=== PATIENT | female | born 1960 | race Caucasian/White ===

== ENCOUNTER 2024-03-31 09:33 | Outpatient (REF) | payer OTHER, SELFPAY ==
[2024-03-31 17:41] LABS: MANUAL DIFF FLAG NO
[2024-03-31 17:59] LABS: Basophils Absolute Auto 0.1 X10*3/uL (0.0-0.2); Basophils Percent Auto 1.8 % (0-2); Eosinophils Absolute Auto 0.1 X10*3/uL (0.0-0.4); Eosinophils Percent Auto 2.2 % (0-4); Hematocrit 40.8 % (37.0-47.0); Hemoglobin 13.4 g/dl (12.0-16.0); Lymphocytes Absolute Auto 1.1 X10*3/uL (1.2-4.9); Lymphocytes Percent Auto 38.3 % (20-40); Mean Corpuscular HGB Conc 32.8 g/dl (31.0-35.0); Mean Corpuscular Hemoglobin 32.5 pg (27.0-33.0); Mean Platelet Volume 12.2 fL (9.4-12.3); Monocytes Absolute Auto 0.3 X10*3/uL (0.1-1.2); Monocytes Percent Auto 11.6 % (2-11); Neutrophils Absolute Auto 1.3 x10*3/uL (2.0-8.3); Neutrophils Percent Auto 46.1 % (45-73); Platelet Count 190 X10*3/uL (160-400); Red Blood Count 4.12 X10*6/uL (4.20-5.50); Red Cell Distribution Width 13.8 % (11.0-16.0); White Blood Count 2.8 X10*3/uL (4.8-10.8)
[2024-03-31 18:09] LABS: Alanine Aminotransferase 89 U/L (0-31); Aspartate Amino Transferase 55 U/L (5-31); C Reactive Protein < 0.10 mg/dL (< or = 0.50); Estimated Glomerular Filt Rate > 60
[2024-03-31 18:46] LABS: Erythrocyte Sedimentation Rate 13 MM/HR (0-20)
[2024-04-01 08:09] LABS: HBS Num1 62.02 mIU/mL (0-7.99); HBc Num1 0.05 S/CO (0.00-0.79); HBsAGNum1 0.42 S/CO (0.00-0.99); Hepatitis B Core Antibody Nonreactive (Nonreactive); Hepatitis B Surface Antigen Negative (Negative); ~HepC Num1 0.09 S/CO (0.00-0.79); ~Hepatitis B Surface Antibody REACTIVE (Nonreactive); ~Hepatitis C Antibody Nonreactive (Nonreactive)
[2024-04-03 13:38] LABS: TS Negative Control Passed; TS Panel A 1; TS Panel B 2; TS Positive Control Passed; TSpotTB Negative (Negative)
== END 2024-03-31 09:34 | disposition home or self-care (01) ==
LOC: HO.HKASLDS 09:33
PROVIDERS: PCP Internal Medicine; Visit Provider Internal Medicine Rheumatology
DX: Z79.899 Other long term (current) drug therapy (principal); Z79.60 Long term (current) use of unspecified immunomodulators and immunosuppressants
CPT/HCPCS: 36415; 82565; 84450; 84460; 85025; 85652; 86140; 86481; 86704; 86706; 86803; 87340

== ENCOUNTER 2024-03-31 09:33 | Outpatient (AMB) | payer OTHER, SELFPAY ==
--- OUTSIDE RECORDS SUMMARY | 2024-03-31 09:35 | XMS_ITS ---
Author Organization [facility] Address [address] [facility] [address] [place] [address] Care Team Providers Care Personnel Director Name Role Phone Kayla Casarez MD Primary Care Provider Cami Biswas Unavailable [phone] Allergies Allergen (clinical drug ingredient) Drug/Non Drug Allergy documented on EMR Reaction Allergy Type Onset Date Status amoxicillin Amoxicillin hives Drug Allergy Act turner shrimp allergenic extract Shrimp (Diagnostic) Unknown Drug Allergy Active REASON FOR VISIT Wart(s) Medications Medication SIG (Take, Route, Frequency, Duration) Notes Start Date End Date Status Night Splint AFO - L1930 as directed 04/22/2018 Not-Taking Humira 10 MG/0.2ML as directed Subcutaneous Active Levothyroxine Sodium 50 MCG 1 tablet on an empty stomach in the morning Orally Once a day for 30 day(s) Active Methotrexate Sodium 15 MG as directed Orally Active Social History Tobacco Use: Social History Observation Description Date Details (start date - stop date) Never Smoker NA - NA Tobacco Use/Smoking Question Answer Notes Are you a: nonsmoker Additional Findings: Tobacco Non-User Current no n-smoker Alcohol Screen Question Answer Notes Did you have a drink containing alcohol in the p ast year? No Points 0 Interpretation Negative Tobacco use other than smoking: Question Answer Notes Are you an other tobacco user? No Problems Problem Type SNOMED Code ICD Code Onset Dates Problem Status W/U Status Risk Notes Problem Plantar wart (78763766) Plantar wart (B07.0) Active confirmed Vital Signs Blood pressure systolic 124 mm Hg 02/18/20 24 Blood pressure diastolic 70 mm Hg 024 Height 66 in 02/18/2024 Weight 185 lbs 02/18/2024 BMI 29.86 kg/m2 02/18/2024 Procedures Procedure Date Ordered Date Performed Result Body Sit e 13362-Hroo Destruction, 1-14 02/18/2024 N/A Encounters Encounter Location Date Provider Diagnosis [facility] [address] [place] [address] 02/18/2024 Cami Murray Right foot pain M79.671 and Plantar wart B07.0 Assessments Encounter Date Diagnosis (ICD Code) Assessment Notes Treatment Notes Treatment Clinical Notes Section Notes 02/18/2024 Right foot pain (ICD-10 - M79.671) 02/18/2024 Plantar wart (ICD-10 - B07.0) Plan Of Treatment Pending Test Test Name Order Date 71556-Xbwe Destruction, 1-02/18/2024 Next Appt Details Follow Up: 2 Months, Reason: Provider Name:Cami cruz, 04/28/2024 03:45:00 PM, [address] [place] [address], [phone], Procedure Notes * Category Sub-Category Detail Notes Wart Treatment Procedure Verruca, as desc ribed in exam, were debrided to pin- point bleeding margins with sterile 15 surgical blade, silver nitrate chemocautery applied, recomm. immune-boosting meds such as zinc, recomm. follow up with topical chemosurgical agents, Pt defers any other forms of tx - 25504 Progress Notes * Rozina BONILLA ADOB:[birth year] (63 yo F)Acc No.[id number]:02/18/2024 Progress Note Patient:?BEREPILIRozina A Provider:?Cami Murray DPM :1960???Age:63 Y???Sex:Female D ate:02/18/2024 Address:[address] [place], [place] [id number] Pcp:Kayla Casarez MD Subjective: * Chief Complaints: * ???Wart(s) * HPI: ???Skin problems:?Pt States PCP Visit: ?DATE?11/10/2023 * ROS:?General/Constitutional:?Nausea?denies.?Vomiting?denies.?Hunger Thirst?denies.?Loss appetite?denies.?Chills?denies.?Fatigue?denies.?Fever?denies.?Night Sweats?denies.?Unexplained weight loss?denies.?Unexplained weight gain?denies.?HEENTM:?Dentures?denies.?Dizziness?denies.?Glasses/contacts?admits.?Retinopathy?de nies.?Blurred/double vision?denies.?TMJ?denies.?Discharge/drainage?denies.?Implants?denies.?Sore throat?denies.?Dental implants?denies.?Hard of hearing ?denies.?Difficulty chewing/swallowing/speaking?denies.?Nose bleeds?denies.?Sore mouth?denies.?Respiratory:?On Oxygen?denies.?Pneumonia/pleurisy?denies.?Bronchitis?denies.?Emphysema?denies.?C oughing?denies.?Cough blood?denies.?Shortness of breath?denies.?Wheezing?denies.?Cardiovascular:?Pacemaker?denies.?MVP?denies.?WPW?denies.?CHF?denies.?Heart attack?denies.?Septal defect?denies.?Rapid beat?denies.?Chest pain ?denies.?Atrial Fib.?denies.?Murmur/Palpitations?denies.?Gastrointestinal:?Hemorrhoids?denies.?Stomach/Abdominal pain?denies.?Dark blood stool?denies.?Irritable bowel ?denies.?Constipation?denies.?Diarrhea?denies.?Hematology:?Swelling?denies.?Clots?denies.?Varicose Veins?denies.?Bruising?denies.?Bleeding problem?denies.?Genitourinary:?Blood urine?denies.?Frequent/Painfu/urination/bladder control?denies.?Kidney stones?denies.?Infection (UTI)?denies.?Nephropathy?denies.?sex trans dis (STD)?denies.?Prostate?denies.?Musculoskeletal:?Hammertoes?denies.?Bunions?denies.?Back Pain?denies.?Muscle Cramps/ Resting?denies.?Muscle cramps / walking?denies.?Generalized aches and pains?denies.?Weakness?denies.?Integ.:?Mendes?denies.?Scars?denies.?Corns/calluses?admits.?Ingrown nails?denies.?Painful nails?denies.?Open Sores?denies.?Rashes?denies.?Neurologic:?Difficulty sleeping?denies.?Brain disorder?denies.?Numbness?denies.?Balance trouble?denies.?Confusion?denies.?Fainting/blackouts?denies.?Tingling?denies.?Tr emors?denies.? * Medical History:? * Surgical History:?umbilical hernia rt hernia * Hospitalization/Major Diagno stic Procedure:?Denies Past Hospitalization * Family History:?Mother: dece ased, lung cancer.?Father: alive.? * Social History:?Tobacco Use:?Tobacco Use/Smoking?Are you a:?nonsmoker ?Additional Findings: Tobacco Non-User?Current non-smoker ?Tobacco use other than smoking?Are you an other tobacco user??No ???Drugs/Alcohol:?Drugs?Have you used drugs other than those for medical reasons in the past 12 months??No ?Alcohol Screen?Did you have a drink containing alcohol in the past year??No ?Points?0 ?Interpretation?Negative ???Miscellaneous:?Caffeine: yes, 1 cup coffee a day. ?Children: no. ?Exercise: yes, walking, swimming. ?Marital status: . ?Occupation: PA. * Medications:?TakingHumira 10 MG/0.2ML Prefilled Syringe Kit as directed Subcutaneous Levothyroxine Sodium 50 MCG Tablet 1 tablet on an empty stomach in the morning Orally Once a day Methotrexate Sodium 15 MG Tablet as directed Orally Taking Humira 10 MG/0.2ML Prefilled Syringe Kit as directed Subcutaneous Taking Levothyroxine Sodium 50 MCG Tablet 1 tablet on an empty stomach in the morning Orally Once a day Taking Methotrexate Sodium 15 MG Tablet as directed Orally Not-Taking/PRNNight Splint AFO - L1930 as directed Not-Taking/PRN Night Splint AFO - L1930 as directed * Allergies:?Amoxicillin: hive sShrimp (Diagnostic)yes[Allergies Verified] Objective: * Vitals:?Ht: 66, Wt:185, BMI: 29.86, Shoe size:10-11, BP:124/70mm Hg, Wt-k.91 kg. * Examination: ???Dermatologic: ?VERRUCA:?CONT TO, Reveals a Single , multi-loculated , mosaic-patterned, round, raised, flat-topped, petechial bleeding papule(s), with cauliflower appearance and interruption of skin lines, pain to lateral compression, and size estimated at _5__ mm diameter, plantar lateral forefoot, RIGHT foot.? Assessment: * Assessment: 1.?Right foot pain - M79.671 ???2.?Plantar wart - B07.0 (Primary)??? Plan: * Treatment: * Procedures:?Wart Treatment:?Procedure?Verruca, as described in exam, were debrided to pin-point bleeding margins with sterile 15 surgical blade, silver nitrate chemocautery applied, recomm. immune-boosting meds such as zinc, recomm. follow up with topical chemosurgical agents, Pt defers any other forms of tx - 65068.? * Procedure Codes:? * Follow Up:?2 Months * Images: * Sign off status: Completed true * Provider:?Cami Murray DPM Date:?04/19/2023 Generated for Nessa gallegos/Reji/Justiceitting on:?03/31/2024 09:35 AM EST History and Physical Notes * HPI (History of Present Illness) Category Sub-Category Detail Notes Category Not es Skin problems Pt States PCP Visit: DATE: 11/10/2023 Examination Category Sub-Category Detail Notes Category Not es Dermatologic VERRUCA: CONT TO, Reveals a Single , multi-loculated , mosaic-patterned, round, raised, flat-topped, petechial bleeding papule(s), with cauliflower appearance and interruption of skin lines, pain to lateral compression, and size estimated at _5__ mm diameter, plantar lateral forefoot, RIGHT foot
--- OUTSIDE RECORDS SUMMARY | 2024-03-31 09:35 | XMS_ITS ---
Author Organization [facility] Address [address] [place] [address] Care Team Providers Care Sugar Boiler Name Role Phone Kayla Casarez MD Primary Care Provider UnavaCami Rollins Unavailable [phone] REASON FOR VISIT Self Pay Encounters Encounter Location Date Provider Diagnosis [address] [address] 02/18/2024 Cami Murray Plan Of Treatment Next Appt Details Provider Name:Cami cruz, 04/28/2024 03:45:00 PM, [address] [place] [address], [phone], Progress Notes * Rozina BONILLA ADOB:[birth year] (63 yo F)Acc No.[id number]:02/18/2024 Patient:?Rozina BONILLA :1960???Age:63 Y???Sex:Female Address:[address], [address] * true * Date:? Generated for Printi ng/Favivianag/eTransmitting on:?03/31/2024 09:35 AM EST
--- OUTSIDE RECORDS SUMMARY | 2024-03-31 09:36 | XMS_ITS ---
[facility] Address [address] [facility] [place] [address] Care Team Providers Care Air Intelligence Officer Name Role Phone Kayla Casarez MD Primary Care Provider Cami Biswas Unavailable [phone] Chidi Contreras Unavailable [phone] Allergies Allergen (clinical drug ingredient) Drug/Non Drug Allergy documented on EMR Reaction Allergy Type Onset Date Status amoxicillin Amoxicillin hives Drug Allergy Act turner shrimp allergenic extract Shrimp (Diagnostic) Unknown Drug Allergy Active REASON FOR VISIT Wart(s), Last Visit PCP: 10/2022 Medications Medication SIG (Take, Route, Frequency, Duration) Notes Start Date End Date Status Humira 10 MG/0.2ML as directed Subcutaneous Active Levothyroxine Sodium 50 MCG 1 tablet on an empty stomach in the morning Orally Once a day for 30 day(s) Active Methotrexate Sodium 15 MG as directed Orally Active Night Splint AFO - L1930 as directed 04/22/2018 Not-Taking Social History Tobacco Use: Social History Observation [...] Are you an other tobacco user? 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 ; Psoriatic arthritis L40.50 ; Pain in right ankle and joints of right foot M25.571 ; Pain in left ankle and joints of left foot M25.572 and Other chronic pain G89.29 Assessments Encounter Date Diagnosis (ICD Code) Assessment Notes Treatment Notes Treatment Clinical Notes Section Notes 11/12/2023 Other viral warts (ICD-10 - B07.8) 11/12/2023 Pain in left foot (ICD-10 - M79.672) 11/12/2023 Pain in right foot (ICD-10 - M79.671) 11/12/2023 Eccrine poroma of foot, 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) 11/12/2023 Psoriatic arthritis (ICD-10 - L40.50) 11/12/2023 Pain in right ankle and joints of right foot (ICD-10 - M25.571) 11/12/2023 Pain in left ankle and joints of left foot (ICD-10 - M25.572) 11/12/2023 Other chronic pain (ICD-10 - G89.29) Plan Of Treatment Next Appt Details Follow Up: 3 Months, Reason: Provider Name:Cami cruz, 04/28/2024 03:45:00 PM, [address] [place] [address], [phone], Procedure Notes * Category Sub-Category Detail Notes Wart Treatment Procedure Verrucae(s) were debrided to pin-point bleeding margins with sterile surgical blade (91233), silver nitrate chemocautery applied, recomm. Wartstick 40% Salicylic acid application under occlusion as directed Progress Notes * Rozina BONILLA ADOB:[birth year] (63 yo F)Acc No.[id number]:11/12/2023 Progress Note Patient:?Rozina Bonilla Provider:?Chidi Contreras DPM :1960???Age:63 Y???Sex:Female D ate:11/12/2023 Address:[facility] [address] [place] [facility] Pcp:Kayla Casarez MD Subjective: * Chief Complaints: * ???Wart(s)Last Visit PCP: 2022 * HPI: ???Wart:?Nature:?sharp pain.?Location:?plantar forefoot, right.?Duration:?several years ago.?Onset/Cause:?unknown.?Ankle Pain:?Nature:?aching, sharp.?Location:?B/L ankles.?Duration: ?three months .?Onset/Cause:?gradual.?Course:?worse.?Aggravated by:?any pressure, standing, walking.?Treatments:?[facility]; pt may go on new med.?Severity/Quality:?considered 6 out of 10.? * ROS:?General/Constitutional:?Nausea?denies.?Vomiting?denies.?Hunger Thirst?denies.?Loss appetite?denies.?Chills?denies.?Fatigue?denies.?Fever?denies.?Night Sweats?denies.?Unexplained weight loss?denies.?Unexplained [...] ???Miscellaneous:?Caffeine: yes, 1 cup coffee a day. ?no Children. ?Exercise: yes, walking, swimming. ?Marital status: . ?Occupation: PA. * Medications:?TakingHumira 10 MG/0.2ML Prefilled Syringe Kit as directed Subcutaneous Levothyroxine Sodium 50 MCG Tablet 1 tablet on an empty stomach in the morning Orally Once a dayMethotrexate Sodium 15 MG Tablet as directed Orally Taking Humira 10 MG/0.2ML Prefilled Syringe Kit as directed Subcutaneous Taking Levothyroxine Sodium 50 MCG Tablet 1 tablet on an empty stomach in the morning Orally Once a dayTaking Methotrexate Sodium 15 MG Tablet as directed Orally Not-Taking/PRNNight Splint AFO - L1930 as directed Medication List reviewed and reconciled with the patientNot-Taking/PRN Night Splint AFO - L1930 as directed Medication List reviewed and reconciled with the patient * Allergies:?Amoxicillin: hive sShrimp (Diagnostic)yes[Allergies Verified] Objective: * Vitals:?Ht: 66, Wt:185, BMI: 29.86, Shoe size:10-11, BP:124/70 mm Hg. * Examination: ???General Examination: ?GENERAL APPEARANCE:?pleasant, alert, well nourished, well developed, well hydrated, with good attention to hygene/body habitus, and in no acute distress.?ORIENTED:?person,place, and time.?Neurological: ?SENSORY:?Neurological exam reveals intact sensorium, pain sensation normal, vibration sensation intact, pinprick sensation is normal in the lower extremities, pt denies, anesthesia, burning, paresthesia, tingling, B/L, Neurological exam demonstrates pop both medial and lateral rachid ankles.?TINEL'S COMPRESSION:?Negative tarsal tunnel, dominik pedis, and medial calcaneal nerves, B/L.?BABINSKI REFLEX:?Absent, B/L.?Vascular: ?DP PULSES:?2/4, B/L.?PT PULSES:?2/4, B/L.?CAPILLARY FILL TIME:?3 secs. per digit, B/L.?SKIN TEMPERTURE GRADIENT OF THE LOWER EXTERMITIES:?warm to cool, proximal to distal, B/L.?HAIR GROWTH/TEXTURE/ELASTICITY/TURGOR:?normal, B/L.?EDEMA:?no edema.?Dermatologic: ?SKIN FINDINGS:?Skin exam reveals normal texture, elasticity, and tugor. There are no masses. The interspaces are clear.?VERRUCA:?reveals Multiple ( _one plantar?right 5th mtpj__ ), multi- loculated , mosaic, round, raised, flat-topped, petechial bleeding papulae(s), with cauliflower appearance and interrruption of skin lines, with pain to lateral compression, and size estimated at _4-5_ mm diameter, plantar Forefoot, rt 5th.?Heel Pain: ?INSPECTION REVEALS:?POP Plantar Fascia med. and central bands, intrinsic musc., infracalcaneal bursa, and med calc tubercle . No pain: posterior/superior heel, achilles bursa/tendon, sinus tarsi, peroneals; no limited STJ ROM, calor, or eccymosis. Pain on Heel Compression absent.?Orthopedic: ?MUSCLE STRENGTH:?5/5 all groups in a symmetrical fashion B/L.?GAIT ABNORMALITY:?pronated, abducted, B/L.?FOOT MORPHOLOGY:? Pes Planus structure, B/L.?TAILOR'S BUNION:? Prominent, painful, inflammed 5th MTH/MPJ, B/L.? 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 Pain in left ankle and joints of left foot - M25.572?8.?Other chronic pain - G89.29? Plan: * Treatment: * Procedures:?Wart Treatment:?Procedure?Verrucae(s) were debrided to pin-point bleeding margins with sterile surgical blade (10392), silver nitrate chemocautery applied, recomm. Wartstick 40% Salicylic acid application under occlusion as directed.? * Procedure Codes:?45122 Wart Destruction, 1-14, Modifiers: XS * Follow Up:?3 Months * Images: * Sign off status: Completed true * Provider:?Chidi Contreras DPM Date:? 024 Generated for Printi ng/Faxing/eTransmitting on:?03/31/2024 09:35 AM EST History and Physical Notes * HPI (History of Present Illness) Category Sub-Category Detail Notes Category Not es Ankle Pain Duration: three months Nature: aching, sharp Severity/Quality: considered 6 out of 10 Treatments: [facility] Meliton me[facility]; pt may go on new med Course: worse Location: B/L ankles Onset/Cause: gradual Aggravated by: any pressure, standi ng, walking Wart Onset/Cause: unknown Duration: several years ago Location: plantar forefoot, ri ght Nature: sharp pain Examination Category Sub-Category Detail Notes Category Not es Heel Pain INSPECTION REVEALS: POP Plantar Fascia med. and central bands, intrinsic musc., infracalcaneal bursa, and med calc tubercle . No pain: posterior/superior heel, achilles bursa/tendon, sinus tarsi, peroneals; no limited STJ ROM, calor, or eccymosis. Pain on Heel Compression absent Neurological SENSORY: Neurological exa m reveals intact sensorium, pain sensation normal, vibration sensation intact, pinprick sensation is normal in the lower extremities, pt denies, anesthesia, burning, paresthesia, tingling, B/L, Neurological exam demonstrates pop both medial and lateral rachid ankles BABINSKI REFLEX: Absent, B/L TINEL'S COMPRESSION: Negative tarsal supriya fior, dominik pedis, and medial calcaneal nerves, B/L Dermatologic SKIN FINDINGS: Skin exam reveal s normal texture, elasticity, and tugor. There are no masses. The interspaces are clear VERRUCA: reveals Multiple ( _ one plantar right 5th mtpj__ ), multi-loculated , mosaic, round, raised, flat-topped, petechial bleeding papulae(s), with cauliflower appearance and interrruption of skin lines, with pain to lateral compression, and size estimated at _4-5_ mm diameter, plantar Forefoot, rt 5th Orthopedic GAIT ABNORMALITY: pronated, abducted, B/L FOOT MORPHOLOGY: Pes Planus structure , B/L TAILOR'S BUNION: Prominent, painful, inflammed 5th MTH/MPJ, B/L MUSCLE STRENGTH: 5/5 all groups in a symmetrical fashion B/L General Examination GENERAL APPEARANCE: pleasant , alert, well nourished, well developed, well hydrated, with good attention to hygene/body habitus, and in no acute distress ORIENTED: person,place, and ti me Vascular DP PULSES (B): 2/4, B/L PT PULSES (B): 2/4, B/L CAPILLARY FILL TIME: 3 secs. per digit, B/L TEMPERTURE GRADIENT (C): warm to cool, p roximal to distal, B/L TROPHIC CONDITION-TEXTURE/ELASTICITY/TURGOR/HAIR GROWTH (B): normal, B/L EDEMA (C): no edema
--- OUTSIDE RECORDS SUMMARY | 2024-03-31 09:36 | XMS_ITS | Patient Health Record ---
Author Organization [facility] de[facility] [place] Address [address] [place] [address] Care Team Providers Care Cylinder Die Machine Operator Name Role Phone Kayla Casarez MD Primary Care Provider Cami Biswas Unavailable [phone] Chidi Contreras Unavailable [phone] Allergies Allergen (clinical drug ingredient) Drug/Non Drug Allergy documented on EMR Reaction Allergy Type Onset Date Status amoxicillin Amoxicillin hives Drug Allergy Act turner shrimp allergenic extract Shrimp (Diagnostic) Unknown Drug Allergy Active Reason For Referral No Information Medications Medication SIG (Take, Route, Frequency, Duration) Notes Start Date End Date Status Night Splint AFO - L1930 as directed 04/22/2018 Not-Taking Humira 10 MG/0.2ML as directed Subcutaneous Active Levothyroxine Sodium 50 MCG 1 tablet on an empty stomach in the morning Orally Once a day for 30 day(s) Active Methotrexate Sodium 15 MG as directed Orally Active Immunizations Vaccine Route Administration Date Status Comme nts COVID-19 Moderna Vaccine Unknown 11/22/2020 Administered 1st 04/09/2020 2st 05/08/2020 Influenza Unknown 12/22/2020 Administered Social History Tobacco Use: Social History Observation [...] W/U Status Risk Notes Problem Plantar wart (78422612) Plantar wart (B07.0) Active confirmed Problem 94039274 Other chronic pain (G89.29) Active confirmed Problem 551864642 Psoriatic arthritis (L40.50) Active confirmed Vital Signs Blood pressure diastolic 70 mm Hg 02/18/2024 Height 66 in 02/18/2024 Blood pressure systolic 124 mm Hg 02/18/2024 Weight 185 lbs 02/18/2024 BMI 29.86 kg/m2 02/18/2024 Procedures Procedure Date Ordered Date Performed Result Body Sit e 29767-Putm Destruction, 1-14 02/18/2024 N/A Encounters Encounter Location Date Provider Diagnosis [address] [address] 05/14/2023 Chidi Contreras Other viral warts B07.8 ; Pain in left foot M79.672 ; Pain in right foot M79.671 ; Eccrine poroma of foot, 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 ; Psoriatic arthritis L40.50 ; Pain in right ankle and joints of right foot M25.571 ; Pain in left ankle and joints of left foot M25.572 and Other chronic pain G89.[address] [address] 08/13/2023 ChidiZeng Other viral warts B07.8 ; Pain in left foot M79.672 ; Pain in right foot M79.671 ; Eccrine poroma of foot, 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 ; Psoriatic arthritis L40.50 ; Pain in right ankle and joints of right foot M25.571 ; Pain in left ankle and joints of left foot M25.572 and Other chronic pain G89.[address] [address] 11/12/2023 Chidi Contreras Other viral warts B07.8 ; Pain in left foot M79.672 ; Pain in right foot M79.671 ; Eccrine poroma of foot, 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 ; Psoriatic arthritis L40.50 ; Pain in right ankle and joints of right foot M25.571 ; Pain in left ankle and joints of left foot M25.572 and Other chronic pain G89.[address] [facility] [address] 02/18/2024 Cami Trevor Right foot pain M79.671 and Plantar wart B07.[address] [address] [facility]14/[facility] [address] [facility] [address] 02/18/2024 Cami Murray Assessments Encounter Date Diagnosis (ICD Code) Assessment Notes Treatment Notes Treatment Clinical Notes Section Notes 05/14/2023 Other viral warts (ICD-10 - B07.8) 05/14/2023 Pain in left foot (ICD-10 - M79.672) 08/13/2023 Other viral warts (ICD-10 - B07.8) 08/13/2023 Pain in left foot (ICD-10 - M79.672) 11/12/2023 Other viral warts (ICD-10 - B07.8) 02/18/2024 Right foot pain (ICD-10 - M79.671) 02/18/2024 Plantar wart (ICD-10 - B07.0) 11/12/2023 Pain in left foot (ICD-10 - M79.672) 08/13/2023 Pain in right foot (ICD-10 - M79.671) 05/14/2023 Pain in right foot (ICD-10 - M79.671) 05/14/2023 Eccrine poroma of foot, 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) 11/12/2023 Pain in right foot (ICD-10 - M79.671) 08/13/2023 Eccrine poroma of foot, 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) 08/13/2023 Psoriatic arthritis (ICD-10 - L40.50) 11/12/2023 Eccrine poroma of foot, 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) 05/14/2023 Psoriatic arthritis (ICD-10 - L40.50) 08/13/2023 Pain in right ankle and joints of right foot (ICD-10 - M25.571) 05/14/2023 Pain in right ankle and joints of right foot (ICD-10 - M25.571) 11/12/2023 Psoriatic arthritis (ICD-10 - L40.50) 11/12/2023 Pain in right ankle and joints of right foot (ICD-10 - M25.571) 05/14/2023 Pain in left ankle and joints of left foot (ICD-10 - M25.572) 08/13/2023 Pain in left ankle and joints of left foot (ICD-10 - M25.572) 08/13/2023 Other chronic pain (ICD-10 - G89.29) 05/14/2023 Other chronic pain (ICD-10 - G89.29) 11/12/2023 Pain in left ankle and joints of left foot (ICD-10 - M25.572) 11/12/2023 Other chronic pain (ICD-10 - G89.29) Plan Of Treatment Pending Test Test Name Order Date X ray : Foot, left 3V 04/22/2018 X ray : Foot, right 3V 04/22/2018 55479-Oojs Destruction, 1-14 03/31/2019 73126-Zopo Destruction, 1-14 02/18/2024 Next Appt Details Provider Name:Cami Garg nancy, 04/28/2024 03:45:00 PM, [address] [place], [address], Insurance Providers Payer Name Payer Address Payer Phone Subscriber Number Group Number Insured Name Patient Relationship to Insured Coverage Start Date Coverage End Date [facility] [address] [place] [address] [id number] Rozina Bonilla Self - patient is the insured Medical (General) History Medical History History ICD Code Arthritis thyroid Psoriatic arthritis Surgical History Surgery Date(Month/Year) umbilical hernia rt hernia
--- NOTE | 2024-03-31 09:52 | A.OFFVIS_ITS ---
Vital Signs 03/31/24 09:53 Height 5 ft 6 in Weight 186 lb 4 oz BMI 30.1 BP 128/72 Blood Pressure Location Lt brachial Position Sitting Pulse 92 Pulse Source Pulse Oximeter Pulse Oximetry (%) 98 Oxygen Delivery Method Room Air Intake Visit Reasons: Arthritis Allergies Penicillins Allergy (Mild, Verified 03/31/24 09:58) Hives HPI HPI Arthritis: Details: History of psoriatic arthritis. [facility] who started her on leflunomide. She is on leflunomide 20 mg daily, methotrexate subcutaneous injection 15 mg once weekly (.6ml), folic acid 2 mg daily and Humira weekly. She has psoriatic arthritis and reports that she has reduced pain in her ankles but still has swelling and stiffness. She has been experiencing feeling unwell with dizziness since being on leflunomide. She takes leflunomide after dinner. Initially symptoms were more pronounced but she still does not feel like herself prior to leflunomide. Higher doses of methotrexate causes tinnitus. She is currently tolerating tinnitus. She has not been on any other DMARD regimen in the past. Psoriasis is not active. No recent infections. [facility] Medical History (Updated 03/31/24 @ 12:33 by Esequiel Delcid MD) Psoriatic arthritis Review of Systems Const All systems reviewed & are unremarkable except as noted in HPI and below Physical Exam Vital Signs: Last Vital Signs Pulse 92 03/31/24 09:53 BP 128/72 03/31/24 09:53 Pulse Ox 98 03/31/24 09:53 Oxygen Delivery Method Room Air 03/31/24 09:53 BMI result Body Mass Index 30.1 Const Other: General: Comfortable CVS: RRR Respiratory: clear to auscultation bilaterally. Good respiratory effort Skin: No lesions seen MSK: No tenderness of upper extremities. Good range of motion of upper extremities and lower extremities. She has slight swelling of bilateral ankles. Tender bilateral ankles and MTPs. No dactylitis. Assessment & Plan Assessment & Plan (1) Psoriatic arthritis: Comment: She has partial relief with addition of leflunomide in controlling inflammatory arthritis but it is causing side effect of dizziness. Uncontrolled on current regimen. She is currently on 3 immunosuppressive agents. We discussed changing DMARD therapy. I recommended that she switch Humira and leflunomide to Enbrel. We discussed side effects, risks and benefits. Code(s): L40.50 - Arthropathic psoriasis, unspecified Category: Medical Plan: Labs for disease and drug monitoring on high-risk medication ordered this visit At this time she will continue Humira weekly subcutaneous injection, methotrexate 15 mg once weekly subcutaneous injection, folic acid 2 mg daily and leflunomide 20 mg daily. As soon as Enbrel is approved, it will replace Humira and leflunomide. She will call office when she needs refills. Requesting medical records [facility] Return to clinic in 3 months (2) Other intermodal owner operator truck driver (current) drug therapy: Code(s): Z79.899 - Other intermodal owner operator truck driver (current) drug therapy Category: Medical Plan: See above Orders: Orders Creatinine Today Z79.60 - [facility] (current) use of unspecified immunomodulators and immunosuppressants Hepatitis B,C Profile Today Z79.899 - Other intermodal owner operator truck driver (current) drug therapy T Spot TB Today Z79.899 - Other intermodal owner operator truck driver (current) drug therapy Erythrocyte Sedimentation Rate Today Z79.899 - Other fpc (current) drug therapy C Reactive Protein Today Z79.899 - Other fpc (current) drug therapy Alanine Aminotransferase Today Z79.60 - ad terminal makeup operator (current) use of unspecified immunomodulators and immunosuppressants Aspartate Amino Transferase Today Z79.60 - ad terminal makeup operator (current) use of unspecified immunomodulators and immunosuppressants Complete Blood Count Auto Diff Today Z79.60 - [facility] (current) use of unspecified immunomodulators and immunosuppressants Medications: New etanercept (Enbrel SureClick) PA needed. 50 mg subcut QWEEK 4 mL 2RF Coding Level of Care Code Est Pt Level 4 (34330) Complex EM visit Add On G2211 Diagnoses Psoriatic arthritis L40.50 Other intermodal owner operator truck driver (current) drug therapy Z79.899
[2024-03-31 09:53] VITALS: BP 128/72; PULSE 92; O2SAT 98; BMI 30.1
== END 2024-03-31 10:30 | disposition home or self-care (01) ==
PROVIDERS: PCP Internal Medicine; Visit Provider Internal Medicine Rheumatology
DX: L40.50 Arthropathic psoriasis, unspecified (principal); Z79.899 Other long term (current) drug therapy
CPT/HCPCS: 99214

== ENCOUNTER 2024-05-03 10:18 | Outpatient (REF) | payer OTHER, SELFPAY ==
[2024-05-03 10:44] LABS: MANUAL DIFF FLAG NO
--- OUTSIDE RECORDS SUMMARY | 2024-05-03 11:12 | XMS_ITS | Patient Health Record ---
Author Organization [facility] de[place] Address [address] [address] Care Team Providers Care Front Desk Assistant Name Role Phone Kayla Casarez MD Primary Care Provider Cami Biswas Unavailable [phone] Chidi Contreras Unavailable [phone] Allergies Allergen (clinical drug ingredient) Drug/Non Drug [...] W/U Status Risk Notes Problem Plantar wart (24675996) Plantar wart (B07.0) Active confirmed Problem 34884302 Other chronic pain (G89.29) Active confirmed Problem 771168838 Psoriatic arthritis (L40.50) Active confirmed Vital Signs Blood pressure diastolic 70 mm Hg 02/18/2024 Height 66 in 02/18/2024 Blood pressure systolic 124 mm Hg 02/18/2024 Weight 185 lbs 02/18/2024 BMI 29.86 kg/m2 02/18/2024 Procedures Procedure Date Ordered Date Performed Result Body Sit e 93523-Gizy Destruction, 1-14 02/18/2024 N/A Encounters Encounter Location Date Provider Diagnosis [address] [address] 05/14/2023 Chidi Contreras Other viral warts B07.8 ; Pain in left foot M79.672 ; Pain in right foot M79.671 ; Eccrine poroma of foot, 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 ; Psoriatic arthritis L40.50 ; Pain in right ankle and joints of right foot M25.571 ; Pain in left ankle and joints of left foot M25.572 and Other chronic pain G89.[address] [address] 08/13/2023 ChidiZeng Other viral warts B07.8 ; Pain in left foot M79.672 ; Pain in right foot M79.671 ; Eccrine poroma of foot, 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 ; Psoriatic arthritis L40.50 ; Pain in right ankle and joints of right foot M25.571 ; Pain in left ankle and joints of left foot M25.572 and Other chronic pain G89.[address] [address] 11/12/2023 Chidi Contreras Other viral warts B07.8 ; Pain in left foot M79.672 ; Pain in right foot M79.671 ; Eccrine poroma of foot, 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 ; Psoriatic arthritis L40.50 ; Pain in right ankle and joints of right foot M25.571 ; Pain in left ankle and joints of left foot M25.572 and Other chronic pain G89.29 [facility] [address] 02/18/2024 Cami Trevor Right foot pain M79.671 and Plantar wart B07.[address] [address] 05/14/[address] [address] 06/18/20[address] [facility] [address] 02/18/2024 Cami Murray [address] [address] 04/28/2024 Cami Trevor Assessments Encounter Date Diagnosis (ICD Code) Assessment [...] X ray : Foot, right 3V 04/22/2018 85020-Bfaz Destruction, 1-14 03/31/2019 90311-Zhmm Destruction, 1-14 02/18/2024 Next Appt Details Provider Name:Sabine hancock, 06/09/2024 10:15:00 AM, [address] [place], [address], Insurance Providers Payer Name Payer Address Payer Phone Subscriber Number Group Number Insured Name Patient Relationship to Insured Coverage Start Date Coverage End Date [facility] [address] [place] [address] [id number] Rozina Bonilla Self - patient is the insured Medical (General) History Medical History History ICD Code Arthritis thyroid Psoriatic arthritis Surgical History Surgery Date(Month/Year) umbilical hernia rt hernia
--- OUTSIDE RECORDS SUMMARY | 2024-05-03 11:13 | XMS_ITS ---
Author Organization [facility] Address [address] [place] [address] Care Team Providers Care Repulping Supervisor Name Role Phone Kayla Casarez MD Primary Care Provider UnavaCami Rollins Unavailable [phone] REASON FOR VISIT appt Encounters Encounter Location Date Provider Diagnosis [address] [address] 04/28/2024 Cami Murray Plan Of Treatment Next Appt Details Provider Name:Sabine hancock, 06/09/2024 10:15:00 AM, [address] [place] [address], [address], Progress Notes * Rozina BONILLA ADOB:[birth year] (63 yo F)Acc No.[id number]:04/28/2024 Patient:?Rozina BONILLA :1960???Age:63 Y???Sex:Female Address:[address], [place], [address] * true * Date:? Generated for Printi ng/Favivianag/eTransmitting on:?05/03/2024 11:12 AM EST
--- OUTSIDE RECORDS SUMMARY | 2024-05-03 11:13 | XMS_ITS ---
Author Organization [facility] Address [address] [place] [address] Care Team Providers Care Physician Office Clin Asst Name Role Phone Hermelindo SABA, Kayla Primary Care Provider UnavaCami Rollins Unavailable [phone] Encounters Encounter Location Date Provider Diagnosis [address] [address] 04/28/2024 Cami Murray Plan Of Treatment Next Appt Details Provider Name:Sabine hancock, 06/09/2024 10:15:00 AM, [address] [place] [address], [address], Progress Notes * Rozina BONILLA ADOB:[birth year] (63 yo F)Acc No.[id number]:04/28/2024 Progress Notes Patient:?Rozina BONILLA Provider:?Cami Murray DPM :1960???Age:63 Y???Sex:Female D ate:04/28/2024 Address:[address], [place] Pcp:Kayla Casarez MD Subjective: * Chief Complaints: * ??? * Medical History:? Objective: * Vitals:? Assessment: Plan: * Treatment: * Images: * The named appointment provid er may or may not be the originator of this progress note, and it is not deemed complete until electronically signed by the appointment provider. Sign off status: Pending * Provider:?Cami Murray DPM Date:?0 04/28/2024 Generated for Nessa gallegos/Reji/Justyn on:?05/03/2024 11:12 AM EST
--- OUTSIDE RECORDS SUMMARY | 2024-05-03 11:13 | XMS_ITS | Clinical Summary ---
Author Organization [facility] Address [address] [place] [address] Care Team Providers Care Theatre Professor Name Role Phone Unavailable Primary Care Provider Unavailabl e Social History Tobacco Use Types Packs/Day Years Used Date Smoking Tobacco: Never Assessed Comments Unknown Sex and Gender Information Value Date Recorded Sex Assigned at Not on file Legal Sex Female 9:56 AM EDT Gender Identity Not on file Sexual Orientation Not on file Plan of Treatment Health Maintenance Due Date Last Done Comments Hepatitis C Screening 1960 Pap Smear 1976 DTaP/Tdap/Td (1 - Tdap) 1978 Mammogram/Breast Imaging 2000 Pneumococcal 50+ years (1 of 1 - PCV) 2010 Zoster (Shingrix) (1 of 2) 2010 COVID-19 Vaccine ( - 2023-2 5 season) 2023 Influenza (#1) 2023 RSV (1 - 1-dose 75+ series) 07/25/2035 HPV Vaccine Aged Out No longer eligi ble based on patient's age to complete this topic Hep A Aged Out No longer eligi ble based on patient's age to complete this topic Hep B Aged Out No longer eligi ble based on patient's age to complete this topic Hib Aged Out No longer eligi ble based on patient's age to complete this topic Meningococcal ACWY Aged Out No longer eligible based on patient's age to complete this topic Zoster (Zostavax) Discontinued
--- OUTSIDE RECORDS SUMMARY | 2024-05-03 11:13 | XMS_ITS ---
Author Organization [facility] Address [address] [place] [address] Care Team Providers Care Production Superintendent Hydro Name Role Phone Kayla Casarez MD Primary Care Provider Unavai Cami Gonzalez Unavailable [phone] REASON FOR VISIT Self Pay Encounters Encounter Location Date Provider Diagnosis [address] [address] 02/18/2024 Cami Murray Plan Of Treatment Next Appt Details Provider Name:Sabine hancock, 06/09/2024 10:15:00 AM, [address] [place] [address], [address], Progress Notes * Rozina BONILLA ADOB:[birth year] (63 yo F)Acc No.[id number]:02/18/2024 Patient:?Rozina BONILLA :1960???Age:63 Y???Sex:Female Address:[address], [place], [address] * true * Date:? Generated for Printi ng/Favivianag/eTransmitting on:?05/03/2024 11:12 AM EST
[2024-05-03 11:41] LABS: Basophils Percent Auto 0.7 % (0-2); Eosinophils Absolute Auto 0.1 X10*3/uL (0.0-0.4); Hematocrit 38.1 % (37.0-47.0); Hemoglobin 12.4 g/dl (12.0-16.0); Imm Gran Abs Auto 0.01 X10*3/uL (0.00-0.03); Imm Gran Pct Auto 0.2 % (0.0-0.4); Lymphocytes Absolute Auto 1.6 X10*3/uL (1.2-4.9); Lymphocytes Percent Auto 36.5 % (20-40); Mean Corpuscular HGB Conc 32.5 g/dl (31.0-35.0); Mean Corpuscular Hemoglobin 32.6 pg (27.0-33.0); Mean Corpuscular Volume 100.3 fL (80.0-98.0); Mean Platelet Volume 11.6 fL (9.4-12.3); Monocytes Absolute Auto 0.8 X10*3/uL (0.1-1.2); Monocytes Percent Auto 19.2 % (2-11); Neutrophils Absolute Auto 1.8 x10*3/uL (2.0-8.3); Neutrophils Percent Auto 40.4 % (45-73); Platelet Count 192 X10*3/uL (160-400); Red Cell Distribution Width 13.8 % (11.0-16.0); White Blood Count 4.4 X10*3/uL (4.8-10.8)
[2024-05-03 12:09] LABS: Alanine Aminotransferase 39 U/L (0-31); Aspartate Amino Transferase 33 U/L (5-31)
== END 2024-05-03 10:19 | disposition home or self-care (01) ==
LOC: HO.LAB 10:18
PROVIDERS: PCP Internal Medicine; Visit Provider Internal Medicine Rheumatology
DX: R74.01 Elevation of levels of liver transaminase levels (principal); D72.819 Decreased white blood cell count, unspecified
CPT/HCPCS: 36415; 84450; 84460; 85025

== ENCOUNTER 2024-05-12 08:13 | Outpatient (AMB) | payer OTHER, SELFPAY ==
--- NOTE | 2024-05-12 08:16 | MHC.OFFVIS ---
Vital Signs 05/12/24 08:18 Height 5 ft 6 in Weight 187 lb 8 oz BMI 30.3 BP 130/88 Blood Pressure Location Rt brachial Position Sitting Pulse 70 Pulse Source Pulse Oximeter Pulse Oximetry (%) 99 Oxygen Delivery Method Room Air Intake Visit Reasons: discuss labs Intake Note: Pt present today to discuss labs for Psoriatic arthritis. Allergies Penicillins Allergy (Mild, Verified 05/12/24 08:20) Hives HPI HPI discuss labs: Details: She continues to have morning stiffness that lasts at least 1 hour before she gets moving. Increased stiffness off of leflunomide. She continues to have pain and swelling in her ankles. [facility] Medical History Psoriatic arthritis Review of Systems Const All systems reviewed & are unremarkable except as noted in HPI and below Physical Exam Vital Signs: Last Vital Signs Pulse 70 05/12/24 08:18 BP 130/88 05/12/24 08:18 Pulse Ox 99 05/12/24 08:18 Oxygen Delivery Method Room Air 05/12/24 08:18 BMI result Body Mass Index 30.3 Const Other: General: Comfortable CVS: RRR Respiratory: clear to auscultation bilaterally. Good respiratory effort Skin: No lesions seen MSK: No tenderness of upper extremities. Good range of motion of upper extremities and lower extremities. She has slight swelling of bilateral ankles. Tender bilateral ankles and MTPs. Synovitis bilateral MTPs right worse than left.. No dactylitis. Assessment & Plan Assessment & Plan (1) Psoriatic arthritis: Comment: Uncontrolled on current regimen. She is off of leflunomide. Transaminitis has improved off of leflunomide on recent labs from 05/03/2024. Rheumatology history: Diagnosis of psoriatic arthritis sine psoriasis 2016. HLA B27 positive. Presenting with oligoarthritis. Methotrexate started 2015. High dose methotrexate and subcutaneous with preservatives causes tinnitus. Humira started 2015 changed to weekly 2019 to present. Leflunomide was added 2023 and discontinued due to feeling unwell, dizziness and transaminitis. Code(s): L40.50 - Arthropathic psoriasis, unspecified Category: Medical Plan: Recheck labs in 1 month for drug monitoring including liver function panel. Plan to send CATRACHO Kimble to replace Humira once liver function normalizes Prednisone course prescribed Continue Humira subcutaneous weekly Continue methotrexate 15 mg once weekly subcutaneous injection Continue folic acid 2 mg daily Return to clinic in 3 months (2) Transaminitis: Comment: See above Code(s): R74.01 - Elevation of levels of liver transaminase levels Category: Medical Plan: See above (3) Other watermaster (current) drug therapy: Code(s): Z79.899 - Other [facility] (current[facility] drug therapy Category: Medical Plan: See above Orders: Orders Liver Panel 1 Month R74.01 - Elevation of levels of liver transaminase levels Complete Blood Count Auto Diff 1 Month Z79.60 - laborer [employer] (current) use of unspecified immunomodulators and immunosuppressants Creatinine 1 Month Z79.60 - detention (current) use of unspecified immunomodulators and immunosuppressants Erythrocyte Sedimentation Rate 1 Month Z79.899 - Other watermaster (current) drug therapy C Reactive Protein 1 Month Z79.899 - [facility] ([facility] drug therapy Medications: New methotrexate sodium (PF) 15 mg (0.6 mL) IM QWEEK 4 mL 1RF prednisone Take 4 tablets daily 5 days, 3 tablets daily 5 days, 2 tablets daily 5 days, 1 tablet daily 5 days then stop. Take prednisone with food. 5 mg PO DIRECTED 50 tabs 0RF Changed From adalimumab (Humira(CF)) 40 mg subcut QWEEK To adalimumab (Humira(CF)) PA needed. Continuity of treatment. 40 mg (0.4 mL) subcut QWEEK 4 ea 1RF Coding Level of Care Code Est Pt Level 4 (76415) Complex EM visit Add On G2211 Diagnoses Psoriatic arthritis L40.50 Transaminitis R74.01 Other watermaster (current) drug therapy Z79.892
[2024-05-12 08:18] VITALS: BP 130/88; PULSE 70; O2SAT 99; BMI 30.3
--- OUTSIDE RECORDS SUMMARY | 2024-05-12 08:19 | XMS_ITS ---
Author Organization [facility] Address [address] [place] [address] Care Team Providers Care Supervisor Assembly Room Name Role Phone Kayla Casarez MD Primary Care Provider UnavaCami Rollins Unavailable [phone] REASON FOR VISIT appt Encounters Encounter Location Date Provider Diagnosis [address] [address] 04/28/2024 Cami Murray Plan Of Treatment Next Appt Details Provider Name:Sabine hancock, 06/09/2024 10:15:00 AM, [address] [place] [address], [phone], Progress Notes * Rozina BONILLA ADOB:[birth year] (63 yo F)Acc No.[id number]:04/28/2024 Patient:?Rozina BONILLA :1960???Age:63 Y???Sex:Female Address:[address] [place], [place], [address] * true * Date:? Generated for Printi ng/Favivianag/eTransmitting on:?05/12/2024 08:19 AM EST
--- OUTSIDE RECORDS SUMMARY | 2024-05-12 08:19 | XMS_ITS ---
[facility] Organization [facility] Address [address] [place] [address] Care Team Providers Care Electronic Typesetting Machine Operator Name Role Phone Hermelindo SABA, Kayla Primary Care Provider UnavaCami Rollins Unavailable [phone] Encounters Encounter Location Date Provider Diagnosis [address] [address] 04/28/2024 Cami Murray Plan Of Treatment Next Appt Details Provider Name:Sabine hancock, 06/09/2024 10:15:00 AM, [address] [place] [address], [address], Progress Notes * Rozina BONILLA ADOB:[birth year] (63 yo F)Acc No.[id number]:04/28/2024 Progress Notes Patient:?Rozina BONILLA Provider:?Cami Murray DPM :1960???Age:63 Y???Sex:Female D ate:04/28/2024 Address:[address], [place] Pcp:Kayla Casarez MD Subjective: * Chief Complaints: [...] DPM Date:?0 04/28/2024 Generated for Nessa gallegos/Reji/Justyn on:?05/12/2024 08:19 AM EST
--- OUTSIDE RECORDS SUMMARY | 2024-05-12 08:19 | XMS_ITS | Patient Health Record ---
Author Organization [facility] Address [address] [facility] [place] [address] [place] [address] Care Team Providers Care Fire Alarm Inspector Name Role Phone Kayla Casarez MD Primary Care Provider Cami Biswas Unavailable [phone] Chidi Contreras Unavailable [phone] Allergies Allergen (clinical drug ingredient) Drug/Non Drug [...] W/U Status Risk Notes Problem Plantar wart (75310002) Plantar wart (B07.0) Active confirmed Problem 10719534 Other chronic pain (G89.29) Active confirmed Problem 522070866 Psoriatic arthritis (L40.50) Active confirmed Vital Signs Blood pressure diastolic 70 mm Hg 02/18/2024 Height 66 in 02/18/2024 Blood pressure systolic 124 mm Hg 02/18/2024 Weight 185 lbs 02/18/2024 BMI 29.86 kg/m2 02/18/2024 Procedures Procedure Date Ordered Date Performed Result Body Sit e 57885-Bvhw Destruction, 1-14 02/18/2024 N/A Encounters Encounter Location Date Provider Diagnosis [address] [address] 05/14/2023 Chidi Contreras Other viral warts B07.8 ; Pain in left foot M79.672 ; Pain in right foot M79.671 ; Eccrine poroma of foot, 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 ; Psoriatic arthritis L40.50 ; Pain in right ankle and joints of right foot M25.571 ; Pain in left ankle and joints of left foot M25.572 and Other chronic pain G89.[address] [address] 08/13/2023 ChidiZeng Other viral warts B07.8 ; Pain in left foot M79.672 ; Pain in right foot M79.671 ; Eccrine poroma of foot, 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 ; Psoriatic arthritis L40.50 ; Pain in right ankle and joints of right foot M25.571 ; Pain in left ankle and joints of left foot M25.572 and Other chronic pain G89.[address] [address] 11/12/2023 Chidi Contreras Other viral warts B07.8 ; Pain in left foot M79.672 ; Pain in right foot M79.671 ; Eccrine poroma of foot, 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 ; Psoriatic arthritis L40.50 ; Pain in right ankle and joints of right foot M25.571 ; Pain in left ankle and joints of left foot M25.572 and Other chronic pain G89.[address] [facility] [address] 02/18/2024 Cami Trevor Right foot pain M79.671 and Plantar wart B07.[address] [address] 05/14/[address] [address] [facility]/18/[facility] [address] 02/18/2024 Cami Murray [address] [address] 04/28/2024 Cami Trevor Assessments Encounter Date Diagnosis [...] X ray : Foot, right 3V 04/22/2018 22320-Euav Destruction, 1-14 03/31/2019 05546-Sqqj Destruction, 1-14 02/18/2024 Next Appt Details Provider Name:Sabine hancock, 06/09/2024 10:15:00 AM, [address] [place], [address], Insurance Providers Payer Name Payer Address Payer Phone Subscriber Number Group Number Insured Name Patient Relationship to Insured Coverage Start Date Coverage End Date [facility] [address] [place] [id number] Rozina Bonilla Self - patient is the insured Medical (General) History Medical History History ICD Code Arthritis thyroid Psoriatic arthritis Surgical History Surgery Date(Month/Year) umbilical hernia rt hernia
--- OUTSIDE RECORDS SUMMARY | 2024-05-12 08:19 | XMS_ITS ---
Author Organization [facility] Address [address] [place] [address] Care Team Providers Care Supervisor Polishing Name Role Phone Kayla Casarez MD Primary Care Provider Unavai Cami Gonzalez Unavailable [phone] REASON FOR VISIT Self Pay Encounters Encounter Location Date Provider Diagnosis [address] [address] 02/18/2024 Cami Murray Plan Of Treatment Next Appt Details Provider Name:Sabine hancock, 06/09/2024 10:15:00 AM, [address] [place] [address], [phone], Progress Notes * Rozina BONILLA ADOB:[birth year] (63 yo F)Acc No.[id number]:02/18/2024 Patient:?Rozina BONILLA :1960???Age:63 Y???Sex:Female Address:[address], [place], [address] * true * Date:? Generated for Printi ng/Favivianag/eTransmitting on:?05/12/2024 08:19 AM EST
--- OUTSIDE RECORDS SUMMARY | 2024-05-12 08:19 | XMS_ITS | Clinical Summary ---
Author Organization [facility] Address [address] [place] [address] Care Team Providers Care Manager Software Development Name Role Phone Unavailable Primary Care Provider [...]
== END 2024-05-12 08:40 | disposition home or self-care (01) ==
PROVIDERS: PCP Internal Medicine; Visit Provider Internal Medicine Rheumatology
DX: L40.50 Arthropathic psoriasis, unspecified (principal); R74.01 Elevation of levels of liver transaminase levels; Z79.899 Other long term (current) drug therapy
CPT/HCPCS: 99214

== ENCOUNTER 2024-06-16 09:24 | Outpatient (REF) | payer OTHER, SELFPAY ==
[2024-06-16 09:53] LABS: MANUAL DIFF FLAG NO
[2024-06-16 10:45] LABS: Eosinophils Absolute Auto 0.1 X10*3/uL (0.0-0.4); Eosinophils Percent Auto 3.3 % (0-4); Hematocrit 40.2 % (37.0-47.0); Hemoglobin 13.1 g/dl (12.0-16.0); Imm Gran Abs Auto 0.01 X10*3/uL (0.00-0.03); Imm Gran Pct Auto 0.2 % (0.0-0.4); Lymphocytes Absolute Auto 2.1 X10*3/uL (1.2-4.9); Lymphocytes Percent Auto 50.8 % (20-40); Mean Corpuscular HGB Conc 32.6 g/dl (31.0-35.0); Mean Corpuscular Hemoglobin 32.7 pg (27.0-33.0); Mean Corpuscular Volume 100.2 fL (80.0-98.0); Mean Platelet Volume 11.4 fL (9.4-12.3); Monocytes Absolute Auto 0.5 X10*3/uL (0.1-1.2); Monocytes Percent Auto 11.2 % (2-11); Neutrophils Absolute Auto 1.4 x10*3/uL (2.0-8.3); Neutrophils Percent Auto 33.5 % (45-73); Platelet Count 218 X10*3/uL (160-400); Red Blood Count 4.01 X10*6/uL (4.20-5.50); Red Cell Distribution Width 13.2 % (11.0-16.0); White Blood Count 4.2 X10*3/uL (4.8-10.8)
[2024-06-16 11:27] LABS: Erythrocyte Sedimentation Rate 13 MM/HR (0-20)
[2024-06-16 11:57] LABS: Alanine Aminotransferase 74 U/L (0-31); Albumin Level 4.2 g/dL (3.5-5.0); Alkaline Phosphatase 68 U/L (39-117); Aspartate Amino Transferase 44 U/L (5-31); Bilirubin Direct 0.2 mg/dL (0.0-0.5); Bilirubin Total 0.6 mg/dL (0.0-1.0); C Reactive Protein < 0.10 mg/dL (< or = 0.50); Estimated Glomerular Filt Rate > 60; Total Protein 6.8 g/dL (6.5-8.0)
== END 2024-06-16 09:25 | disposition home or self-care (01) ==
LOC: HO.LAB 09:24
PROVIDERS: PCP Internal Medicine; Visit Provider Internal Medicine Rheumatology
DX: R74.01 Elevation of levels of liver transaminase levels (principal); Z79.899 Other long term (current) drug therapy; Z79.60 Long term (current) use of unspecified immunomodulators and immunosuppressants
CPT/HCPCS: 36415; 80076; 82565; 85025; 85652; 86140

== ENCOUNTER 2024-08-11 09:44 | Outpatient (AMB) | payer OTHER, SELFPAY ==
[2024-08-11 09:59] VITALS: BP 122/62; PULSE 68; O2SAT 98; BMI 30.2
--- NOTE | 2024-08-11 09:59 | MHC.OFFVIS ---
Vital Signs 08/11/24 09:59 Height 5 ft 6 in Weight 187 lb 6.287 oz BMI 30.2 BP 122/62 Blood Pressure Location Lt brachial Position Sitting Pulse 68 Pulse Source Pulse Oximeter Pulse Oximetry (%) 98 Oxygen Delivery Method Room Air Intake Visit Reasons: 3 mo follow up Intake Note: Pt present today for Psoriatic arthritis. Allergies Penicillins Allergy (Mild, Verified 08/11/24 10:03) Hives HPI HPI 3 mo follow up: Details: Prednisone reduced ankle pain. She experienced facial flushing at around 2 weeks of prednisone course. Generalized morning stiffness is 1 hour. She continues to have stiffness in her ankle and feet. Increase pain with prolonged standing. [facility] Medical History Psoriatic arthritis Physical Exam Vital Signs: Last Vital Signs Pulse 68 08/11/24 09:59 BP 122/62 08/11/24 09:59 Pulse Ox 98 08/11/24 09:59 Oxygen Delivery Method Room Air 08/11/24 09:59 BMI result Body Mass Index 30.2 Const Other: General: Comfortable CVS: RRR Respiratory: clear to auscultation bilaterally. Good respiratory effort Skin: No lesions seen MSK: No tenderness of upper extremities. Normal range of motion of upper extremities and lower extremities. She has slight swelling of bilateral ankles. Tender bilateral ankles and MTPs. Synovitis bilateral MTPs. No dactylitis. Assessment & Plan Assessment & Plan (1) Psoriatic arthritis: Comment: Uncontrolled on current regimen. She is off of leflunomide with continued transaminitis on most recent labs 05/2024. She had liver ultrasound ordered by PCP, which patient reports revealed hepatic steatosis. Rheumatology history: Diagnosis of psoriatic arthritis sine psoriasis 2016. HLA B27 positive. Presenting with oligoarthritis. Methotrexate started 2015. High dose methotrexate and subcutaneous with preservatives causes tinnitus. Humira started 2015 changed to weekly 2019 to present. Leflunomide was added 2023 and discontinued due to feeling unwell, dizziness and transaminitis. Code(s): L40.50 - Arthropathic psoriasis, unspecified Category: Medical Plan: [place] Prednisone course prescribed Continue Humira subcutaneous weekly Continue methotrexate 15 mg once weekly subcutaneous injection Continue folic acid 2 mg daily Labs for disease and drug monitoring ordered. If she continues to have transaminitis, she will need further workup with GI referral. I will then decrease methotrexate dose. Plan to process Shyanne CATRACHO after lab results are back. Shyanne we will replace Lucia. Return to clinic in 3 months (2) Transaminitis: Comment: See above Code(s): R74.01 - Elevation of levels of liver transaminase levels Category: Medical Plan: See above (3) Other jewel stringer (current) drug therapy: Code(s): Z79.899 - Other jewel stringer (current) drug therapy Category: Medical Plan: See above Orders: Orders Creatinine Today Z79.60 - book reviewer (current) use of unspecified immunomodulators and immunosuppressants Erythrocyte Sedimentation Rate Today Z79.899 - Other jewel stringer (current) drug therapy C Reactive Protein Today Z79.899 - Other intermediate (current) drug therapy Alanine Aminotransferase Today Z79.60 - [facility] (current) use of unspecified immunomodulators and immunosuppressants Aspartate Amino Transferase Today Z79.60 - book reviewer (current) use of unspecified immunomodulators and immunosuppressants Complete Blood Count Auto Diff Today Z79.60 - [facility] (current) use of unspecified immunomodulators and immunosuppressants Medications: Changed From prednisone Take 4 tablets daily 5 days, 3 tablets daily 5 days, 2 tablets daily 5 days, 1 tablet daily 5 days then stop. Take prednisone with food. 5 mg PO DIRECTED 50 tabs 0RF To prednisone Take 4 tablets daily 3 days, 3 tablets daily 3 days, 2 tablets daily 3 days, 1 tablet daily 3 days then stop. Take prednisone with food. 5 mg PO DIRECTED 50 tabs 0RF From prednisone Take 4 tablets daily 3 days, 3 tablets daily 3 days, 2 tablets daily 3 days, 1 tablet daily 3 days then stop. Take prednisone with food. 5 mg PO DIRECTED 50 tabs 0RF To prednisone Take 4 tablets daily 3 days, 3 tablets daily 3 days, 2 tablets daily 3 days, 1 tablet daily 3 days then stop. Take prednisone with food. Dispense this rx. 5 mg PO DIRECTED 30 tabs 0RF Coding Level of Care Code Est Pt Level 4 (95450) Complex EM visit Add On G2211 Diagnoses Psoriatic arthritis L40.50 Transaminitis R74.01 Other jewel stringer (current) drug therapy Z79.899
--- OUTSIDE RECORDS SUMMARY | 2024-08-11 11:02 | XMS_ITS ---
Author Organization [facility] Address [address] [place] [address] Care Team Providers Care Continuous Improvement Coach Name Role Phone Kayla Casarez MD Primary Care Provider Cami Biswas Unavailable [phone] REASON FOR VISIT BUY Pedag Viva Sport (red) #42 / L 12 Encounters Encounter Location Date Provider Diagnosis [address] [address] 06/09/2024 Cami Murray Plan Of Treatment Next Appt Details Provider Name:Sabine hancock, 09/08/2024 11:00:00 AM, [address] [place], [address], Progress Notes * Rozina BONILLA ADOB:[birth year] (63 yo F)Acc No.[id number]:06/09/2024 Patient:?Rozina BONILLA :1960???Age:63 Y???Sex:Female Address:[address], [place], [address] * true * Date:? Generated for Printi ng/Favivianag/eTransmitting on:?08/11/2024 11:02 AM EDT
--- OUTSIDE RECORDS SUMMARY | 2024-08-11 11:02 | XMS_ITS ---
Author Organization [facility] Address [address] [place] [address] Care Team Providers Care Risk Adjustment Specialist Name Role Phone Kayla Casarez MD Primary Care Provider UnavaCami Rollins Unavailable [phone] REASON FOR VISIT BUY Wart Stick Encounters Encounter Location Date Provider Diagnosis [address] [address] 06/09/2024 Cami Murray Plan Of Treatment Next Appt Details Provider Name:Sabine hancock, 09/08/2024 11:00:00 AM, [address] [place], [address], Progress Notes * Rozina BONILLA ADOB:[birth year] (63 yo F)Acc No.[id number]:06/09/2024 Patient:?Rozina BONILLA :1960???Age:63 Y???Sex:Female Address:[address] [place], [place], [address] * true * Date:? Generated for Printi ng/Faxing/eTransmitting on:?08/11/2024 11:02 AM EDT
--- OUTSIDE RECORDS SUMMARY | 2024-08-11 11:02 | XMS_ITS ---
Author [facility] Address [address] [facility] [place] [address] Care Team Providers Care Heading And Priming Tool Setter Name Role Phone Kayla Casarez MD Primary Care Provider Cami Biswas Unavailable [phone] Sabine Toledo Unavailable [phone] Allergies Allergen (clinical drug ingredient) Drug/Non Drug Allergy documented on EMR Reaction Allergy Type Onset Date Status amoxicillin Amoxicillin hives Drug Allergy Act turner shrimp allergenic extract Shrimp (Diagnostic) Unknown Drug Allergy Active REASON FOR VISIT Wart(s) Medications Medication SIG (Take, Route, Frequency, Duration) Notes Start Date End Date Status Levothyroxine Sodium 50 MCG 1 tablet on an empty stomach in the morning Orally Once a day for 30 day(s) Active Night Splint AFO - L1930 as directed 04/22/2018 Not-Taking Methotrexate Sodium 15 MG as directed Orally Active Humira 10 MG/0.2ML as directed Subcutaneous Active Social History Tobacco Use: Social History [...] an other tobacco user? No Vital Signs Height 66 in 06/09/2024 Weight 185 lbs 06/09/2024 BMI 29.86 kg/m2 06/09/2024 Blood pressure systolic 120 mm Hg 06/10/19 25 Blood pressure diastolic 70 mm Hg 025 Encounters Encounter Location Date Provider Diagnosis [facility] [address] [place] [address] 06/09/2024 Sabine Paris Right foot pain M79.671 and Plantar wart B07.0 Assessments Encounter Date Diagnosis (ICD Code) Assessment Notes Treatment Notes Treatment Clinical Notes Section Notes 06/09/2024 Right foot pain (ICD-10 - M79.671) 06/09/2024 Plantar wart (ICD-10 - B07.0) Plan Of Treatment Next Appt Details Follow Up: 3 Months, Reason: Provider Name:Sabine hancock, 09/08/2024 11:00:00 AM, [address] [place] [address], [address], Procedure Notes * Category Sub-Category Detail Notes Wart Treatment Procedure Verruca, as desc ribed in exam, were debrided to pin- point bleeding margins with sterile 15 surgical blade, silver nitrate chemocautery applied, recomm. immune-boosting meds such as zinc, recomm. follow up with topical chemosurgical agents, recomm. Wartstick 40 percent Salicylic acid application under occlusion as directed Progress Notes * Rozina BONILLA ADOB:[birth year] (63 yo F)Acc No.[id number]:06/09/2024 Progress Notes Patient:?Rozina BONILLA Provider:?Sabine Toledo DPM :1960???Age:63 Y???Sex:Female D ate:06/09/2024 Address:[address] [place], [place] [id number] Pcp:Kayla Casarez MD Subjective: * Chief Complaints: [...] Vitals:?Ht: 66, Wt:185, BMI: 29.86, Shoe size:10-11, BP:120/70mm Hg, Wt-k.92 kg. * Examination: ???Dermatologic: ?VERRUCA:?CONT TO, Reveals [...] recomm. follow up with topical chemosurgical agents, recomm. Wartstick 40 percent Salicylic acid application under occlusion as directed.? * Procedure Codes:?21214 Wart Destruction, 1-14 * Follow Up:?3 Months * Images: * Sign off status: Completed true * Provider:?Sabine Toledo, DPM Date:? Generated for Printi ng/Reji/eTransmitting on:?08/11/2024 11:02 AM EDT History and Physical Notes * HPI (History [...]
--- OUTSIDE RECORDS SUMMARY | 2024-08-11 11:02 | XMS_ITS | Clinical Summary ---
Author Organization [facility] Address [address] [place] [address] Care Team Providers Care Hook Tender Name Role Phone Unavailable Primary Care Provider [...]
--- OUTSIDE RECORDS SUMMARY | 2024-08-11 11:02 | XMS_ITS | Patient Health Record ---
Author [facility] Address [address] [facility] [place] [address] Care Team Providers Care Hot Mill Observer Name Role Phone Kayla Casarez MD Primary Care Provider Cami Biswas Unavailable [phone] Chidi Contreras Unavailable [phone] Sabine Toledo Unavailable [phone] Allergies Allergen (clinical drug ingredient) Drug/Non Drug [...] Humira 10 MG/0.2ML as directed Subcutaneous Active Immunizations Vaccine Route Administration Date Status [...] W/U Status Risk Notes Problem Plantar wart (65458244) Plantar wart (B07.0) Active confirmed Problem 15972918 Other chronic pain (G89.29) Active confirmed Problem 961369337 Psoriatic arthritis (L40.50) Active confirmed Vital Signs Blood pressure diastolic 70 mm Hg 06/09/2024 Height 66 in 06/09/2024 Blood pressure systolic 120 mm Hg 06/09/2024 Weight 185 lbs 06/09/2024 BMI 29.86 kg/m2 06/09/2024 Procedures Procedure Date Ordered Date Performed Result Body Sit e 53731-Uqpw Destruction, 1-14 02/18/2024 N/A Encounters Encounter Location Date Provider Diagnosis [address] [address] 08/13/2023 Chidi Contreras Other viral warts B07.8 ; Pain in left foot M79.672 ; Pain in right foot M79.671 ; Eccrine poroma of foot, 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 ; Psoriatic arthritis L40.50 ; Pain in right ankle and joints of right foot M25.571 ; Pain in left ankle and joints of left foot M25.572 and Other chronic pain G89.[address] [address] 11/12/2023 Chidi Contreras Other viral warts B07.8 ; Pain in left foot M79.672 ; Pain in right foot M79.671 ; Eccrine poroma of foot, 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 ; Psoriatic arthritis L40.50 ; Pain in right ankle and joints of right foot M25.571 ; Pain in left ankle and joints of left foot M25.572 and Other chronic pain G89.[address] [address] 02/18/2024 Cami Murray Right foot pain M79.671 and Plantar wart B07.[address] [address] 06/09/2024 Sabine Toledo Right foot pain M79.671 and Plantar wart B07.0 [facility] [address] [place] [address] 02/18/2024 Cami [facility] [address] 04/28/2024 Camideysi Murray [facility] [address] 06/09/2024 Cami Murray [facility] [address] 06/09/2024 Cami Murray Assessments Encounter Date Diagnosis (ICD Code) Assessment Notes Treatment Notes Treatment Clinical Notes Section Notes 08/13/2023 Other viral warts (ICD-10 - B07.8) 08/13/2023 Pain in left foot (ICD-10 - M79.672) 11/12/2023 Other viral warts (ICD-10 - B07.8) 02/18/2024 Right foot pain (ICD-10 - M79.671) 06/09/2024 Right foot pain (ICD-10 - M79.671) 02/18/2024 Plantar wart (ICD-10 - B07.0) 06/09/2024 Plantar wart (ICD-10 - B07.0) 11/12/2023 Pain in left foot (ICD-10 - M79.672) 08/13/2023 Pain in right foot (ICD-10 - M79.671) 11/12/2023 Pain in right foot (ICD-10 - M79.671) 08/13/2023 Eccrine poroma of foot, 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) 08/13/2023 Psoriatic arthritis (ICD-10 - L40.50) 11/12/2023 Eccrine poroma of foot, 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) 08/13/2023 Pain in right ankle and joints of right foot (ICD-10 - M25.571) 11/12/2023 Psoriatic arthritis (ICD-10 - L40.50) 11/12/2023 Pain in right ankle and joints of right foot (ICD-10 - M25.571) 08/13/2023 Pain in left ankle and joints of left foot (ICD-10 - M25.572) 08/13/2023 Other chronic pain (ICD-10 - G89.29) 11/12/2023 Pain in left ankle and joints of left foot (ICD-10 - M25.572) 11/12/2023 Other chronic pain (ICD-10 - G89.29) Plan Of Treatment Pending Test Test Name Order Date X ray : Foot, left 3V 04/22/2018 X ray : Foot, right 3V 04/22/2018 34656-Yfvw Destruction, 1-14 03/31/2019 34357-Eepb Destruction, 1-14 02/18/2024 Next Appt Details Provider Name:Sabine hancock, 09/08/2024 11:00:00 AM, [address] [place] [address], [phone], Insurance Providers Payer Name Payer Address Payer Phone Subscriber Number Group Number Insured Name Patient Relationship to Insured Coverage Start Date Coverage End Date [facility] [address] [place] [address] [id number] Rozina Bonilla Self - patient is the insured Medical (General) History Medical History History ICD Code Arthritis thyroid Psoriatic arthritis Surgical History Surgery Date(Month/Year) umbilical hernia rt hernia
== END 2024-08-11 10:43 | disposition home or self-care (01) ==
LOC: HO.RHES 09:45
PROVIDERS: PCP Internal Medicine; Visit Provider Internal Medicine Rheumatology
DX: L40.50 Arthropathic psoriasis, unspecified (principal); R74.01 Elevation of levels of liver transaminase levels; Z79.899 Other long term (current) drug therapy
CPT/HCPCS: 99214

== ENCOUNTER 2024-08-11 09:44 | Outpatient (REF) | payer OTHER, SELFPAY ==
--- OUTSIDE RECORDS SUMMARY | 2024-08-11 12:16 | XMS_ITS | Clinical Summary ---
Author Organization [facility] Address [address] [place] [address] Care Team Providers Care Nursing Specialist Name Role Phone Unavailable Primary Care Provider [...]
[2024-08-11 18:07] LABS: MANUAL DIFF FLAG NO
[2024-08-11 18:18] LABS: Basophils Percent Auto 0.6 % (0-2); Eosinophils Absolute Auto 0.1 X10*3/uL (0.0-0.4); Eosinophils Percent Auto 1.9 % (0-4); Hematocrit 41.4 % (37.0-47.0); Hemoglobin 13.8 g/dl (12.0-16.0); Imm Gran Abs Auto 0.01 X10*3/uL (0.00-0.03); Imm Gran Pct Auto 0.2 % (0.0-0.4); Lymphocytes Absolute Auto 2.4 X10*3/uL (1.2-4.9); Lymphocytes Percent Auto 44.8 % (20-40); Mean Corpuscular HGB Conc 33.3 g/dl (31.0-35.0); Mean Corpuscular Hemoglobin 32.9 pg (27.0-33.0); Mean Corpuscular Volume 98.6 fL (80.0-98.0); Mean Platelet Volume 11.6 fL (9.4-12.3); Monocytes Absolute Auto 0.5 X10*3/uL (0.1-1.2); Monocytes Percent Auto 9.6 % (2-11); Neutrophils Absolute Auto 2.3 x10*3/uL (2.0-8.3); Neutrophils Percent Auto 42.9 % (45-73); Platelet Count 229 X10*3/uL (160-400); Red Cell Distribution Width 13.9 % (11.0-16.0); White Blood Count 5.3 X10*3/uL (4.8-10.8)
[2024-08-11 18:29] LABS: Alanine Aminotransferase 62 U/L (0-31); Aspartate Amino Transferase 47 U/L (5-31); C Reactive Protein < 0.10 mg/dL (< or = 0.50); Estimated Glomerular Filt Rate > 60
[2024-08-11 19:12] LABS: Erythrocyte Sedimentation Rate 11 MM/HR (0-20)
== END 2024-08-11 09:45 | disposition home or self-care (01) ==
LOC: HO.HKASLDS 09:44
PROVIDERS: PCP Internal Medicine; Visit Provider Internal Medicine Rheumatology
DX: L40.50 Arthropathic psoriasis, unspecified (principal); R74.01 Elevation of levels of liver transaminase levels; Z79.60 Long term (current) use of unspecified immunomodulators and immunosuppressants; Z79.899 Other long term (current) drug therapy
CPT/HCPCS: 36415; 82565; 84450; 84460; 85025; 85652; 86140

== ENCOUNTER 2024-09-13 06:46 | Outpatient (REF) | payer OTHER, SELFPAY ==
[2024-09-13 07:54] LABS: Alanine Aminotransferase 21 U/L (0-31); Aspartate Amino Transferase 20 U/L (5-31)
== END 2024-09-13 06:47 | disposition home or self-care (01) ==
LOC: HO.LAB 06:46
PROVIDERS: PCP Internal Medicine; Visit Provider Internal Medicine Rheumatology
DX: Z51.81 Encounter for therapeutic drug level monitoring (principal); Z79.60 Long term (current) use of unspecified immunomodulators and immunosuppressants
CPT/HCPCS: 36415; 84450; 84460

== ENCOUNTER 2024-09-15 16:07 | Outpatient (REF) | payer OTHER, SELFPAY ==
--- NOTE | ~2024-09-15 | XR_ITS ---
EXAMINATION: XR SACROILIAC JOINTS CLINICAL INFORMATION: L40.50 - Arthropathic psoriasis, unspecified COMPARISON: None available. TECHNIQUE: 3 views of the sacroiliac joints FINDINGS: There is questionable subtle irregularity of the left SI joint. Right SI joint is unremarkable. XR/XR sacroiliac joint min 3V IMPRESSION: Possible subtle irregularity of the left SI joint. If the patient is symptomatic, consider MRI SI joints without contrast. Electronically signed by: Zelalem Avelar MD 09/15/2024 06:06 PM EDT
--- NOTE | ~2024-09-15 | XR_ITS ---
EXAMINATION: XR LUMBOSACRAL SPINE CLINICAL INFORMATION: L40.50 - Arthropathic psoriasis, unspecified COMPARISON: None available. TECHNIQUE: Three views of the lumbosacral spine. FINDINGS: There are 5 nonrib-bearing lumbar segments. Vertebral body height and alignment is preserved. There is moderate disc space narrowing at L4-5 and mild narrowing at L5-S1. There is also mild facet sclerosis. XR/XR lumbar spine 2-3V IMPRESSION: Degenerative disc disease L4-5 greater than L5-S1. Electronically signed by: Zelalem Avelar MD 09/15/2024 06:03 PM EDT
--- OUTSIDE RECORDS SUMMARY | 2024-09-15 18:41 | XMS_ITS | Patient Health Record ---
[facility] derek Erie Address [address] [facility] [place] [address] Care Team Providers Care Maintenance Porter Name Role Phone Kayla Casarez MD Primary Care Provider Cami Biswas Unavailable [phone] Chidi Contreras Unavailable [phone] Sabine Toledo Unavailable [phone] Allergies Allergen (clinical drug ingredient) Drug/Non Drug [...] AFO - L1930 as directed 04/22/2018 Not-Taking Immunizations Vaccine Route Administration Date Status Comme nts COVID-19 Moderna Vaccine Unknown 11/22/2020 Administered 1st 04/09/2020 2st 05/08/2020 Influenza Unknown 12/22/2020 Administered Influenza Unknown 11/23/2023 Administered Social History Tobacco Use: Social History [...] W/U Status Risk Notes Problem Plantar wart (20315583) Plantar wart (B07.0) Active confirmed Problem Chronic back pain (210792276) Other chronic pain (G89.29) Active confirmed Problem Psoriatic arthritis (778826361) Psoriatic arthritis (L40.50) Active confirmed Vital Signs Blood pressure diastolic 70 mm Hg 09/08/2024 Height 66 in 09/08/2024 Blood pressure systolic 120 mm Hg 09/08/2024 Weight 183 lbs 09/08/2024 BMI 29.53 kg/m2 09/08/2024 Procedures Procedure Date Ordered Date Performed Result Body Sit e 99201-Vvly Destruction, 1-14 02/18/2024 N/A Encounters Encounter Location Date Provider Diagnosis [address] [address] 11/12/2023 Chidi Contreras Other viral warts B07.8 ; Pain in left foot M79.672 ; Pain in right foot M79.671 ; Eccrine poroma of foot, 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 ; Psoriatic arthritis L40.50 ; Pain in right ankle and joints of right foot M25.571 ; Pain in left ankle and joints of left foot M25.572 and Other chronic pain G89.[address] [address] 02/18/2024 Cami Murray Right foot pain M79.671 and Plantar wart B07.[address] [address] 06/09/2024 Sabine Perica Right foot pain M79.671 and Plantar wart B07.[address] [address] 09/08/2024 Sabine Perica Right foot pain M79.671 and Plantar wart B07.[address] [address] 02/18/2024 Cami Murray [address] [address] 04/28/2024 [facility] [place] [address] [place] [address] 06/09/2024 [facility] [place] [address] [place] [address] 06/09/2024 Cami Murray Assessments Encounter Date Diagnosis (ICD Code) Assessment Notes Treatment Notes Treatment Clinical Notes Section Notes 11/12/2023 Other viral warts (ICD-10 - B07.8) 02/18/2024 Right foot pain (ICD-10 - M79.671) 06/09/2024 Right foot pain (ICD-10 - M79.671) 09/08/2024 Right foot pain (ICD-10 - M79.671) 02/18/2024 Plantar wart (ICD-10 - B07.0) 09/08/2024 Plantar wart (ICD-10 - B07.0) 06/09/2024 Plantar [...] X ray : Foot, right 3V 04/22/2018 75705-Kvvf Destruction, 1-14 03/31/2019 87400-Qcij Destruction, 1-14 02/18/2024 Next Appt Details Provider Name:Sabine hancock, 12/08/2024 11:15:00 AM, [address] [place], [address], Insurance Providers Payer Name Payer Address Payer Phone Subscriber Number Group Number Insured Name Patient Relationship to Insured Coverage Start Date Coverage End Date [facility] [address] [place] [address] [phone] [id number] Rozina Bonilla Self - patient is the insured Medical (General) History Medical History History ICD Code Arthritis thyroid Psoriatic arthritis Surgical History Surgery Date(Month/Year) umbilical hernia rt hernia
== END 2024-09-15 16:08 | disposition home or self-care (01) ==
LOC: HO.XRAY 16:07
PROVIDERS: PCP Internal Medicine; Visit Provider Internal Medicine Rheumatology
DX: L40.50 Arthropathic psoriasis, unspecified (principal); M54.50 Low back pain, unspecified; Z79.899 Other long term (current) drug therapy
CPT/HCPCS: 72100; 72202

== ENCOUNTER → 2024-09-15 16:12 | Outpatient (BNV) | payer OTHER, SELFPAY | PROVIDERS: PCP Internal Medicine; Visit Provider Radiology Diagnostic Radiology | DX: M51.379 Other intervertebral disc degeneration, lumbosacral region without mention of lumbar back pain or lower extremity pain (principal) | CPT/HCPCS: 72100; 72202 ==

== ENCOUNTER 2024-10-08 10:11 | Outpatient (REF) | payer OTHER, SELFPAY ==
--- NOTE | ~2024-10-08 | US_ITS ---
EXAMINATION: US ABDOMEN LIMITED WITH LIVER ELASTOGRAPHY HISTORY: R74.01 - Elevation of levels of liver transaminase levels TECHNIQUE: Real-time grayscale ultrasound imaging of the right upper quadrant was performed and images were reviewed. COMPARISON: There are no prior studies available for comparison. FINDINGS: Liver: The right lobe of the liver measures 13.0 cm in size. The left lobe of the liver measures 8.8 cm in size. The liver demonstrates normal homogeneous echotexture. There are cysts in the left lobe measuring up to 1.8 cm in size. No intrahepatic biliary ductal dilatation is identified. There is normal hepatopedal flow in the portal vein. Ultrasound elastography of the liver was performed with 10 separate measurements of the liver parenchyma with the patient in the supine position. Measurements were obtained approximately 2 cm below Prem's capsule and perpendicular to the capsule. The median shear wave velocity is 1.51 m/s. The interquartile range/median (IQR/median) is 0.12. Gallbladder and biliary tree: Multiple polyps are noted in the gallbladder measuring up to 4 mm in size. The gallbladder is otherwise unremarkable, without evidence of calculi, wall thickening, or pericholecystic fluid. There is no sonographic Pugh sign. The common bile duct is normal in caliber measuring 5 mm. Right Kidney: The right kidney measures 10.7 cm in length and demonstrates mild pelvic fullness. The right kidney is otherwise unremarkable, without evidence of masses, hydronephrosis, or calculi. Pancreas: The pancreatic head, neck, and body are unremarkable. The pancreatic tail is obscured by bowel gas. Abdominal aorta and inferior vena cava: The visualized portions of the abdominal aorta and inferior vena cava are normal in caliber. There is no free fluid in the right upper quadrant. US/US abdomen fuentes w elastography IMPRESSION: 1. Hepatic cysts in the left lobe measuring up to 1.8 cm in size. 2. Gallbladder polyps measuring up to 4 mm in size. Follow-up is suggested. The median shear wave velocity in the liver is 1.51 m/s, corresponding to a median liver stiffness of 6.84 kPa. The IQR/median value is 0.12. This is indicative of a quality data set. Findings are indicative of a low elastography value which rules out advanced chronic liver disease in asymptomatic patients. REFERENCE: Society of Radiologists in Ultrasound Liver Stiffness Thresholds (2020): LIVER STIFFNESS THRESHOLDS: *Shear wave velocity less than 1.3 m/s (Liver Stiffness equal or less than 5 kPa): High probability of being normal. *Shear wave velocity less than 1.7 m/s (Liver Stiffness less than 9 kPa): In the absence of other known clinical signs, rules out compensated advanced chronic liver disease. *Shear wave velocity between 1.7-2.1 m/s (Liver Stiffness 9-13 kPa): Suggestive of compensated advanced chronic liver disease but need further test for confirmation. *Shear wave velocity between 2.1-2.4 m/s (Liver Stiffness 13-17 kPa): Rules in compensated advanced chronic liver disease. *Shear wave velocity greater than 2.4 m/s (Liver Stiffness over 17 kPa): Suggestive of clinically significant portal hypertension. QUALITY OF DATA SET: *IQR/Median value equal or less than 0.15 implies a quality data set. *IQR/Median value over 0.15 implies a poor quality data set. SIGNIFICANT CHANGE FROM PRIOR EXAM: Significant change if liver stiffness measurement is 10% or greater from prior exam. OTHER CONSIDERATIONS: The stage of liver fibrosis may be overestimated in the setting of acute hepatitis, liver inflammation, elevated liver function tests, hepatic vascular congestion, obstructive cholestasis, non-fasting state, and infiltrative diseases such as amyloidosis and lymphoma. In some patients with NAFLD, the liver stiffness thresholds for compensated advanced chronic liver disease may be lower. In causes other than viral hepatitis and NAFLD, liver stiffness thresholds are not well established. Electronically signed by: Bryan Flor MD 10/08/2024 11:00 AM EDT
--- OUTSIDE RECORDS SUMMARY | 2024-10-08 10:32 | XMS_ITS | Encounter Summary ---
Author Organization [facility] Address [address] [facility] [address] [place] [address] Phone Care Team Providers Care Hair Sample Matcher Name Role Phone Kayla Casarez MD Primary Care Provider Encounter Details Date Type Department Care Team (Late Contact Info) Description 02/26/2021 Procedure Pass [address] [address] Social History Tobacco Use Types Packs/Day Years Used Date Smoking Tobacco: Never Smokeless Tobacco: Never Alcohol Use Standard Drinks/Week Comments Not Currently 0 (1 standard drink = 0.6 oz pur e alcohol) Comments No Sex and Gender Information Value Date Recorded Sex Assigned at Not on file Legal Sex Female 6:28 PM EST Gender Identity Not on file Sexual Orientation Not on file documented as of this encounter Plan of Treatment Upcoming Encounters Date Type Department Care Team ([facility] Contact Info) Description 10/20/2024 1:15 PM EDT Appointment [address] [address] Kayla Casarez MD [address] [place] [address] [email or web address] 10/14/2025 10:00 AM EDT Office Visit [facility] [address] [place] [address] Paulina Torrez MD [address] [facility] Carlos. [address] [place] [address] [email or web address] documented as of this encounter Visit Diagnoses Not on filedocumented in this encounter Additional Health Concerns Infection Onset Date Last Indicated Resolved Time CoV-Exposed Comment:Recent close contact documented in the COVID-19 PCR/PRO order 03/19/2021 03/21/2021 04/03/2021 1:[address] documented as of this encounter Care Teams Hair Sample Matcher Relationship Specialty Start Date End Date Kayla Casarez MD [address] [place] [address] [email or web address] PCP - General 09/21/13 documented as of this encounter Additional Source Comments The information contained in this document represents components of the legal health record. It is not the complete legal health record.[facility]
--- OUTSIDE RECORDS SUMMARY | 2024-10-08 10:32 | XMS_ITS | Clinical Summary ---
Author Organization [facility] Address [address] [place] [address] Care Team Providers Care Internal Revenue Agent Name Role Phone Unavailable Primary Care Provider [...] - 2023-2 5 season) 2023 Influenza (#1) 2024 RSV (1 - 1-dose 75+ series) 07/25/2035 [...]
== END 2024-10-08 10:12 | disposition home or self-care (01) ==
LOC: HO.US 10:11
PROVIDERS: PCP Internal Medicine; Visit Provider Internal Medicine Rheumatology
DX: R74.01 Elevation of levels of liver transaminase levels (principal)
CPT/HCPCS: 76705; 76981

== ENCOUNTER → 2024-10-08 10:13 | Outpatient (BNV) | payer OTHER, SELFPAY | PROVIDERS: PCP Internal Medicine; Visit Provider Radiology Diagnostic Radiology | DX: K76.89 Other specified diseases of liver (principal) | CPT/HCPCS: 76705 ==

== ENCOUNTER 2024-10-20 08:05 | Outpatient (REF) | payer OTHER, SELFPAY ==
--- OUTSIDE RECORDS SUMMARY | 2024-04-28 08:30 | XMS_ITS ---
Author Organization [facility] Address [address] [place] [address] Care Team Providers Care Snake Charmer Name Role Phone Hermelindo SABA, Kayla Primary Care Provider JaelynvaCami Rollins Unavailable [phone] Encounters Encounter Location Date Provider Diagnosis [address] [address] 04/28/2024 Cami Murray Plan Of Treatment Next Appt Details Provider Name:Sabine hancock, 12/08/2024 11:15:00 AM, [address] [place] [address], [address], Progress Notes * Rozina BONILLA ADOB:[birth year] (64 yo F)Acc No.[id number]:04/28/2024 Progress Notes Patient: Rozina ARNOLD Refugio Provider: Mary Beth Murray DPM :1960 A ge:63 Y S ex:Female Date:04/28/2024 [address] [place] Pcp:Kayla Casarez MD Subjective: * Chief Complaints: * * Medical History: Objective: * Vitals: Assessment: Plan: * Treatment: * Images: * The named appointment provid er may or may not be the originator of this progress note, and it is not deemed complete until electronically signed by the appointment provider. Sign off status: Pending * Provider: Mary Beth Murray, NING Date: 0 04/28/2024 Generated for Nessa gallegos/Reji/Justyn on: 0 10/20/2024 08:08 AM EDT
--- OUTSIDE RECORDS SUMMARY | 2024-10-20 08:08 | XMS_ITS | Encounter Summary ---
Author Organization [facility] Address [address] [facility] [address] [place] [address] Phone Care Team Providers Care Prop And Effects Designer Name Role Phone Kayla Casarez MD Primary Care Provider Encounter Details Date Type Department Care Team (Late Contact Info) Description 02/26/2021 Procedure Pass [address] [address] Social History Tobacco Use Types Packs/Day Years [...] Upcoming Encounters Date Type Department Care Team ([facility] [address] Contact Info) Description 10/20/2024 1:15 PM EDT Appointment [address] [address] Kayla Casarez MD [address] [place] [address] [email or web address] 10/14/2025 10:00 AM EDT Office Visit [facility] [address] [place] [address] Paulina Torrez MD 15 [facility] Carlos. [address] [place] [address] [email or web address] documented as of this encounter Visit Diagnoses Not on filedocumented in this encounter Additional Health Concerns Infection Onset Date Last Indicated Resolved Time CoV-Exposed Comment:Recent close contact documented in the COVID-19 PCR/PRO order 03/19/2021 03/21/2021 04/03/2021 1:[address] documented as of this encounter Care Teams Prop And Effects Designer Relationship Specialty Start Date End Date Kayla Casarez MD [address] [place] [address] [email or web address] PCP - General 09/21/13 documented as of this encounter Additional Source Comments The information contained in this document represents components of the legal health record. It is not the complete legal health record.[facility]
--- OUTSIDE RECORDS SUMMARY | 2024-10-20 08:09 | XMS_ITS | Clinical Summary ---
Author Organization [facility] Address [address] [place] [address] Care Team Providers Care Machine Adjuster Leader Name Role Phone Unavailable Primary Care Provider [...] - 1-dose 75+ series) 07/25/2035 HPV Vaccine (No Doses Required) Completed Hep A Aged Out No longer eligi [...]
[2024-10-20 08:53] LABS: Baso%MD 1.0 %; Eos%MD 3.0 %; Hematocrit 41.2 % (37.0-47.0); Hemoglobin 13.6 g/dl (12.0-16.0); IG%MD 0.2 %; Lymph%MD 57.8 %; Mean Corpuscular HGB Conc 33.0 g/dl (31.0-35.0); Mean Corpuscular Hemoglobin 32.5 pg (27.0-33.0); Mean Corpuscular Volume 98.6 fL (80.0-98.0); Mono%MD 9.7 %; NRBC Abs Auto 0.000 X10*3/uL (0.0-0.012); NRBC Pct Auto 0.0 /100WBC (0.0-0.2); Neut%MD 28.3 %; Platelet Count 209 X10*3/uL (160-400); Red Blood Count 4.18 X10*6/uL (4.20-5.50); White Blood Count 6.3 X10*3/uL (4.8-10.8)
[2024-10-20 09:18] LABS: Alanine Aminotransferase 24 U/L (0-31); Aspartate Amino Transferase 24 U/L (5-31); Estimated Glomerular Filt Rate > 60
[2024-10-20 09:28] LABS: Atypical Lymph Absolute Manual 0.5 x10*3/uL; Atypical Lymphs Percent Manual 8 % (0-6); Basophils Abs Manual 0.2 X10*3/uL (0.0-0.2); Basophils Percent Manual 3 % (0-2); Eosinophils Absolute Manual 0.1 X10*3/uL (0.0-0.4); Eosinophils Percent Manual 2 % (0-4); Lymphocytes Absolute Manual 3.1 X10*3/uL (1.2-4.9); Lymphocytes Percent Manual 49 % (20-40); Monocytes Absolute Manual 0.3 X10*3/uL (0.1-1.2); Monocytes Percent Manual 5 % (2-11); Neutrophils Percent Manual 33 % (45-73)
[2024-10-20 09:30] LABS: Large Platelet PRESENT; RBC Morphology NORMAL
[2024-10-20 09:33] LABS: Band Neutrophils Percent 0 % (3-5); Neutrophils Absolute Manual 2.1 X10*3/uL (2.0-8.3)
== END 2024-10-20 08:06 | disposition home or self-care (01) ==
LOC: HO.LAB 08:05
PROVIDERS: PCP Internal Medicine; Visit Provider Internal Medicine Rheumatology
DX: L40.50 Arthropathic psoriasis, unspecified (principal)
CPT/HCPCS: 36415; 82565; 84450; 84460; 85007; 85027; 85652; 86140

== ENCOUNTER 2024-11-10 09:53 | Outpatient (AMB) | payer OTHER, SELFPAY ==
--- NOTE | 2024-11-10 10:26 | MHC.OFFVIS ---
Vital Signs 11/10/24 10:27 Height 5 ft 6 in Weight 185 lb 13.595 oz BMI 30.0 BP 120/82 Blood Pressure Location Rt brachial Position Sitting Pulse 67 Pulse Source Pulse Oximeter Pulse Oximetry (%) 97 Oxygen Delivery Method Room Air Intake Visit Reasons: 3 month Intake Note: Pt present today for Psoriatic arthritis. Accompanied by: self Allergies Penicillins Allergy (Mild, Verified 11/10/24 10:28) Hives HPI HPI 3 month: Details: Still having pain in pubic symphysis area. Reduced pain and stiffness in feet. She is able to walk. Prednisone course helped alleviate symptoms. She is taking ibuprofen 400 mg once or twice a day PRN pain Injection site reaction with redness and pruritis lasts atleast 3 days. MS 30 min. Improved stiffness in hands. Has more stregnth. [facility] Medical History Psoriatic arthritis Physical Exam Vital Signs: Last Vital Signs Pulse 67 11/10/24 10:27 BP 120/82 11/10/24 10:27 Pulse Ox 97 11/10/24 10:27 Oxygen Delivery Method Room Air 11/10/24 10:27 BMI result Body Mass Index 30.0 Const Other: General: Comfortable CVS: RRR Respiratory: clear to auscultation bilaterally. Good respiratory effort Skin: No lesions seen MSK: No tenderness of upper extremities. Normal range of motion of upper extremities and lower extremities. Right ankle mild synovitis with tenderness on palpation. Bilateral MTP tenderness. No dactylitis. Assessment & Plan Assessment & Plan (1) Psoriatic arthritis: Comment: Uncontrolled on current regimen. She is off of leflunomide with continued transaminitis on most recent labs 05/2024. She had liver ultrasound ordered by PCP, which patient reports revealed hepatic steatosis. Rheumatology history: Diagnosis of psoriatic arthritis sine psoriasis 2015. HLA B27 positive. Presenting with oligoarthritis. Methotrexate started 2015. High dose methotrexate and subcutaneous with preservatives causes tinnitus. Humira started 2015 changed to weekly 2019 to present. Leflunomide was added 2023 and discontinued due to feeling unwell, dizziness and transaminitis. After discontinuing methotrexate transaminitis resolved. Enbrel started September 2024. Code(s): L40.50 - Arthropathic psoriasis, unspecified Category: Medical Plan: Prednisone course prescribed Continue Enbrel 50 mg subcutaneous injection once weekly. She will ice area 15 minutes before and after injection. She will use hydrocortisone 1% applied to erythematous up to twice a day Labs for drug monitoring on high-risk medication up-to-date Return to clinic in 3 months (2) Transaminitis: Comment: Resolved. Due to methotrexate. Code(s): R74.01 - Elevation of levels of liver transaminase levels Category: Medical Plan: See above (3) Other fci (current) drug therapy: Code(s): Z79.899 - Other adjunct faculty for medical terminology (current) drug therapy Category: Medical Plan: See above Medications: New prednisone Take 4 tablets daily 5 days, 3 tablets daily 5 days, 2 tablets daily 5 days, 1 tablet daily 5 days then stop. Take prednisone with food. 5 mg PO DIRECTED 50 tabs 0RF Changed From etanercept (Enbrel SureClick) PA needed. 50 mg subcut QWEEK 4 mL 2RF To etanercept (Enbrel SureClick) 50 mg subcut QWEEK 4 mL 2RF Discontinued folic acid Discontinued Reason: Doctor's Order 2 mg (2 x 1 mg) PO DAILY 180 tabs 3RF methotrexate sodium (PF) Reduced dose due to elevated liver enzymes Discontinued Reason: Doctor's Order 12.5 mg (0.5 mL) IM QWEEK 2 mL 2RF prednisone Take 4 tablets daily 7 days, 3 tablets daily 7 days, 2 tablets daily 7 days, 1 tablet daily 7 days then stop. Take prednisone with food. Discontinued Reason: Doctor's Order 5 mg PO DIRECTED 70 tabs 0RF prednisone see taper instructions: take 3 tablets for 7 days, then take 2 tablets for 7 days, then take 1 tablet for 7 days then stop. Discontinued Reason: Doctor's Order 5 mg PO DIRECTED 42 tabs 0RF Coding Level of Care Code Est Pt Level 4 (95759) Complex EM visit Add On G2211 Diagnoses Psoriatic arthritis L40.50 Transaminitis R74.01 Other adjunct faculty for medical terminology (current) drug therapy Z79.899
[2024-11-10 10:27] VITALS: BP 120/82; PULSE 67; O2SAT 97
--- OUTSIDE RECORDS SUMMARY | 2024-11-10 10:45 | XMS_ITS | Clinical Summary ---
Author Organization [facility] Address [address] [place] [address] Care Team Providers Care Military Communications Specialist Name Role Phone Unavailable Primary Care [...]
--- OUTSIDE RECORDS SUMMARY | 2024-11-10 10:45 | XMS_ITS | Patient Health Record ---
Author [facility] derek Crisfield Address [address] [facility] [place] [address] Care Team Providers Care Chief Technician X Ray Name Role Phone Kayla Casarez MD Primary Care Provider Cami Biswas Unavailable [phone] Chidi Contreras Unavailable [phone] Sabine Toledo Unavailable [phone] Allergies Allergen (clinical drug ingredient) Drug/Non Drug [...] stomach in the morning Orally Once a day; Duration: 30 day(s) Active Methotrexate Sodium 15 MG as directed Orally Active Night Splint AFO - L1930 as directed 04/22/2018 Not-Taking Immunizations Vaccine Route Administration Date Status Comme nts Influenza Unknown 12/22/2020 Administered Influenza Unknown 11/23/2023 Administered COVID-19 Moderna Vaccine Unknown 11/22/2020 Administered 1st 04/09/2020 2st 05/08/2020 Social History Tobacco Use: Social History Observation [...] W/U Status Risk Notes Problem Plantar wart (00263668) Plantar wart (B07.0) Active confirmed Problem Other chronic pain (G89.29) Active confirmed Problem Psoriatic arthritis (866593479) Psoriatic arthritis (L40.50) Active confirmed Vital Signs Blood pressure diastolic 70 mm Hg 09/08/2024 Height 66 in 09/08/2024 Blood pressure systolic 120 mm Hg 09/08/2024 Weight 183 lbs 09/08/2024 BMI 29.53 kg/m2 09/08/2024 Procedures Procedure Date Ordered Date Performed Result Body Sit e 73753-Vvns Destruction, -02/18/2024 N/A Encounters Encounter Location Date Provider Diagnosis [address] [address] 11/12/2023 Chidi Contreras Other viral warts B07.8 ; Pain in left foot M79.672 ; Pain in right foot M79.671 ; Eccrine poroma of foot, 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 ; Psoriatic arthritis L40.50 ; Pain in right ankle and joints of right foot M25.571 ; Pain in left ankle and joints of left foot M25.572 and Other chronic pain G89.[address] [address] 02/18/2024 Cami Murray Right foot pain M79.671 and Plantar wart B07.[address] [address] 06/09/2024 Sabine Perica Right foot pain M79.671 and Plantar wart B07.[address] [address] 09/08/2024 Sabine Perica Right foot pain M79.671 and Plantar wart B07.[address] [address] 02/18/2024 Cami Murray [address] [address] 04/28/2024 Cami Murray [facility] [address] [place] [address] 06/09/2024 Cami Murray [facility] [address] [place] [address] 06/09/2024 Cami Murray Assessments Encounter Date Diagnosis [...] X ray : Foot, right 3V 04/22/2018 96904-Vudx Destruction, 1-14 03/31/2019 82542-Waac Destruction, 1-14 02/18/2024 Next Appt Details Provider Name:Sabine hancock, 12/08/2024 11:15:00 AM, [address] [place], [address], Insurance Providers Payer Name Payer Address Payer Phone Subscriber Number Group Number Insured Name Patient Relationship to Insured Coverage Start Date Coverage End Date [facility] [address] [place] [address] [phone] [id number] Rozina Bonilla Self - patient is the insured Medical (General) History Medical History History ICD Code Arthritis thyroid Psoriatic arthritis Surgical History Surgery Date(Month/Year) umbilical hernia rt hernia
== END 2024-11-10 11:01 | disposition home or self-care (01) ==
LOC: HO.RHES 09:54
PROVIDERS: PCP Internal Medicine; Visit Provider Internal Medicine Rheumatology
DX: L40.50 Arthropathic psoriasis, unspecified (principal); R74.01 Elevation of levels of liver transaminase levels; Z79.899 Other long term (current) drug therapy
CPT/HCPCS: 99214; G2211

== ENCOUNTER 2025-01-19 09:47 | Outpatient (AMB) | payer OTHER, SELFPAY ==
--- OUTSIDE RECORDS SUMMARY | 2024-04-28 08:30 | XMS_ITS ---
Author Organization [facility] Address [address] [place] [address] Care Team Providers Care Electronics Lead Name Role Phone Hermelindo SABA, Kayla Primary Care Provider JaelynvaCami Rollins Unavailable [phone] Encounters Encounter Location Date Provider Diagnosis [address] [address] 04/28/2024 Cami Murray Plan Of Treatment Next Appt Details Provider Name:Sabine hancock, 03/23/2025 09:15:00 AM, [address] [place] [address], [address], Progress Notes * Rozina BONILLA ADOB:[birth year] (64 yo F)Acc No.[id number]:04/28/2024 Progress Notes Patient: Rozina ARNOLD Provider: Mary Beth Murray DPM :1960 A ge:63 Y S ex:Female Date:04/28/2024 Address:[address], [place] Pcp:Kayla Casarez MD Subjective: * Chief Complaints: [...] 0 04/28/2024 Generated for Nessa gallegos/Reji/Justyn on: 1 11:41 AM EDT
--- NOTE | 2025-01-19 09:52 | A.OFFVIS_ITS ---
Vital Signs 01/19/25 09:59 Height 5 ft 6 in Weight 183 lb BMI 29.5 BP 138/66 Blood Pressure Location Rt brachial Position Sitting Pulse 66 Pulse Source Pulse Oximeter Pulse Oximetry (%) 99 Oxygen Delivery Method Room Air Intake Visit Reasons: lft Intake Note: New pt for initial eval of abn labs (LFTS) CC: Pt denies any GI sx. Referred for abnormal labs only. Pt reports having colonoscopy through [facility] last year. Accompanied by: Self / Same As Patient Allergies Penicillins Allergy (Mild, Verified 01/19/25 09:52) Hives HPI HPI lft: Details: 64-year-old female with past medical history of hypothyroidism, psoriasis take arthritis, transaminitis is here today for initial consultation. Patient was diagnosed with psoriasis Arthritis in 2015. Patient was on methotrexate and Humira. In 2023 patient was started on Leflunomide, however be sites slowly climbing her liver enzymes patient was having multiple GI symptoms like diarrhea abdominal pain, bloating, fogginess, feeling tired. Medication was stopped, however her liver enzymes continue to be going up. Previously patient was diagnosed with fatty liver by her PCP. Mechanical Systems Engineer stopped methotrexate and Humira and she started taking Enbrel. Her liver enzymes normalize. Patient had liver ultrasound with elastography that showed increased echogenicity and elastography ruled out chronic advanced liver disease. We did FIB 4 scoring when reviewing her recent blood work last 1 done in September. Score is 1.50 fibrosis 2-3. Patient denies any abdominal pain or discomfort. She is denying any GI concerning symptoms. [facility] Medical History (Updated 01/19/25 @ 11:19 by Leslee Adkins, [facility]) Hypothyroidism (acquired) Psoriatic arthritis Review of Systems Const Denies weight gain and Denies weight loss ENT Reports no additional complaints, Denies dysphagia and Denies odynophagia Card Reports no additional complaints Resp Reports no additional complaints GI Denies abdominal pain, Denies belching, Denies melena, Denies bloating, Denies change in bowel habits, Denies dysphagia, Denies excessive flatus, Denies dyspepsia, Denies heartburn, Denies diarrhea, Denies loose stools, Denies nausea, Denies odynophagia and Denies vomiting Musc Reports no additional complaints Neuro Reports no additional complaints Psych Reports no additional complaints Endo Reports no additional complaints Physical Exam Vital Signs: Last Vital Signs Pulse 66 10/29/25 09:59 BP 138/66 01/19/25 09:59 Pulse Ox 99 01/19/25 09:59 Oxygen Delivery Method Room Air 01/19/25 09:59 BMI result Body Mass Index 29.5 Const General: healthy appearing, no acute distress and well developed Nutritional Appearance: well nourished Orientation/consciousness: patient oriented x3 Resp Effort & Inspection: normal respiratory effort, able to speak in complete sentences, no tracheal deviation and symmetric chest movement Auscultation: clear to auscultation bilaterally Cardio Rate: regular rate GI Inspection: Yes normal to inspection and No distended Palpation (GI): Soft to palpation, not firm, nontender and No hepatosplenomegaly present Auscultation: normal bowel sounds General: Yes no CVA tenderness Back/Spine/Pelvis Back: no CVA tenderness Skin General skin exam: elasticity normal, turgor normal and dry skin Neuro General: patient oriented x3 Psych Appearance: grossly normal Mental Status: mental status grossly normal Results Reviewed Results Reviewed: 1.50?points Further investigation needed Approximate fibrosis stage: Ronald 2-3 (Darryn et al 2006) Assessment & Plan Assessment & Plan (1) Transaminitis: Code(s): R74.01 - Elevation of levels of liver transaminase levels Category: Medical (2) Non-alcoholic fatty liver disease: Code(s): K76.0 - Fatty (change of) liver, not elsewhere classified Plan We will repeat liver panel in 6 months before patient's next appointment as well as liver fibrosis. Her levels are normal now. It mild increased echogenicity seen on ultrasound with elastography ruling out chronic advanced liver disease. Most likely fatty liver. Discussed with patient weight loss and diet. Low-fat low salt, low carb and high-protein diet recommended. Diet recommendation for fatty liver given to patient. Liver enzymes elevated possibly due to medications. Fib 4 fibrosis 2-3. Patient will return in 6 months. She will call us if she will have any GI concerning symptoms. She is agreeable to this plan and verbalizes understanding of instructions. She was given the opportunity to ask questions and all questions answered. Thank you for allowing me to participate in her care Orders: Orders Liver Panel 6 Months R74.01 - Elevation of levels of liver transaminase levels Liver Fibrosis Pnl 6 Months K76.0 - Fatty (change of) liver, not elsewhere classified Coding Level of Care Code New Pt Level 4 (94123) Diagnoses Transaminitis R74.01 Non-alcoholic fatty liver disease K76.0 Time Spent (min) 45 Comment 30 minutes spent with patient and additional 15 minutes spent reviewing her records
[2025-01-19 09:59] VITALS: BP 138/66; PULSE 66; O2SAT 99; BMI 29.5
--- OUTSIDE RECORDS SUMMARY | 2025-01-19 11:41 | XMS_ITS | Encounter Summary ---
Author Organization [facility] Address [address] [facility] [address] [place] [address] Phone Care Team Providers Care Brake Lining Finisher Name Role Phone Kayla Casarez MD Primary Care Provider Encounter Details Date Type Department Care Team (Late st Contact Info) Description 04/07/2019 Ancillary Orders Virtual Department [address] [place] [address] Charmaine Fernández MD [address] [place] [address] Visit for screening mammogram Social History Tobacco Use Types Packs/Day Years Used Date Smoking Tobacco: Never Smokeless Tobacco: Never Comments No Sex and Gender Information Value Date Recorded Sex Assigned at Not on file Legal Sex Female 6:28 PM EST Gender Identity Not on file Sexual Orientation Not on file documented as of this encounter Plan of Treatment Upcoming Encounters Date Type Department Care Team (Late st Contact Info) Description 10/14/2025 10:00 AM EDT Office Visit [facility] [place] [facility] [address] [place] [address] Paulina Torrez MD 15 [facility] [address] [place] [address] [email or web address] documented as of this encounter Results * BI MAMMOGRAM SCREENING WITH TOMOSYNTHESIS WITH CAD (BILATERAL) (10/20/2019 12:42 PM EDT) Anatomical Region Laterality Modality Breast Left, Breast Right, Breast Bilateral Bila teral Mammography 10/20/2019 2:42 PM EDT Impressions 10/20/2019 2:47 PM EDT No mammographic signs of malignancy. Annual screening is recommended. BI-RADS CATEGORY 1 - NEGATIVE DENSITY: The breast tissue is heterogeneously dense, which could obscure a lesion on mammography. POS - [id number] Narrative 10/20/2019 2:47 PM EDT Bilateral mammography is performed in conjunction with computed aided detection. 3-D tomography along with 2-D C view imaging was also performed. Comparison made to previous dated as far back as 08/14/2011 and as recent as 10/14/2018. No suspicious masses, areas of architectural distortion or suspicious microcalcifications. Charmaine Fernández MD IMG MG EXAMS Final Result documented in this encounter Visit Diagnoses Diagnosis Visit for screening mammogram Visit for screening mammogram documented in this encounter Additional Health Concerns Infection Onset Date Last Indicated Resolved Time CoV-Risk 08/28/2019 08/30/2019 09/11/2019 1:23 AM EDT CoV-Exposed Comment:Recent close contact documented in the COVID-19 PCR/PRO order 04/19/2020 04/19/2020 05/03/2020 1:[address] CoV-Exposed Comment:Recent close contact documented in the COVID-19 PCR/PRO order 03/19/2021 03/21/2021 04/03/2021 1:[address] documented as of this encounter Care Teams Brake Lining Finisher Relationship Specialty Start Date End Date Kayla Casarez MD [address] [place] [address] [email or web address] PCP - General 09/21/13 documented as of this encounter Additional Source Comments The information contained in this document represents components of the legal health record. It is not the complete legal health record.[facility]
--- OUTSIDE RECORDS SUMMARY | 2025-01-19 11:41 | XMS_ITS | Encounter Summary ---
Author Organization [facility] Address [address] [place] [address] Phone Care Team Providers Care Manager Recruitment Name Role Phone Kayla Casarez MD Primary Care Provider Encounter Details Date Type Department Care Team (Late st Contact Info) Description 02/26/2021 Procedure Pass [facility], [address] [address] Social History Tobacco Use Types Packs/Day Years [...] Description 10/14/2025 10:00 AM EDT Office Visit [facility] [place] [facility] [address] [facility] [address] [place] [address] Paulina Torrez MD [address] [facility] [address] [place] [address] [email or web address] documented as of this encounter Visit Diagnoses Not on filedocumented in this encounter Additional Health Concerns Infection Onset Date Last Indicated Resolved Time CoV-Exposed Comment:Recent close contact documented in the COVID-19 PCR/PRO order 03/19/2021 03/21/2021 04/03/2021 1:[address] documented as of this encounter Care Teams Manager Recruitment Relationship Specialty Start Date End Date Kayla Casarez MD [address] [place] [address] [email or web address] PCP - General 09/21/13 documented as of this encounter Additional Source Comments The information contained in this document represents components of the legal health record. It is not the complete legal health record.[facility]
--- OUTSIDE RECORDS SUMMARY | 2025-01-19 11:41 | XMS_ITS | Encounter Summary ---
Author Organization [facility] Address [facility] [employer] [address] [address] Phone Care Team Providers Care Invoice Machine Operator Name Role Phone Kayla Casarez MD Primary Care Provider Encounter Details Date Type Department Care Team (Late st Contact Info) Description 01/22/2023 Transcribe Orders [facility] Laboratory [address] [place] [address] Kayla Casarez MD 15 [place] [address] [email or web address] Routine general medical examination at a health care facility (Primary Dx); Hypothyroidism, unspecified type; Low vitamin D level Social History Tobacco Use Types Packs/Day Years Used Date Smoking Tobacco: Never Smokeless Tobacco: Never Alcohol Use Standard Drinks/Week Comments Not Currently 0 (1 standard drink = 0.6 oz pur e alcohol) Education Answer Date Recorded Are you interested in more education? Not on viktor e 07/19/2022 Are you concerned about learning? Not on file 07/19/2022 No 07/19/2022 No 07/19/2022 Digital Access Answer Date Recorded No 08/14/2022 No 08/14/2022 Reliable internet access at home? Not on file 08/14/2022 Device with a working camera? Not on file Comments No Sex and Gender Information Value Date Recorded Sex Assigned at Not on file Legal Sex Female 6:28 PM EST Gender Identity Not on file Sexual Orientation Not on file documented as of this encounter Plan of Treatment Upcoming Encounters Date Type Department Care Team (Late st Contact Info) Description 10/14/2025 10:00 AM EDT Office Visit [facility] [place] [address] [place] [address] Paulina Torrez MD 15 [facility] [address] [place] [address] [email or web address] documented as of this encounter Results * 25-OH vitamin D (01/22/2023 9:00 AM EDT) 25 OH VIT D (TOTAL) 32 30 - 60 ng/mL [facility] Blood 01/22/2023 9:00 AM EDT 01/22/2023 9:11 AM EDT Kayla Casarez MD LAB BLOOD ORDERABLES Final Result [address] [address] * TSH with reflex (01/22/2023 9:00 AM EDT) TSH 2.49 0.27 - 4.20 uIU/mL [facility] Blood 01/22/2023 9:00 AM EDT 01/22/2023 9:11 AM EDT Kayla Casarez MD LAB BLOOD ORDERABLES Final Result [address] [address] * (ABNORMAL) Lipid panel (01/22/2023 9:00 AM EDT) HDL 92 mg/dL [facility] Comment: Interpretation <40 mg/dL: Low HDL cholesterol (major risk factor for CHD) Greater than or equal to 60 mg/dL: High HDL cholesterol ( negative risk factor for CHD) HDL - cholesterol is affected by a number of factors, e.g. smoking, excerise, hormones, sex and age. CHOLESTEROL 235 0 - 240 mg/dL [facility] TRIGLYCERIDES 88 30 - 160 mg/dL [facility] LDL 125 50 - 129 mg/dL [facility] Comment: LDL levels in terms of risk for coronary heart disease: <100 mg/dL: Optimal 100-129 mg/dL: Near or above optimal 130-159 mg/dL: Borderline high 160-189 mg/dL: High >190 mg/dL: Very High CARDIAC RISK RATIO 2.6(L) 3.3 - 4.4 C [facility] Blood 01/22/2023 9:00 AM EDT 01/22/2023 9:11 AM EDT us Kayla Casarez MD LAB BLOOD ORDERABLES Final Result Performing Organization Address City/State/[facility] Co de Phone Number [facility] [address] [place] [address] documented in this encounter Visit Diagnoses Diagnosis Routine general medical examination at a health care facility- Primary Hypothyroidism, unspecified type Low vitamin D level documented in this encounter Care Teams Invoice Machine Operator Relationship Specialty Start Date End Date Kayla Casarez MD [address] [place] [id number] [email or web address] PCP - General 09/21/13 documented as of this encounter Additional Source Comments The information contained in this document represents components of the legal health record. It is not the complete legal health record.[facility]
--- OUTSIDE RECORDS SUMMARY | 2025-01-19 11:41 | XMS_ITS | Encounter Summary ---
Author Organization [facility] Address [address] [place] [address] Phone Care Team Providers Care Collect On Delivery Clerk Name Role Phone Kayla Casarez MD Primary Care Provider Encounter Details Date Type Department Care Team (Late st Contact Info) Description 07/16/2017 Ancillary Orders [facility], X-Ray - [address] [address] Kayla Casarez MD [address] [place], [place] [phone] [email or web address] Pain Social History Tobacco Use Types Packs/Day Years [...] Description 10/14/2025 10:00 AM EDT Office Visit [facility] [place] [facility] [address] [facility] [address] [place], [place] [phone] Paulina Torrez MD [address] [facility] [address] [place] [address] documented as of this encounter Results * XR KNEE 4 OR MORE VIEWS (LEFT) (07/16/2017 11:11 AM EDT) Anatomical Region Laterality Modality Knee Left Radiographic Kathleen ging 07/16/2017 11:5 1 AM EDT Impressions 07/16/2017 11:53 AM EDT Large joint effusion. Decision for further imaging should be made on a clinical basis. POS - [id number] Narrative 07/16/2017 11:53 AM EDT HISTORY: Pain for three months, no trauma. COMPARISON: None. FINDINGS: Four views. Joint spaces appear well-maintained. Minimal spurring. No evidence of erosions. No fractures or dislocations. No suspicious lytic or blastic lesions within the bones. There is evidence of a large joint effusion. Procedure Note Everette Miller MD - 07/16/2017 HISTORY: Pain for three months, no trauma. COMPARISON: None. FINDINGS: Four views. Joint spaces appear well-maintained. Minimal spurring. No evidence oferosions. No fractures or dislocations. No suspicious lytic or blasticlesions within the bones. There is evidence of a large joint effusion. IMPRESSION: Large joint effusion. Decision for further imaging should be made on aclinical basis. POS - [id number] Kayla Casarez MD IMG XR LOWER EXTREMITY Adali l Result documented in this encounter Visit Diagnoses Diagnosis Pain Generalized pain Pain Generalized pain documented in this encounter Additional Health Concerns Infection Onset Date Last Indicated Resolved Time CoV-Risk 08/28/2019 08/30/2019 09/11/2019 1:23 AM EDT CoV-Exposed Comment:Recent close contact documented in the COVID-19 PCR/PRO order 04/19/2020 04/19/2020 05/03/2020 1:[address] CoV-Exposed Comment:Recent close contact documented in the COVID-19 PCR/PRO order 03/19/2021 03/21/2021 04/03/2021 1:[address] documented as of this encounter Care Teams Collect On Delivery Clerk Relationship Specialty Start Date End Date Kayla Casarez MD [address] [place] [address] [email or web address] PCP - General 09/21/13 documented as of this encounter Additional Source Comments The information contained in this document represents components of the legal health record. It is not the complete legal health record.[facility]
--- OUTSIDE RECORDS SUMMARY | 2025-01-19 11:41 | XMS_ITS | Encounter Summary ---
Author Organization [facility] Address [address] [place] [address] Phone Care Team Providers Care Cell Reliner Name Role Phone Kayla Casarez MD Primary Care Provider Encounter Details Date Type Department Care Team (Late st Contact Info) Description 03/21/2021 Transcribe Orders Virtual Department [address] [place] [address] Kayla Casarez MD 15 [place] [address] [email or web address] Encounter for laboratory testing for COVID-19 virus (Primary Dx) Social History Tobacco Use Types Packs/Day Years [...] Encounters Date Type Department Care Team (Late Contact Info) Description 10/14/2025 10:00 AM EDT Office Visit [facility] [place] [facility] [address] [facility] [facility] [address] [place] [address] Paulina Torrez MD 15 [facility] [address] [place] [address] [email or web address] documented as of this encounter Results * COVID-19 PCR Order (03/22/2021 3:00 PM EST) COVID Testing Status In-house testing being performed [facility] Symptomatic? NO [facility] Other 03/22/2021 3:00 PM EST 03/22/2021 6:32 PM EST Kayla Casarez MD BODY FLUIDS AND STOOLS JUAN CAR[facility]OS [facility]IO Final Result [facility] [address] [place] [address] documented in this encounter Visit Diagnoses Diagnosis Encounter for laboratory testing for COVID-19 virus- Primary documented in this encounter Additional Health Concerns Infection Onset Date Last Indicated Resolved Time CoV-Exposed Comment:Recent close contact documented in the COVID-19 PCR/PRO order 03/19/2021 03/21/2021 04/03/2021 1:[address] documented as of this encounter Care Teams Cell Reliner Relationship Specialty Start Date End Date Kayla Casarez MD [address] [place] [phone] [email or web address] PCP - General 09/21/13 documented as of this encounter Additional Source Comments The information contained in this document represents components of the legal health record. It is not the complete legal health record.[facility]
--- OUTSIDE RECORDS SUMMARY | 2025-01-19 11:41 | XMS_ITS | Encounter Summary ---
Author Organization [facility] Address [address] [place] [address] Phone Care Team Providers Care Amf Mechanic Name Role Phone Kayla Casarez MD Primary Care Provider Encounter Details Date Type Department Care Team (Late st Contact Info) Description 08/18/2020 Procedure Pass [facility], Ct Scan - [facility] [address] [place] [address] Social History Tobacco Use Types Packs/Day Years [...] Description 10/14/2025 10:00 AM EDT Office Visit [facility] [address] [facility] [address] [place] [address] Paulina Torrez MD [address] [facility] [address] [place] [address] [email or web address] documented as of this encounter Visit Diagnoses Not on filedocumented in this encounter Additional Health Concerns Infection Onset Date Last Indicated Resolved Time CoV-Exposed Comment:Recent close contact documented in the COVID-19 PCR/PRO order 03/19/2021 03/21/2021 04/03/2021 1:[address] documented as of this encounter Care Teams Amf Mechanic Relationship Specialty Start Date End Date Kayla Casarez MD [address] [place] [address] [email or web address] PCP - General 09/21/13 documented as of this encounter Additional Source Comments The information contained in this document represents components of the legal health record. It is not the complete legal health record.[facility]
--- OUTSIDE RECORDS SUMMARY | 2025-01-19 11:41 | XMS_ITS | Encounter Summary ---
Author Organization [facility] Address [address] [place] [address] Phone Care Team Providers Care Cotton Weigher Name Role Phone Kayla Casarez MD Primary Care Provider [phone] Encounter Details Date Type Department Care Team (Late st Contact Info) Description 05/30/2022 Procedure Pass [facility], [address] [address] Social History Tobacco Use Types Packs/Day Years [...] Description 10/14/2025 10:00 AM EDT Office Visit [facility] [place] [facility] [address] [place] [address] Paulina Torrez MD 15 [facility] [address] [place] [address] [email or web address] documented as of this encounter Visit Diagnoses Not on filedocumented in this encounter Care Teams Cotton Weigher Relationship Specialty Start Date End Date Kayla Casraez MD [address] [place] [email or web address] PCP - General 09/21/13 documented as of this encounter Additional Source Comments The information contained in this document represents components of the legal health record. It is not the complete legal health record.[facility]
--- OUTSIDE RECORDS SUMMARY | 2025-01-19 11:41 | XMS_ITS | Encounter Summary ---
Author Organization [facility] Address [facility] [address] [facility] [address] [place] [address] Phone Care Team Providers Care Bindery Library Technical Assistant Name Role Phone Kayla Casarez MD Primary Care Provider Encounter Details Date Type Department Care Team (Late Contact Info) Description 11/27/2022 Procedure Pass [facility], [facility] [address] [place] [address] Social History Tobacco Use Types Packs/Day Years [...] Description 10/14/2025 10:00 AM EDT Office Visit [facility] [address] [facility] [address] [place] [address] Paulina Torrez MD [address] [facility] [address] [place] [address] [email or web address] documented as of this encounter Visit Diagnoses Not on filedocumented in this encounter Care Teams Bindery Library Technical Assistant Relationship Specialty Start Date End Date Kayla Casarez MD [address] [place] [address] [email or web address] PCP - General 09/21/13 documented as of this encounter Additional Source Comments The information contained in this document represents components of the legal health record. It is not the complete legal health record.[facility]
--- OUTSIDE RECORDS SUMMARY | 2025-01-19 11:41 | XMS_ITS | Encounter Summary ---
Author Organization [facility] Address [address] [place] [address] Phone Care Team Providers Care Public Health Director Name Role Phone Kayla Casarez MD Primary Care Provider Encounter Details Date Type Department Care Team (Late Contact Info) Description 03/12/2017 Transcribe Orders [facility] [address] [facility] 2nd [place] [address] Kayla Casarez MD [address] [place] [address] Inflammatory arthritis (Primary Dx); Arthralgia, unspecified joint; Hypothyroidism, unspecified type Social History Tobacco Use Types Packs/Day Years Used Date Smoking Tobacco: Never Comments No Sex and Gender Information Value Date Recorded Sex Assigned at Not on file Legal Sex Female 6:28 PM EST Gender Identity Not on file Sexual Orientation Not on file documented as of this encounter Plan of Treatment Upcoming Encounters Date Type Department Care Team (Late Contact Info) Description 10/14/2025 10:00 AM EDT Office Visit [facility] [address] [facility] [address] [place] [address] Paulina Torrez MD 15 [facility] [address] [place], [place] [id number] documented as of this encounter Results * (ABNORMAL) Lyme screen with reflex to Western blot, blood (03/12/2017 9:41 AM EST) Lyme AB IgG Negative Negative [facility] Lyme AB IgM Equivocal(A) Negative [facility] Comment:The Lyme Disease Ant ibody, Confirmation, Serum (Western Blot) has been reflexed. The results will follow. Blood 03/12/2017 9:41 AM EST 03/12/2017 9:47 AM EST Kayla Casarez MD LAB BLOOD ORDERABLES Final Result Performing Organization Address City/[facility]/ZIP Co de Phone Number [address] [address] * C-Reactive Protein (03/12/2017 9:41 AM EST) Pathologist [facility] C REACTIVE PROTEIN 0.5 0 - 0.5 mg/L [facility] Blood 03/12/2017 9:41 AM EST 03/12/2017 9:47 AM EST Kayla Casarez MD LAB BLOOD ORDERABLES Final Result Performing Organization Address City/[facility] Co de Phone Number [address] [address] * CBC (03/12/2017 9:41 AM EST) WBC 7.27 3.40 - 11.20 K/uL [facility] RBC 4.17 3.80 - 4.80 M/uL [facility] HGB 13.1 12.0 - 15.0 g/dL [facility] HCT 38.0 36.0 - 46.0 % [facility] PLT 229 130 - 400 K/uL [facility] MCV 91.1 79.0 - 98.0 [facility] MCH 31.4 27.0 - 34.8 pg [facility] MCHC 34.5 31.5 - 36.0 g/dL [facility] RDW 12.0 10.8 - 14.6 % [facility] MPV 11.2 9.4 - 12.4 [facility] NRBC 0.00 /100 WBCs [facility] ABSOLUTE NRBC 0.00 K/uL [facility] Blood 03/12/2017 9:41 AM EST 03/12/2017 9:47 AM EST Kayla Casarez MD LAB BLOOD ORDERABLES Final Result [address] [address] * Comprehensive metabolic panel (03/12/2017 9:41 AM EST) SODIUM 140 133 - 146 mmol/L [facility] POTASSIUM 4.3 3.3 - 5.1 mmol/L [facility] CHLORIDE 102 96 - 108 mmol/L [facility] CO2 26 21 - 35 mmol/L [facility] BUN 13 6 - 19 mg/dL [facility] CREATININE 0.70 0.5 - 1.5 mg/dL [facility] GLUCOSE 94 70 - 99 mg/dL [facility] ALBUMIN 4.0 3.9 - 4.8 g/dL [facility] TOTAL PROTEIN 7.3 6.5 - 8.0 g/dL [facility] CALCIUM 9.5 8.4 - 10.3 mg/dL [facility] ALKALINE PHOSPHATASE 67 39 - 117 U/L [facility] TOTAL BILIRUBIN 0.4 0 - 1.2 mg/dL [facility] AST 22 0 - 37 U/L [facility] ALT 27 0 - 40 U/L [facility] GLOBULIN 3.3 1 - 4.8 g/dL [facility] EGFR >60 60 - 1000 mL/min/1.7 3m2 [facility] Comment:Abnormal if <60. If patient is -Slovenian, multiply the result by 1.21. ANION GAP 16 10 - 20 mmol/L [facility] Blood 03/12/2017 9:41 AM EST 03/12/2017 9:47 AM EST us Kayla Casarez MD LAB BLOOD ORDERABLES Final Result [address] [place] [address] documented in this encounter Visit Diagnoses Diagnosis Inflammatory arthritis- Primary Unspecified inflammatory polyarthropathy Arthralgia, unspecified joint Hypothyroidism, unspecified type documented in this encounter Additional Health Concerns Infection Onset Date Last Indicated Resolved Time CoV-Risk 08/28/2019 08/30/2019 09/11/2019 1:23 AM EDT [facility]-Exposed Comment:Recent close contact documented in the COVID-19 PCR/PRO order 04/19/2020 04/19/2020 05/03/2020 1:[address] [facility]-Exposed Comment:Recent close contact documented in the COVID-19 PCR/PRO order 03/19/2021 03/21/2021 04/03/2021 1:[address] documented as of this encounter Care Teams Public Health Director Relationship Specialty Start Date End Date Kayla Casarez MD [address] [place] [id number] PCP - General 09/21/13 documented as of this encounter Additional Source Comments The information contained in this document represents components of the legal health record. It is not the complete legal health record.[facility]
--- OUTSIDE RECORDS SUMMARY | 2025-01-19 11:41 | XMS_ITS | Encounter Summary ---
Author Organization [facility] Address [address] [place] [address] Phone Care Team Providers Care Adjunct Psychology Instructor Name Role Phone Kayla Casarez MD Primary Care Provider Encounter Details Date Type Department Care Team (Late st Contact Info) Description 09/01/2020 Procedure Pass [facility], [facility] [address] [place] [address] Social History Tobacco Use Types Packs/Day Years [...] Description 10/14/2025 10:00 AM EDT Office Visit [facility] [address] [facility] [address] [place] [address] Paulina Torrez MD 15 [facility] [address] [place] [address] [email or web address] documented as of this encounter Visit Diagnoses Not on filedocumented in this encounter Additional Health Concerns Infection Onset Date Last Indicated Resolved Time CoV-Exposed Comment:Recent close contact documented in the COVID-19 PCR/PRO order 03/19/2021 03/21/2021 04/03/2021 1:[address] documented as of this encounter Care Teams Adjunct Psychology Instructor Relationship Specialty Start Date End Date Kayla Casarez MD [address] [place] [address] [email or web address] PCP - General 09/21/13 documented as of this encounter Additional Source Comments The information contained in this document represents components of the legal health record. It is not the complete legal health record.[facility]
--- OUTSIDE RECORDS SUMMARY | 2025-01-19 11:41 | XMS_ITS | Encounter Summary ---
Author Organization [facility] Address [address] [place] [address] Phone Care Team Providers Care Medical Office Administrator Name Role Phone Kayla Casarez MD Primary Care Provider Encounter Details Date Type Department Care Team (Late st Contact Info) Description 12/16/2024 Procedure Pass Non-Invasive Cardiology [address] [place] [address] Social History Tobacco Use Types Packs/Day Years [...] 10/14/2025 10:00 AM EDT Office Visit [facility] [place] [facility] [address] [place] [address] Paulina Torrez MD 15 [facility] [address] [place] [address] [email or web address] documented as of this encounter Visit Diagnoses Not on filedocumented in this encounter Care Teams Medical Office Administrator Relationship Specialty Start Date End Date Kayla Casarez MD [address] [place] [address] [email or web address] PCP - General 09/21/13 documented as of this encounter Additional Source Comments The information contained in this document represents components of the legal health record. It is not the complete legal health record.[facility]
--- OUTSIDE RECORDS SUMMARY | 2025-01-19 11:41 | XMS_ITS | Encounter Summary ---
Author Organization [facility] Address [address] [facility] [facility] [address] [place] [address] Phone Care Team Providers Care Development Team Lead Name Role Phone Kayla Casarez MD Primary Care Provider [phone] Encounter Details Date Type Department Care Team (Late st Contact Info) Description 10/08/2021 Procedure Pass [facility], [address] [address] Social History Tobacco Use Types Packs/Day Years [...] Description 10/14/2025 10:00 AM EDT Office Visit [facility] [place] Primary Care [address] [facility] [address] [place] [address] Paulina Torrez MD 15 [facility] [address] [place] [address] [email or web address] documented as of this encounter Visit Diagnoses Not on filedocumented in this encounter Care Teams Development Team Lead Relationship Specialty Start Date End Date Kayla Casarez MD [address] [place] [address] [email or web address] PCP - General 09/21/13 documented as of this encounter Additional Source Comments The information contained in this document represents components of the legal health record. It is not the complete legal health record.[facility]
--- OUTSIDE RECORDS SUMMARY | 2025-01-19 11:41 | XMS_ITS | Encounter Summary ---
Author Organization [facility] Address [address] [place] [address] Phone Care Team Providers Care Resident Care Aide Name Role Phone Kayla Casarez MD Primary Care Provider Encounter Details Date Type Department Care Team (Late Contact Info) Description 01/11/2017 Ancillary Orders [facility], X-Ray - [address] [address] Kayla Casarez MD 15 [place], [place] [id number] [email or web address] Breast screening Social History Tobacco Use Types Packs/Day Years Used Date Smoking Tobacco: Never Comments Unknown Sex and Gender Information Value Date Recorded Sex Assigned at Not on file Legal Sex Female 6:28 PM EST Gender Identity Not on file Sexual Orientation Not on file documented as of this encounter Plan of Treatment Upcoming Encounters Date Type Department Care Team (Late st Contact Info) Description 10/14/2025 10:00 AM EDT Office Visit [facility] [place] [address] [facility] [address] [place] [address] Paulina Torrez MD 15 [facility] [address] [place] [address] [email or web address] documented as of this encounter Results * BI MAMMOGRAM SCREENING WITH TOMOSYNTHESIS WITH CAD (BILATERAL) (02/12/2017 12:48 PM EST) Anatomical Region Laterality Modality Breast Left, Breast Right, Breast Bilateral Bila teral Mammography 02/12/2017 5:00 PM EST Impressions 02/12/2017 5:03 PM EST No mammographic change indicative of malignancy. Routine screening is recommended. BI-RADS CATEGORY: 2 - Benign finding. DENSITY: The breast tissue is heterogeneously dense, an appearance which lowers the sensitivity of mammography. POS - [id number] Narrative 02/12/2017 5:03 PM EST FINDINGS: Bilateral full-field digital screening mammography is obtained and read in conjunction with computer-aided detection. 3-D tomosynthesis as well as 2-D C view imaging is also performed. Comparison includes the most recent exam from 01/10/2015 and as far back as 12/27/2008. Breasts are composed of heterogeneously dense fibroglandular tissue which limits mammographic sensitivity. Bilateral nodularity is stable. No new dominant mass, suspicious microcalcifications, architectural distortion, focal skin thickening, or new asymmetry is detected. Procedure Note Jasmin Felix MD - 02/12/2017 FINDINGS: Bilateral full-field digital screening mammography is obtained and read inconjunction with computer-aided detection. 3-D tomosynthesis as well as2-D C view imaging is also performed. Comparison includes the most recentexam from 01/10/2015 and as far back as 12/27/2008. Breasts are composed of heterogeneously dense fibroglandular tissue whichlimits mammographic sensitivity. Bilateral nodularity is stable. No newdominant mass, suspicious microcalcifications, architectural distortion,focal skin thickening, or new asymmetry is detected. IMPRESSION: No mammographic change indicative of malignancy. Routine screening isrecommended. BI-RADS CATEGORY: 2 - Benign finding. DENSITY: The breast tissue is heterogeneously dense, an appearance whichlowers the sensitivity of mammography. POS - [id number] Kayla Casarez MD IMG MG EXAMS Final Resul t documented in this encounter Visit Diagnoses Diagnosis Breast screening Breast screening, unspecified Breast screening Breast screening, unspecified documented in this encounter Additional Health Concerns Infection Onset Date Last Indicated Resolved Time CoV-Risk 08/28/2019 08/30/2019 09/11/2019 1:23 AM EDT CoV-Exposed Comment:Recent close contact documented in the COVID-19 PCR/PRO order 04/19/2020 04/19/2020 05/03/2020 1:[address] CoV-Exposed Comment:Recent close contact documented in the COVID-19 PCR/PRO order 03/19/2021 03/21/2021 04/03/2021 1:[address] documented as of this encounter Care Teams Resident Care Aide Relationship Specialty Start Date End Date Kayla Casarez MD [address] [place] [address] [email or web address] PCP - General 09/21/13 documented as of this encounter Additional Source Comments The information contained in this document represents components of the legal health record. It is not the complete legal health record.[facility]
--- OUTSIDE RECORDS SUMMARY | 2025-01-19 11:41 | XMS_ITS | Encounter Summary ---
Author Organization [facility] Address [address] [place] [address] Phone Care Team Providers Care Linux Vmware Administrator Name Role Phone Kayla Casarez MD Primary Care Provider [phone] Reason for Referral * MRI/CAT Scan - Closed Specialty Diagnoses / Procedures Referred By Sonam franco Referred To Contact Radiology Diagnoses Numbness White matter disease Procedures MRI Brain CHG MRI BRAIN Greyson Delgado MD Phone: tel: fax: [email or web address] Referral ID Status Reason Start Date Expiration Date Visits Re quested Visits Authorized [id number] Closed 05/30/2022 07/29/2022 1 1 Encounter Details Date Type Department Care Team (Latest Contact Info) Description 05/30/2022 Transcribe Orders Virtual Department 30 [place] [address] Greyson Delgado MD [address] [place] [address], [address] [place] [address] [email or web address] Numbness (Primary Dx); White matter disease Social History Tobacco Use Types Packs/Day Years [...] Description 10/14/2025 10:00 AM EDT Office Visit [facility] [address] [facility] [address] [place] [address] Paulina Torrez MD 15 [facility] [address] [place] [address] [email or web address] documented as of this encounter Results * MRI BRAIN WITHOUT CONTRAST (06/22/2022 5:15 PM EDT) Anatomical Region Laterality Modality Head Magnetic Resonan ce 06/23/2022 9:04 PM EDT Impressions 06/23/2022 10:06 PM EDT No significant change in trace periventricular white matter disease since 2017, which is nonspecific but may relate to chronic small vessel disease. This degree of signal abnormality is likely clinically insignificant. Narrative 06/23/2022 10:06 PM EDT MRI BRAIN WITHOUT CONTRAST TECHNIQUE: MRI BRAIN WITHOUT CONTRAST Multi-sequence, multi-planar MRI of the brain was performed without intravenous contrast. COMPARISON: Brain MRI 01/08/2017 FINDINGS: Brain Parenchyma: There is trace scattered T2/FLAIR hyperintensity in the periventricular white matter which is nonspecific and can be seen in the setting of chronic small vessel disease. No evidence of acute infarct, mass lesion, or hemorrhage. Ventricular System and Extra-Axial Spaces: Normal. No evidence of midline shift or hydrocephalus. Extracranial Structures: Arterial flow voids in the skull base are present. Procedure Note Ismael Chambers MD - 06/23/2022 MRI BRAIN WITHOUT CONTRAST TECHNIQUE: MRI BRAIN WITHOUT CONTRAST Multi-sequence, multi-planar MRI of the brain was performed withoutintravenous contrast. COMPARISON: Brain MRI 01/08/2017 FINDINGS: Brain Parenchyma: There is trace scattered T2/FLAIR hyperintensity in theperiventricular white matter which is nonspecific and can be seen in thesetting of chronic small vessel disease. No evidence of acute infarct,mass lesion, or hemorrhage. Ventricular System and Extra-Axial Spaces: Normal. No evidence of midlineshift or hydrocephalus. Extracranial Structures: Arterial flow voids in the skull base arepresent. IMPRESSION: No significant change in trace periventricular white matter disease [id number], which is nonspecific but may relate to chronic small vessel disease.This degree of signal abnormality is likely clinically insignificant. Greyson Delgado MD IMG MR HEAD/NECK Final Resul t documented in this encounter Visit Diagnoses Diagnosis Numbness- Primary Disturbance of skin sensation White matter disease Numbness Disturbance of skin sensation White matter disease documented in this encounter Care Teams Linux Vmware Administrator Relationship Specialty Start Date End Date Kayla Casarez MD [address] [place] [id number] [email or web address] PCP - General 09/21/13 documented as of this encounter Additional Source Comments The information contained in this document represents components of the legal health record. It is not the complete legal health record.[facility]
--- OUTSIDE RECORDS SUMMARY | 2025-01-19 11:41 | XMS_ITS | Encounter Summary ---
Author Organization [facility] Address [address] [facility] [address] [place] [address] Phone Care Team Providers Care Security Analyst Name Role Phone Kayla Casarez MD Primary Care Provider Encounter Details Date Type Department Care Team (Late st Contact Info) Description 12/27/2020 Procedure Pass [facility] Endoscopy Admitting Dept Virtual Department 30 [place] [address] Social History Tobacco Use Types Packs/Day Years [...] Description 10/14/2025 10:00 AM EDT Office Visit [facility] [place] [facility] [address] [facility] [address] [place] [address] Paulina Torrez MD [address] [facility] [address] [place] [address] [email or web address] documented as of this encounter Visit Diagnoses Not on filedocumented in this encounter Additional Health Concerns Infection Onset Date Last Indicated Resolved Time CoV-Exposed Comment:Recent close contact documented in the COVID-19 PCR/PRO order 03/19/2021 03/21/2021 04/03/2021 1:[address] documented as of this encounter Care Teams Security Analyst Relationship Specialty Start Date End Date Kayla Casarez MD [address] [place] [address] [email or web address] PCP - General 09/21/13 documented as of this encounter Additional Source Comments The information contained in this document represents components of the legal health record. It is not the complete legal health record.[facility]
--- OUTSIDE RECORDS SUMMARY | 2025-01-19 11:41 | XMS_ITS | Encounter Summary ---
Author Organization [facility] Address [address] [place] [address] Phone Care Team Providers Care Orthopedic Rn Name Role Phone Kayla Casarez MD Primary Care Provider Encounter Details Date Type Department Care Team (Late Contact Info) Description 01/22/2023 Transcribe Orders [facility] Laboratory [address] [facility] 2nd [place] [address] Kayla Casarez MD 15 [place] [address] [email or web address] Social History Tobacco Use Types Packs/Day Years [...] 10/14/2025 10:00 AM EDT Office Visit [facility] [place] [facility] [address] [facility] [address] [place] [address] Paulina Torrez MD 15 [facility] [address] [place] [address] [email or web address] documented as of this encounter Visit Diagnoses Not on filedocumented in this encounter Care Teams Orthopedic Rn Relationship Specialty Start Date End Date Kayla Casarez MD 15 [place] [address] [email or web address] PCP - General 09/21/13 documented as of this encounter Additional Source Comments The information contained in this document represents components of the legal health record. It is not the complete legal health record.[facility]
--- OUTSIDE RECORDS SUMMARY | 2025-01-19 11:41 | XMS_ITS | Encounter Summary ---
Author Organization [facility] Address [address] [place] [address] Phone Care Team Providers Care Help Desk Agent Name Role Phone Kayla Casarez MD Primary Care Provider [phone] Reason for Referral * MRI/CAT Scan - Closed Specialty Diagnoses / Procedures Referred By Sonam franco Referred To Contact Radiology Diagnoses Abdominal pain, unspecified abdominal location Procedures CT Abdomen/Pelvis CHG CT SCAN,ABDOMENT AND PELVIS,W CONTRAST Kayla Casarez MD Phone: tel: fax: mailto:[email or web address] Referral ID Status Reason Start Date Expiration Date Visits Re quested Visits Authorized [id number] Closed 08/18/2020 02/13/2021 1 1 Encounter Details Date Type Department Care Team (Late st Contact Info) Description 08/18/2020 Transcribe Orders Virtual Department 30 [place] [address] Kayla Casarez MD 15 [place] [address] [email or web address] Abdominal pain, unspecified abdominal location (Primary Dx) Social History Tobacco Use Types [...] 10:00 AM EDT Office Visit Saman Verma [facility] [address] [facility] [address] [place] [address] Paulina Torrez MD 15 [facility] [address] [place] [address] [email or web address] documented as of this encounter Results * CT ABDOMEN/PELVIS WITH CONTRAST (09/13/2020 9:08 AM EDT) Anatomical Region Laterality Modality Abdomen, Pelvis Computed Tomogra phy 09/13/2020 9:34 AM EDT Impressions 09/13/2020 9:39 AM EDT No specific source of the abdominal pain identified. Hepatic cysts without worrisome features. Minor diverticulosis of the colon. Small fibroid. Constipation. Narrative 09/13/2020 9:39 AM EDT HISTORY: Abdominal pain COMPARISON: None TECHNIQUE: After the administration of oral and intravenous contrast, multidetector CT is obtained from dome of the liver through the inferior pubic rami. Sagittal and coronal reformats generated. Automated exposure control utilized. FINDINGS: Lung bases: Questionable 1-2 mm nodule seen at the left base and at the periphery of the lingula, probably postinflammatory and do not warrant surveillance at this size. Heart not enlarged. Liver and spleen: Septated hepatic cyst in the dome of the left lobe measures slightly and a 2 cm. There is an additional cyst immediately adjacent measuring under centimeter. No worrisome features. No worrisome lesions elsewhere in the liver. No organomegaly. Spleen unremarkable. Biliary tree and pancreas: No findings of concern. Adrenals and : Kidneys and adrenals unremarkable. Small exophytic subserosal fibroid right fundus measuring approximately 1.3 cm. No adnexal masses. Bladder unremarkable. Bowel: Increased stool volumes quickly the right and transverse colon is consistent with constipation. Only scattered colonic diverticula. No evidence of diverticulitis or colitis. Nodes: No adenopathy detected. Vascular: No findings of concern. Soft tissues: No findings of concern. Bones: Lower lumbar degenerative disc disease. No compression deformity or bony destructive lesions identified. Procedure Note Bethel Smith MD - 09/13/2020 HISTORY: Abdominal pain COMPARISON: None TECHNIQUE: After the administration of oral and intravenous contrast,multidetector CT is obtained from dome of the liver through the inferiorpubic rami. Sagittal and coronal reformats generated. Automated exposurecontrol utilized. FINDINGS: Lung bases: Questionable 1-2 mm nodule seen at the left base and at theperiphery of the lingula, probably postinflammatory and do not warrantsurveillance at this size. Heart not enlarged. Liver and spleen: Septated hepatic cyst in the dome of the left lobemeasures slightly and a 2 cm. There is an additional cyst immediatelyadjacent measuring under centimeter. No worrisome features. No worrisomelesions elsewhere in the liver. No organomegaly. Spleen unremarkable. Biliary tree and pancreas: No findings of concern. Adrenals and : Kidneys and adrenals unremarkable. Small exophyticsubserosal fibroid right fundus measuring approximately 1.3 cm. No adnexalmasses. Bladder unremarkable. Bowel: Increased stool volumes quickly the right and transverse colon isconsistent with constipation. Only scattered colonic diverticula. Noevidence of diverticulitis or colitis. Nodes: No adenopathy detected. Vascular: No findings of concern. Soft tissues: No findings of concern. Bones: Lower lumbar degenerative disc disease. No compression deformity orbony destructive lesions identified. IMPRESSION: No specific source of the abdominal pain identified. Hepatic cysts withoutworrisome features. Minor diverticulosis of the colon. Small fibroid.Constipation. Kayla Casarez MD IMG CT ABD/PELVIS Final Res ult documented in this encounter Visit Diagnoses Diagnosis Abdominal pain, unspecified abdominal location- Primary Abdominal pain, unspecified abdominal location documented in this encounter Additional Health Concerns Infection Onset Date Last Indicated Resolved Time CoV-Exposed Comment:Recent close contact documented in the COVID-19 PCR/PRO order 03/19/2021 03/21/2021 04/03/2021 1:[address] documented as of this encounter Care Teams Help Desk Agent Relationship Specialty Start Date End Date Kayla Casarez MD [address] [place] [email or web address] PCP - General 09/21/13 documented as of this encounter Additional Source Comments The information contained in this document represents components of the legal health record. It is not the complete legal health record.[facility]
--- OUTSIDE RECORDS SUMMARY | 2025-01-19 11:41 | XMS_ITS | Encounter Summary ---
Author Organization [facility] Address [address] [facility] [address] [place] [address] Phone Care Team Providers Care Oyster Shipper Name Role Phone Kayla Casarez MD Primary Care Provider [phone] Encounter Details Date Type Department Care Team (Late st Contact Info) Description 03/30/2021 Transcribe Orders Virtual Department 30 [place] [address] Kayla Casarez MD 15 [place] [address] [email or web address] Encounter for laboratory [...] EDT Office Visit [facility] [address] [facility] [address] [place] [address] Paulina Torrez MD 15 [facility] [address] [place] [address] [email or web address] documented as of this encounter Results * COVID-19 PCR Order (04/01/2021 2:14 PM EST) COVID Testing Status Specimen received in analyzing lab. Results should be available within 24 to 48 hrs. [facility] Symptomatic? NO [facility] Other 04/01/2021 2:14 PM EST 04/01/2021 5:26 PM EST Kayla Casarez MD BODY FLUIDS AND STOOLS JUAN CARLOS SOLORIO Final Result [facility] [address] [place] [address] [facility] [address] [place] [id number] documented in this encounter Visit Diagnoses Diagnosis Encounter for laboratory testing for COVID-19 virus- Primary documented in this encounter Additional Health Concerns Infection Onset Date Last Indicated Resolved Time CoV-Exposed Comment:Recent close contact documented in the COVID-19 PCR/PRO order 03/19/2021 03/21/2021 04/03/2021 1:[address] documented as of this encounter Care Teams Oyster Shipper Relationship Specialty Start Date End Date Kayla Casarez MD [address] [place] [phone] [email or web address] PCP - General 09/21/13 documented as of this encounter Additional Source Comments The information contained in this document represents components of the legal health record. It is not the complete legal health record.[facility]
--- OUTSIDE RECORDS SUMMARY | 2025-01-19 11:41 | XMS_ITS | Encounter Summary ---
Author Organization [facility] Address [address] [facility] [address] [place] [address] Phone Care Team Providers Care Research Program Assistant Name Role Phone Kayla Casarez MD Primary Care Provider [phone] Encounter Details Date Type Department Care Team (Late st Contact Info) Description 09/01/2020 Ancillary Orders Virtual Department 30 [place] [address] Charmaine Fernández MD [address] [facility] [address] [address] [place] [address] Breast screening Social History Tobacco Use Types [...] 10/14/2025 10:00 AM EDT Office Visit [facility] [address] [facility] [address] [place] [address] Paulina Torrez MD 15 [facility] [address] [place] [address] documented as of this encounter Results * BI MAMMOGRAM SCREENING WITH TOMOSYNTHESIS WITH CAD (BILATERAL) (12/13/2020 3:40 PM EDT) Anatomical Region Laterality Modality Breast Left, Breast Right, Breast Bilateral Bila teral Mammography 12/13/2020 3:47 PM EDT Impressions 12/13/2020 4:04 PM EDT No mammographic evidence of malignancy. Recommend routine annual surveillance. BI-RADS CATEGORY: 2 - Benign finding. DENSITY: The breast tissue is heterogeneously dense, which could obscure a lesion on mammography. Narrative 12/13/2020 4:04 PM EDT 60-year-old female with no current breast symptoms. Comparison made to previous on 10/20/2019 and as far back as 10/29/2012. Interpretation made in conjunction with computer-aided detection and tomosynthesis. The breasts are heterogeneously dense, which may obscure small masses. Chronic upper right breast focal nodular asymmetry. There are no suspicious masses, areas of architectural distortion, or suspicious clusters of microcalcifications. Procedure Note Liang Mckeon MD - 12/13/2020 60-year-old female with no current breast symptoms. Comparison made toprevious on 10/20/2019 and as far back as 10/29/2012. Interpretation made inconjunction with computer-aided detection and tomosynthesis. The breasts are heterogeneously dense, which may obscure small masses.Chronic upper right breast focal nodular asymmetry. There are no suspicious masses, areas of architectural distortion, orsuspicious clusters of microcalcifications. IMPRESSION: No mammographic evidence of malignancy. Recommend routine annualsurveillance. BI-RADS CATEGORY: 2 - Benign finding. DENSITY: The breast tissue is heterogeneously dense, which could obscurea lesion on mammography. Charmaine Fernández MD IMG MG EXAMS Final Result documented in this encounter Visit Diagnoses Diagnosis Breast screening Breast screening, unspecified Breast screening Breast screening, unspecified documented in this encounter Additional Health Concerns Infection Onset Date Last Indicated Resolved Time CoV-Exposed Comment:Recent close contact documented in the COVID-19 PCR/PRO order 03/19/2021 03/21/2021 04/03/2021 1:[address] documented as of this encounter Care Teams Research Program Assistant Relationship Specialty Start Date End Date Kayla Casarez MD [address] [place] [phone] [email or web address] PCP - General 09/21/13 documented as of this encounter Additional Source Comments The information contained in this document represents components of the legal health record. It is not the complete legal health record.[facility]
--- OUTSIDE RECORDS SUMMARY | 2025-01-19 11:42 | XMS_ITS | Encounter Summary ---
Author Organization [facility] Address [address] [place] [address] Phone Care Team Providers Care Waiter/Waitress Club Name Role Phone Kayla Casarez MD Primary Care Provider [phone] Encounter Details Date Type Department Care Team ([facility] st Contact Info) Description 06/22/2024 Transcribe Orders Virtual Department 30 [place] [address] Kayla Casarez MD 15 [place], [place] [phone] [email or web address] Elevated LFTs (Primary Dx) Social History Tobacco Use Types [...] 10/14/2025 10:00 AM EDT Office Visit [facility] [address] [facility] [address] [place] [address] Paulina Torrez MD 15 [facility] [address] [place] [address] [email or web address] documented as of this encounter Results * US ABDOMEN LIMITED RIGHT UPPER QUADRANT (07/07/2024 8:28 AM EDT) Anatomical Region Laterality Modality Abdomen Ultrasound 07/07/2024 9:06 AM EDT Impressions 07/07/2024 9:10 AM EDT 1. Borderline increased echogenicity of the hepatic parenchyma. This is a nonspecific finding indicating diffuse hepatocellular disease and limiting the sensitivity of this exam. In the correct clinical scenario, this commonly represents fatty liver. Within the limitations of this study, there is no sonographic evidence for focal hepatic lesion. 2. Redemonstration of cysts at the left hepatic lobe, similar. 3. Punctate non-mobile echogenic foci adjacent to the gallbladder wall may reflect small polyps measuring up to 3 mm. Narrative 07/07/2024 9:10 AM EDT US ABDOMEN LIMITED RIGHT UPPER QUADRANT Referring clinician's provided indication for this examination in Epic: Outside Radiology Order; ELEVATED LFT'S TECHNIQUE: US Abdominal limited right upper quadrant. COMPARISON: CT ABDOMEN/PELVIS WITH CONTRAST FINDINGS: Liver: Redemonstration of a septated cyst at the left hepatic lobe measuring 1.7 x 1.9 x 2.3, similar a separate immediately adjacent cyst measures 9 mm, also similar. No additional focal hepatic lesions demonstrated sonographically. There is borderline increased echogenicity of the hepatic parenchyma relative to the right kidney. Main Portal Vein: Patent with normal direction of flow. Gallbladder: There are two small non-mobile echogenic foci adjacent to the gallbladder wall measuring 2 mm and 3 mm respectively. No gallstones or gallbladder wall thickening. Pugh's Sign: Negative. Biliary: No intrahepatic or extrahepatic biliary ductal dilatation. The common bile duct measures 4 mm. Procedure Note Adalgisa Flores MD - 07/07/2024 US ABDOMEN LIMITED RIGHT UPPER QUADRANT Referring clinician's provided indication for this examination in Epic:Outside Radiology Order; ELEVATED LFT'S TECHNIQUE: US Abdominal limited right upper quadrant. COMPARISON: CT ABDOMEN/PELVIS WITH CONTRAST FINDINGS: Liver: Redemonstration of a septated cyst at the left hepatic lobemeasuring 1.7 x 1.9 x 2.3, similar a separate immediately adjacent cystmeasures 9 mm, also similar. No additional focal hepatic lesionsdemonstrated sonographically. There is borderline increased echogenicityof the hepatic parenchyma relative to the right kidney. Main Portal Vein: Patent with normal direction of flow. Gallbladder: There are two small non-mobile echogenic foci adjacent to thegallbladder wall measuring 2 mm and 3 mm respectively. No gallstones orgallbladder wall thickening. Pugh's Sign: Negative. Biliary: No intrahepatic or extrahepatic biliary ductal dilatation. The common bile duct measures 4 mm. IMPRESSION: 1. Borderline increased echogenicity of the hepatic parenchyma. This is anonspecific finding indicating diffuse hepatocellular disease and limitingthe sensitivity of this exam. In the correct clinical scenario, thiscommonly represents fatty liver. Within the limitations of this study,there is no sonographic evidence for focal hepatic lesion. 2. Redemonstration of cysts at the left hepatic lobe, similar. 3. Punctate non-mobile echogenic foci adjacent to the gallbladder wallmay reflect small polyps measuring up to 3 mm. Kayla Casarez MD IMG US ABDOMEN Final Resul t documented in this encounter Visit Diagnoses Diagnosis Elevated LFTs- Primary Other abnormal blood chemistry Elevated LFTs Other abnormal blood chemistry documented in this encounter Care Teams Waiter/Waitress Club Relationship Specialty Start Date End Date Kayla Casarez MD [address] [place] [address] [email or web address] PCP - General 09/21/13 documented as of this encounter Additional Source Comments The information contained in this document represents components of the legal health record. It is not the complete legal health record.[facility]
--- OUTSIDE RECORDS SUMMARY | 2025-01-19 11:42 | XMS_ITS | Encounter Summary ---
Author Organization [facility] Address [address] [facility] [address] [place] [address] Phone Care Team Providers Care Director Building Name Role Phone Kayla Casarez MD Primary Care Provider Encounter Details Date Type Department Care Team (Late Contact Info) Description 08/25/2018 Transcribe Orders Virtual Department 30 [place] [address] Kayla Casarez MD 15 [place], [place] [id number] [email or web address] Post-menopausal (Primary Dx) Social History Tobacco Use Types [...] 10/14/2025 10:00 AM EDT Office Visit [facility] [address] [facility] [address] [place] [address] Paulina Torrez MD 15 [facility] [address] [place] [address] [email or web address] documented as of this encounter Results * BD DXA AXIAL (SPINE) WITH HIP (01/13/2019 10:42 AM EDT) Anatomical Region Laterality Modality Bone Density Bone Density 01/13/2019 5:00 PM EDT Impressions 01/13/2019 5:01 PM EDT Findings consistent with osteopenia. POS -[id number] Narrative 01/13/2019 5:01 PM EDT This is a 58-year-old postmenopausal female presenting for a baseline screening exam. Evaluation of the lumbar spine and both hips is obtained and appears technically adequate. The lumbar spine from L1 through L4 discloses a total bone mineral density of 0.903 g/cm2 with a T-score of -1.3. Z score 0.0. This is in the osteopenia range. The right hip has a total bone mineral density of 0.795 g/cm2 with a T-score of -1.2. Z score -0.3. This is in the osteopenia range. The left hip has a total bone mineral density of 0.793 g/cm2 for a T-score of - 1.2. Z score -0.4. This is in the osteopenia range. Lateral instant vertebral imaging is not performed. Procedure Note Everette Miller MD - 01/13/2019 This is a 58-year-old postmenopausal female presenting for a baselinescreening exam. Evaluation of the lumbar spine and both hips is obtained and appearstechnically adequate. The lumbar spine from L1 through L4 discloses a total bone mineral densityof 0.903 g/cm2 with a T-score of -1.3. Z score 0.0. This is in theosteopenia range. The right hip has a total bone mineral density of 0.795 g/cm2 with aT-score of - 1.2. Z score -0.3. This is in the osteopenia range. The left hip has a total bone mineral density of 0.793 g/cm2 for a T-scoreof - 1.2. Z score -0.4. This is in the osteopenia range. Lateral instant vertebral imaging is not performed. IMPRESSION: Findings consistent with osteopenia. POS -[id number] Kayla Casarez MD IMG BD BONE DENSITY DEXA Fi nal Result documented in this encounter Visit Diagnoses Diagnosis Post-menopausal- Primary Asymptomatic postmenopausal status (age-related) (natural) Post-menopausal Asymptomatic postmenopausal status (age-related) (natural) documented in this encounter Additional Health Concerns Infection Onset Date Last Indicated Resolved Time CoV-Risk 08/28/2019 08/30/2019 09/11/2019 1:23 AM EDT CoV-Exposed Comment:Recent close contact documented in the COVID-19 PCR/PRO order 04/19/2020 04/19/2020 05/03/2020 1:[address] CoV-Exposed Comment:Recent close contact documented in the COVID-19 PCR/PRO order 03/19/2021 03/21/2021 04/03/2021 1:[address] documented as of this encounter Care Teams Director Building Relationship Specialty Start Date End Date aKyla Casarez MD [address] [place] [address] [email or web address] PCP - General 09/21/13 documented as of this encounter Additional Source Comments The information contained in this document represents components of the legal health record. It is not the complete legal health record.[facility]
--- OUTSIDE RECORDS SUMMARY | 2025-01-19 11:42 | XMS_ITS | Encounter Summary ---
Author Organization [facility] Address [address] [facility] [address] [place] [address] Phone Care Team Providers Care Navigating Officer Name Role Phone Kayla Casarez MD Primary Care Provider Encounter Details Date Type Department Care Team (Late st Contact Info) Description 10/06/2018 Ancillary Orders Virtual Department 30 [place] [address] Charmaine Fernández MD [address] [place] [address] Visit for screening mammogram Social [...] 10/14/2025 10:00 AM EDT Office Visit [facility] [address] [facility] [address] [place] [address] Paulina Torrez MD 15 [facility] [address] [place] [address] [email or web address] documented as of this encounter Results * BI MAMMOGRAM SCREENING WITH TOMOSYNTHESIS WITH CAD (BILATERAL) (10/14/2018 12:00 PM EDT) Anatomical Region Laterality Modality Breast Left, Breast Right, Breast Bilateral Bila teral Mammography 10/14/2018 1:16 PM EDT Impressions 10/14/2018 1:18 PM EDT Normal negative. Routine screening recommended. BI-RADS CATEGORY: 1 - Negative. DENSITY: The breast tissue is heterogeneously dense, an appearance which lowers the sensitivity of mammography. POS -[id number] Narrative 10/14/2018 1:18 PM EDT Bilateral full-field digital screening mammography is obtained and read in conjunction with computer-aided detection. Tomosynthesis as well as 2-D C view imaging of both breasts in two planes also obtained. Comparison dating back to 2014. Breast parenchyma is heterogeneously dense limiting mammographic sensitivity. No worrisome asymmetries or masses. No suspicious calcifications. No areas of architectural distortion. No skin or nipple finding of concern is appreciated. Procedure Note Beny Holder MD - 10/14/2018 Bilateral full-field digital screening mammography is obtained and read inconjunction with computer-aided detection. Tomosynthesis as well as 2-D Cview imaging of both breasts in two planes also obtained. Comparison dating back to 2014. Breast parenchyma is heterogeneously dense limiting mammographicsensitivity. No worrisome asymmetries or masses. No suspiciouscalcifications. No areas of architectural distortion. No skin or nipplefinding of concern is appreciated. IMPRESSION: Normal negative. Routine screening recommended. BI-RADS CATEGORY: 1 - Negative. DENSITY: The breast tissue is heterogeneously dense, an appearance whichlowers the sensitivity of mammography. POS -[id number] Charmaine Fernández MD IMG MG EXAMS Final [...] documented as of this encounter Care Teams Navigating Officer Relationship Specialty Start Date End Date Kayla Casarez MD [address] [place] [id number] [email or web address] PCP - General 09/21/13 documented as of this encounter Additional Source Comments The information contained in this document represents components of the legal health record. It is not the complete legal health record.[facility]
--- OUTSIDE RECORDS SUMMARY | 2025-01-19 11:42 | XMS_ITS | Clinical Summary ---
Author Organization [facility] Address [address] [place] [address] Care Team Providers Care Toppiece Chopper Name Role Phone Unavailable Primary Care Provider [...] of 2) 2010 COVID-19 Vaccine ( - 2024-2 6 season) 2024 Influenza (#1) 2024 RSV (1 - 1-dose [...]
--- OUTSIDE RECORDS SUMMARY | 2025-01-19 11:42 | XMS_ITS | Encounter Summary ---
Author Organization [facility] Address [address] [place] [phone] Phone Care Team Providers Care Health Social Work Professor Name Role Phone Kayla Casarez MD Primary Care Provider Encounter Details Date Type Department Care Team (Late st Contact Info) Description 04/14/2024 Transcribe Orders [facility] Laboratory [address] [facility] 2nd [place] [address] Kayla Casarez MD [address] [place] [address] [email or web address] PE (physical exam), routine (Primary Dx); Hypothyroidism, unspecified type Social History Tobacco Use [...] Description 10/14/2025 10:00 AM EDT Office Visit [facility] [address] [facility] [address] [place] [address] Paulina Torrez MD [address] [facility] [address]. [address] [place] [address] [email or web address] documented as of this encounter Results * TSH with reflex (04/14/2024 8:26 AM EST) TSH 1.43 0.27 - 4.20 uIU/mL [facility] Blood 04/14/2024 8:26 AM EST 04/14/2024 8:38 AM EST Kayla Casarez MD LAB BLOOD ORDERABLES Final Result [facility] [address] [place] [address] * (ABNORMAL) Lipid panel (04/14/2024 8:26 AM EST) HDL 76 mg/dL [facility] Comment: Interpretation <40 mg/dL: Low HDL cholesterol (major risk factor for CHD) Greater than or equal to 60 mg/dL: High HDL cholesterol ( negative risk factor for CHD) HDL - cholesterol is affected by a number of factors, e.g. smoking, excerise, hormones, sex and age. CHOLESTEROL 219 0 - 240 mg/dL [facility] TRIGLYCERIDES 108 30 - 160 mg/dL [facility] LDL 121 50 - 129 mg/dL [facility] Comment: LDL levels in terms of risk for coronary heart disease: <100 mg/dL: Optimal 100-129 mg/dL: Near or above optimal 130-159 mg/dL: Borderline high 160-189 mg/dL: High >190 mg/dL: Very High CARDIAC RISK RATIO 2.9(L) 3.3 - 4.4 C [facility] Blood 04/14/2024 8:26 AM EST 04/14/2024 8:31 AM EST us Kayla Casarez MD LAB BLOOD ORDERABLES Final Result Performing Organization Address [facility]/ZIP Co de Phone Number [address] [phone] * (ABNORMAL) Comprehensive metabolic panel (04/14/2024 8:26 AM EST) SODIUM 138 133 - 146 mmol/L [facility] POTASSIUM 4.0 3.3 - 5.1 mmol/L [facility] CHLORIDE 105 96 - 108 mmol/L [facility] CO2 25 21 - 35 mmol/L [facility] BUN 9 6 - 19 mg/dL [facility] CREATININE 0.70 0.5 - 1.5 mg/dL [facility] GLUCOSE 103(H) 70 - 99 mg/dL [facility] ALBUMIN 4.0 3.9 - 4.8 g/dL [facility] TOTAL PROTEIN 6.8 6.5 - 8.0 g/dL [facility] CALCIUM 9.5 8.4 - 10.3 mg/dL [facility] ALKALINE PHOSPHATASE 71 39 - 117 U/L [facility] TOTAL BILIRUBIN 0.7 0.0 - 1.2 mg/dL [facility] AST 38(H) 0 - 37 U/L [facility] ALT 46(H) 0 - 40 U/L [facility] GLOBULIN 2.8 1 - 4.8 g/dL [facility] EGFR 97 >59 mL/min/1.7 3m2 [facility] Comment:Estimated glomerular filtration rate calculated using the CKD-EPI refit equation. ANION GAP 12 10 - 20 mmol/L [facility] Blood 04/14/2024 8:26 AM EST 04/14/2024 8:38 AM EST us Kayla Casarez MD LAB BLOOD ORDERABLES Final Result Performing Organization Address City/[facility]/ZIP Co de Phone Number [address] [phone] documented in this encounter Visit Diagnoses Diagnosis PE (physical exam), routine- Primary Hypothyroidism, unspecified type documented in this encounter Care Teams Health Social Work Professor Relationship Specialty Start Date End Date Kayla Casarez MD [address] [place] [phone] [email or web address] PCP - General 09/21/13 documented as of this encounter Additional Source Comments The information contained in this document represents components of the legal health record. It is not the complete legal health record.[facility]
--- OUTSIDE RECORDS SUMMARY | 2025-01-19 11:42 | XMS_ITS | Clinical Summary ---
Author Organization [facility] Address [address] [place] [phone] Phone Care Team Providers Care Delinquency Prevention Social Worker Name Role Phone Kayla Ordaz MD Primary Care Provider Allergies Active Allergy Reactions Criticality Noted Date Comments Penicillins Hives 02/24/2013 Medications levothyroxine (SYNTHROID, LEVOTHROID) 50 MCG tablet 1 tablet on an empty stomach in the morning Active eletriptan (RELPAX) 40 MG tablet Take 20 mg by mouth as needed. Active ibuprofen (ADVIL,MOTRIN) 200 MG tablet Take 400 mg by mouth as needed. Active fexofenadine (LUIS) 180 MG tablet Take 180 mg by mouth daily. Active folic acid (FOLVITE) 1 MG tabletIndicatio ns:Psoriatic arthritis TAKE 1 TABLET BY MOUTH EVERY DAY 90 tablet 3 03/12/2021 Active methotrexate 2.5 MG Oral tablet Take 5 tablets (12.5 mg total) by mouth once a week. 60 tablet 04/18/2022 Active HUMIRA,CF, PEN 40 mg/0.4 mL pen kitIndications: Psoriatic arthritis INJECT 0.4 ML (40 MG TOTAL) UNDER THE SKIN EVERY 7 DAYS FOR 12 DOSES. 4 kit 07/19/2022 Active Active Problems Problem Noted Date Diagnosed Date Anterior leg pain 09/04/2021 Overview (09/04/2021): 3 mo hx rachid anterior leg pain a/w walking Tender tibia suggestive hooper splits but a bit unusual with level of activity Also has varicosities which may be contributing-continue compression hose Hx of Vit D deficiency-repeat Vit D level today Declines XR today Assessment & Plan (09/04/2021 8:45 AM EDT): 3 mo hx rachid anterior leg pain a/w walking Tender tibia suggestive hooper splits but a bit unusual with level of activity Also has varicosities which may be contributing-continue compression hose Hx of Vit D deficiency-repeat Vit D level today Declines XR today Abdominal wall pain 09/06/2020 Assessment & Plan (09/06/2020 8:53 AM EDT): CT abdomen pending. Discussed results when they come in. Symptoms suggestive of oblique and rectus microtears. Suggest continued as needed use of ibuprofen and relative rest with local warmth and then when asymptomatic initiating a slowly progressive core strengthening program. Osteopenia of multiple sites 08/25/2019 Assessment & Plan (01/08/2022 4:27 PM EDT): DEXA 2019 osteopenia Will repeat DEXA Continue Ca and Vit D supplements WB exercise Assessment & Plan (09/04/2021 8:46 AM EDT): DEXA 2019 osteopenia Will repeat DEXA Continue Ca and Vit D supplements WB exercise Assessment & Plan (11/08/2020 12:38 PM EDT): DEXA scan ordered. Vitamin D encouraged. Call with results. Previous scan reviewed. Results for orders placed or performed during the hospital encounter of 01/13/19 (from the past 539[address] hour(s)) DXA Screening Narrative This is a 58-year-old postmenopausal female presenting [...] Lateral instant vertebral imaging is not performed. Impression Findings consistent with osteopenia. POS -[id number] Assessment & Plan (04/05/2020 2:00 PM EST): December 2018 bone density reviewed. Fall and fracture strategies reviewed. Vitamin D supplementation will continue. Another bone densitometry in December 2020. Results for orders placed or performed during the hospital encounter of 01/13/19 (from the past [id number] hour(s)) DXA Screening Narrative This is a 58-year-old postmenopausal female presenting [...] Lateral instant vertebral imaging is not performed. Impression Findings consistent with osteopenia. POS -[id number] Assessment & Plan (08/25/2019 2:46 PM EDT): Bone density reviewed. Continue vitamin D3. Encourage compliance with vitamin D3. Last level was subtherapeutic. We will repeat that at the end of this month along with her other lab work. Effusion of left knee 05/07/2017 Assessment & Plan (04/01/2018 4:50 PM EST): General measures for joint protection including weight modification, well fitting supportive shoes with good shock absorption and quadricep strengthening. Assessment & Plan (07/23/2017 1:25 PM EDT): Patient has recurrent left knee effusion. I reviewed the x-ray indicating some sharpening of the tibial spines but no real changes of degenerative arthritis or erosive disease. I'm hoping that the continuous of Humira done weekly along with methotrexate now will help reduce the synovitis and she will receive a therapeutic aspiration and cortisone injection today. If this is not helpful then I will strongly consider doing an MRI of the left knee to rule out internal derangement. Assessment & Plan (05/21/2017 5:01 PM EST): Patient states that she is having return of the left knee effusion after Dr. Mcnair aspirated and injected the left knee on May 07. I reviewed the synovial fluid analysis which revealed a grade 2 inflammatory fluid consistent with psoriatic arthritis. Now that she has been approved for weekly Humira injections which she will begin this week, the hope is that the persistent synovitis in the left knee with diminished but if it does not then she may need a repeat aspiration and injection next week. In addition, I cannot rule out an underlying mechanical derangement such as a medial meniscal tear which may require an MRI scan of the knee to discern. All of her questions were answered. Bilateral sacroiliitis 04/23/2017 Assessment & Plan (04/05/2020 1:59 PM EST): Somewhat more symptomatic. This is part of her picture of psoriatic arthritis with her enthesopathy and peripheral synovitis. Core strengthening, weight modification, warmth, and ibuprofen on an as-needed basis while continuing disease modifying antirheumatic drugs. Assessment & Plan (01/13/2019 12:25 PM EDT): Stable. Some stiffness and pain but no worse. Assessment & Plan (10/07/2018 12:08 PM EDT): As part of a wider syndrome of psoriatic arthritis her bilateral sacroiliitis is under good control. Core strengthening weight modification well fitting supportive shoes and daily stretches. 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 She will have a flu vaccine today. She will continue current medication therapy but I did talk to her about slow taper off the methotrexate as time goes by if she remains well. She would not like to do that at the present time. There are no extra-articular manifestations of disease. She has had no intercurrent infections. She does routinely go to her physician and she has cancer screening appropriate for her age and gender. I reviewed lab work done yesterday indicating a normal CBC with differential, no elevation of C-reactive protein, normal liver function test, electrolytes, and basic metabolic profile. 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 I would favor changing biologic rather than increasing frequency of Humira Lab monitoring q 6 weeks Assessment & Plan (09/04/2021 8:43 AM EDT): Carries the diagnosis of PSA and sacroiilitis on Humira and MTX She denies any psoriasis Symptomatically feels well No evidence of active dz by labs or imaging Labs normal Cbc CMP ESR CRP XR lumbar spine with deg changes MRI SI joints without active sacroiiliits Lab monitoring for high risk meds today Also reminded to hold Humira for any active infection Continue Humira and MTX Assessment & Plan (05/07/2021 10:55 AM EST): Carries the diagnosis of PSA and sacroiilitis on Humira and MTX She denies any psoriasis Symptomatically feels well No evidence of active dz by labs or imaging Labs normal Cbc CMP ESR CRP XR lumbar spine with deg changes MRI SI joints without active sacroiiliits Pt reminded on MTX needs routine labs q 6 weeks Also reminded to hold Humira for any active infection (off humira recently for ear infection with increased pain which improved after restarting medication Continue Humira and MTX Assessment & Plan (02/28/2021 11:20 PM EST): Carries the diagnosis of PSA and sacroiilitis on Humira and MTX She denies any psoriasis but ongoing significant stiffness Suggestive of active disease Labs today Cbc CMP ESR CRP Check XR lumbar spine and MRI SI joints to look for active sacroiliits Pt reminded on MTX needs routine labs q 6 weeks Also reminded to hold Humira for any active infection Assessment & Plan (11/08/2020 12:38 PM EDT): Polyarticular psoriatic arthritis in a patient on Humira weekly and methotrexate 12.5 mg. No toxicity from either drug. Immunosuppression discussed. 600 mg of ibuprofen may be taken 2 or 3 times a day as tolerated. Referral to physical therapy is made for back pain. She recently had a flare of her midthoracic back pain. She will also have an evaluation for core strengthening for sacroiliitis. Medications to remain unchanged. Laboratory work reviewed. Hospital Outpatient Visit on 08/19/2020 Component Date Value Ref Range Status WBC 08/19/2020 4.55 4.00 - 11.00 K/uL Final RBC 08/19/2020 4.14 3.72 - 5.30 M/uL Final HGB 08/19/2020 13.7 11.4 - 15.9 g/dL Final HCT 08/19/2020 40.6 34.2 - 46.8 % Final PLT 08/19/2020 230 140 - 430 K/uL Final MCV 08/19/2020 98.1* 78.0 - 97.0 fL Final MCH 08/19/2020 33.1* 25.0 - 33.0 pg Final MCHC 08/19/2020 33.7 32.0 - 36.0 g/dL Final RDW 08/19/2020 12.4 11.0 - 16.0 % Final MPV 08/19/2020 11.4 8.4 - 12.8 fl Final NRBC 08/19/2020 0.00 0 /100 WBCs Final ABSOLUTE NRBC 08/19/2020 0.00 0 K/uL Final DIFF METHOD 08/19/2020 Auto Final NEUTS 08/19/2020 35.0* 43.0 - 75.0 % Final LYMPHS 08/19/2020 50.5* 18.2 - 47.4 % Final MONOS 08/19/2020 9.2 4.00 - 11.00 % Final EOS 08/19/2020 4.4 0.0 - 8.0 % Final BASOS 08/19/2020 0.7 0.0 - 2.0 % Final Granulocytes, immature (%) 08/19/2020 0.2 0.0 - 0.9 % Final ABSOLUTE NEUTS 08/19/2020 1.59* 1.80 - 7.70 K/uL Final ABSOLUTE LYMPHS 08/19/2020 2.30 1.00 - 3.10 K/uL Final ABSOLUTE MONOS 08/19/2020 0.42 0.20 - 0.80 K/uL Final ABSOLUTE EOS 08/19/2020 0.20 0.00 - 0.80 K/uL Final ABSOLUTE BASOS 08/19/2020 0.03 0.00 - 0.09 K/uL Final Granulocytes, immature 08/19/2020 0.01 0.00 - 0.05 K/uL Final C REACTIVE PROTEIN 08/19/2020 <3.0 0.0 - 4.0 mg/L Final SODIUM 08/19/2020 138 133 - 146 mmol/L Final POTASSIUM 08/19/2020 4.4 3.3 - 5.1 mmol/L Final CHLORIDE 08/19/2020 103 96 - 108 mmol/L Final CO2 08/19/2020 25 21 - 35 mmol/L Final BUN 08/19/2020 11 6 - 19 mg/dL Final CREATININE 08/19/2020 0.60 0.5 - 1.5 mg/dL Final GLUCOSE 08/19/2020 102* 70 - 99 mg/dL Final ALBUMIN 08/19/2020 4.4 3.9 - 4.8 g/dL Final TOTAL PROTEIN 08/19/2020 7.3 6.5 - 8.0 g/dL Final CALCIUM 08/19/2020 10.1 8.4 - 10.3 mg/dL Final ALKALINE PHOSPHATASE 08/19/2020 61 39 - 117 U/L Final TOTAL BILIRUBIN 08/19/2020 0.6 0.0 - 1.2 mg/dL Final AST 08/19/2020 15 0 - 37 U/L Final ALT 08/19/2020 13 0 - 40 U/L Final GLOBULIN 08/19/2020 2.9 1 - 4.8 g/dL Final EGFR 08/19/2020 99 >59 mL/min/1.73m2 Final Estimated glomerular filtration rate calculated using the CKD-EPI equation. ANION GAP 08/19/2020 14 10 - 20 mmol/L Final HDL 08/19/2020 90 mg/dL Final Comment: Interpretation <40 mg/dL: Low HDL cholesterol (major risk factor for CHD) Greater than or equal to 60 mg/dL: High HDL cholesterol ( negative risk factor for CHD) HDL - cholesterol is affected by a number of factors, e.g. smoking, excerise, hormones, sex and age. CHOLESTEROL 08/19/2020 247* 0 - 240 mg/dL Final TRIGLYCERIDES 08/19/2020 78 30 - 160 mg/dL Final LDL 08/19/2020 141* 50 - 129 mg/dL Final Comment: LDL levels in terms of risk for coronary heart disease: <100 mg/dL: Optimal 100-129 mg/dL: Near or above optimal 130-159 mg/dL: Borderline high 160-189 mg/dL: High >190 mg/dL: Very High CARDIAC RISK RATIO 08/19/2020 2.7* 3.3 - 4.4 Final TSH 08/19/2020 2.40 0.27 - 4.20 uIU/mL Final 25 [place] VIT D (TOTAL) 08/19/2020 31 30 - 60 ng/mL Final ESR 08/19/2020 2 0 - 30 mm/h Final VITAMIN B12 08/19/2020 459 232 - 1,245 pg/mL Final Assessment & Plan (09/06/2020 8:53 AM EDT): Labs reviewed. Continue methotrexate and Humira at current doses. May continue to use tramadol and ibuprofen as needed. No extra-articular manifestations of disease. CRP reassuringly low. No change in treatment. Hospital Outpatient Visit on 08/19/2020 Component Date Value Ref Range Status WBC 08/19/2020 4.55 4.00 - 11.00 K/uL Final RBC 08/19/2020 4.14 3.72 - 5.30 M/uL Final HGB 08/19/2020 13.7 11.4 - 15.9 g/dL Final HCT 08/19/2020 40.6 34.2 - 46.8 % Final PLT 08/19/2020 230 140 - 430 K/uL Final MCV 08/19/2020 98.1* 78.0 - 97.0 fL Final MCH 08/19/2020 33.1* 25.0 - 33.0 pg Final MCHC 08/19/2020 33.7 32.0 - 36.0 g/dL Final RDW 08/19/2020 12.4 11.0 - 16.0 % Final MPV 08/19/2020 11.4 8.4 - 12.8 fl Final NRBC 08/19/2020 0.00 0 /100 WBCs Final ABSOLUTE NRBC 08/19/2020 0.00 0 K/uL Final DIFF METHOD 08/19/2020 Auto Final NEUTS 08/19/2020 35.0* 43.0 - 75.0 % Final LYMPHS 08/19/2020 50.5* 18.2 - 47.4 % Final MONOS 08/19/2020 9.2 4.00 - 11.00 % Final EOS 08/19/2020 4.4 0.0 - 8.0 % Final BASOS 08/19/2020 0.7 0.0 - 2.0 % Final Granulocytes, immature (%) 08/19/2020 0.2 0.0 - 0.9 % Final ABSOLUTE NEUTS 08/19/2020 1.59* 1.80 - 7.70 K/uL Final ABSOLUTE LYMPHS 08/19/2020 2.30 1.00 - 3.10 K/uL Final ABSOLUTE MONOS 08/19/2020 0.42 0.20 - 0.80 K/uL Final ABSOLUTE EOS 08/19/2020 0.20 0.00 - 0.80 K/uL Final ABSOLUTE BASOS 08/19/2020 0.03 0.00 - 0.09 K/uL Final Granulocytes, immature 08/19/2020 0.01 0.00 - 0.05 K/uL Final C REACTIVE PROTEIN 08/19/2020 <3.0 0.0 - 4.0 mg/L Final SODIUM 08/19/2020 138 133 - 146 mmol/L Final POTASSIUM 08/19/2020 4.4 3.3 - 5.1 mmol/L Final CHLORIDE 08/19/2020 103 96 - 108 mmol/L Final CO2 08/19/2020 25 21 - 35 mmol/L Final BUN 08/19/2020 11 6 - 19 mg/dL Final CREATININE 08/19/2020 0.60 0.5 - 1.5 mg/dL Final GLUCOSE 08/19/2020 102* 70 - 99 mg/dL Final ALBUMIN 08/19/2020 4.4 3.9 - 4.8 g/dL Final TOTAL PROTEIN 08/19/2020 7.3 6.5 - 8.0 g/dL Final CALCIUM 08/19/2020 10.1 8.4 - 10.3 mg/dL Final ALKALINE PHOSPHATASE 08/19/2020 61 39 - 117 U/L Final TOTAL BILIRUBIN 08/19/2020 0.6 0.0 - 1.2 mg/dL Final AST 08/19/2020 15 0 - 37 U/L Final ALT 08/19/2020 13 0 - 40 U/L Final GLOBULIN 08/19/2020 2.9 1 - 4.8 g/dL Final EGFR 08/19/2020 99 >59 mL/min/1.73m2 Final Estimated glomerular filtration rate calculated using the CKD-EPI equation. ANION GAP 08/19/2020 14 10 - 20 mmol/L Final HDL 08/19/2020 90 mg/dL Final Comment: Interpretation <40 mg/dL: Low HDL cholesterol (major risk factor for CHD) Greater than or equal to 60 mg/dL: High HDL cholesterol ( negative risk factor for CHD) HDL - cholesterol is affected by a number of factors, e.g. smoking, excerise, hormones, sex and age. CHOLESTEROL 08/19/2020 247* 0 - 240 mg/dL Final TRIGLYCERIDES 08/19/2020 78 30 - 160 mg/dL Final LDL 08/19/2020 141* 50 - 129 mg/dL Final Comment: LDL levels in terms of risk for coronary heart disease: <100 mg/dL: Optimal 100-129 mg/dL: Near or above optimal 130-159 mg/dL: Borderline high 160-189 mg/dL: High >190 mg/dL: Very High CARDIAC RISK RATIO 08/19/2020 2.7* 3.3 - 4.4 Final TSH 08/19/2020 2.40 0.27 - 4.20 uIU/mL Final 25 [place] VIT D (TOTAL) 08/19/2020 31 30 - 60 ng/mL Final ESR 08/19/2020 2 0 - 30 mm/h Final VITAMIN B12 08/19/2020 459 232 - 1,245 pg/mL Final Hospital Outpatient Visit on 06/28/2020 Component Date Value Ref Range Status C REACTIVE PROTEIN 06/28/2020 <3.0 0.0 - 4.0 mg/L Final ALKALINE PHOSPHATASE 06/28/2020 63 39 - 117 U/L Final TOTAL BILIRUBIN 06/28/2020 0.5 0.0 - 1.2 mg/dL Final DIRECT BILIRUBIN 06/28/2020 <0.2 0 - 0.3 mg/dL Final Bilirubin (Indirect) 06/28/2020 NOT CALCULATED 0 - 1.5 mg/dL Final AST 06/28/2020 24 0 - 37 U/L Final ALT 06/28/2020 15 0 - 40 U/L Final TOTAL PROTEIN 06/28/2020 7.3 6.5 - 8.0 g/dL Final ALBUMIN 06/28/2020 4.5 3.9 - 4.8 g/dL Final GLOBULIN 06/28/2020 2.8 1 - 4.8 g/dL Final A/G Ratio 06/28/2020 1.61 1.00 - 4.80 RATIO Final Assessment & Plan (07/05/2020 12:02 PM EDT): Patient with psoriatic arthritis marked by peripheral enthesopathy synovitis and bilateral sacroiliitis is doing reasonably well on 40 mg of Humira weekly and methotrexate at 12.5 mg weekly. Attempts at decreasing methotrexate or increasing dosing interval of Humira have been met with increasing polyarthritis. There are no extra-articular manifestations of disease and she exhibits no toxicity from either the methotrexate or Humira. Medications will continue unchanged. Laboratory work was checked. Follow-up will be in October. Hospital Outpatient Visit on 06/28/2020 Component Date Value Ref Range Status C REACTIVE PROTEIN 06/28/2020 <3.0 0.0 - 4.0 mg/L Final ALKALINE PHOSPHATASE 06/28/2020 63 39 - 117 U/L Final TOTAL BILIRUBIN 06/28/2020 0.5 0.0 - 1.2 mg/dL Final DIRECT BILIRUBIN 06/28/2020 <0.2 0 - 0.3 mg/dL Final Bilirubin (Indirect) 06/28/2020 NOT CALCULATED 0 - 1.5 mg/dL Final AST 06/28/2020 24 0 - 37 U/L Final ALT 06/28/2020 15 0 - 40 U/L Final TOTAL PROTEIN 06/28/2020 7.3 6.5 - 8.0 g/dL Final ALBUMIN 06/28/2020 4.5 3.9 - 4.8 g/dL Final GLOBULIN 06/28/2020 2.8 1 - 4.8 g/dL Final A/G Ratio 06/28/2020 1.61 1.00 - 4.80 RATIO Final Hospital Outpatient Visit on 04/19/2020 Component Date Value Ref Range Status COVID Testing Status 04/19/2020 Specimen received in analyzing lab. Results should be available within 24 to 48 hrs. Final Symptomatic? 04/19/2020 NO Final Specimen Source 04/19/2020 AN SWAB Final SARS-CoV 2 (COVID-19) PCR 04/19/2020 NEGATIVE Negative Final Comment: (NOTE) 2019-novel Coronavirus (2019-nCoV) not detected by the qRT-PCR assay. Consider testing for other respiratory viruses or re-collecting for 2019-nCoV testing. Note: Optimum timing for peak viral levels during infections caused by 2019-nCoV have not been determined. Collection of multiple specimens from the same patient may be necessary to detect the virus. Methods and Limitations: This Laboratory Developed Test is a high-throughput version of the CDC 2019-nCoV Realtime RT-PCR test and has been validated in accordance with the guidance issued by the [employer] (May) and the FDA (May 22, 2019). This test has not been FDA cleared or approved but is being run under the FDA's Emergency Use Authorization (EUA) mechanism. This test was validated for dry nasal swabs. Method: RNA is isolated from respiratory specimens using [employer] Viral RNA Isolation Kits ([employer]); RNA is reverse transcribed to cDNA, and subsequently ampl ified in a Real-Time PCR Instrument ([employer] [id number]). This system provides qualitative detection of nucleic acid from SARS-CoV-2. For more detailed information on the test methods and limitations as well as for Fact Sheets for both Patients and Healthcare providers see https://[email or web address]-[email or web address]-anqc-pigou-19-mine ti ng-work-0 Positive results are indicative of active infection with SARS-CoV-2 but do not rule out bacterial infection or co-infection with other viruses. The agent detected may not be the definite cause of disease. Negative results do not preclude SARS-CoV-2 infection and should not be used as the sole basis for patient management decisions. False negative results may occur if amplification inhibitors are present in the specimen or if inadequate numbers of organisms are present in the specimen due to improper collection, transportation, or handling. If the virus mutates in the RT-PCR target region, SARS-CoV-2 may not be det ected or may be detected less predictably. Inhibitors or other types of interference may produce a false negative result. Assessment & Plan (04/05/2020 1:59 PM EST): Active polyarticular psoriatic arthritis. Continue Humira. Continue methotrexate. Discussed changes in medication when she gets vaccinated and the weather warms with reduction of methotrexate slowly and if she is able to get off methotrexate we then made try to reduce her Humira to every 2 weeks. Laboratory work was checked and new lab work is ordered to be done 1 week prior to our next visit. Hospital Outpatient Visit on 03/01/2020 Component Date Value Ref Range Status IMMUNOGLOBULIN M 03/01/2020 175 40 - 230 mg/dL Final IMMUNOGLOBULIN G 03/01/2020 1,140 700 - 1,600 mg/dL Final SODIUM 03/01/2020 140 133 - 146 mmol/L Final POTASSIUM 03/01/2020 4.2 3.3 - 5.1 mmol/L Final CHLORIDE 03/01/2020 105 96 - 108 mmol/L Final CO2 03/01/2020 25 21 - 35 mmol/L Final BUN 03/01/2020 12 6 - 19 mg/dL Final CREATININE 03/01/2020 0.80 0.5 - 1.5 mg/dL Final GLUCOSE 03/01/2020 104* 70 - 99 mg/dL Final ALBUMIN 03/01/2020 4.5 3.9 - 4.8 g/dL Final TOTAL PROTEIN 03/01/2020 7.7 6.5 - 8.0 g/dL Final CALCIUM 03/01/2020 10.0 8.4 - 10.3 mg/dL Final ALKALINE PHOSPHATASE 03/01/2020 73 39 - 117 U/L Final TOTAL BILIRUBIN 03/01/2020 0.5 0.0 - 1.2 mg/dL Final AST 03/01/2020 26 0 - 37 U/L Final ALT 03/01/2020 15 0 - 40 U/L Final GLOBULIN 03/01/2020 3.2 1 - 4.8 g/dL Final EGFR 03/01/2020 81 >59 mL/min/1.73m2 Final Estimated glomerular filtration rate calculated using the CKD-EPI equation. ANION GAP 03/01/2020 14 10 - 20 mmol/L Final C REACTIVE PROTEIN 03/01/2020 1.4 0.0 - 4.0 mg/L Final WBC 03/01/2020 7.36 4.00 - 11.00 K/uL Final Note Reference Range updates to all CBC and Differential results. RBC 03/01/2020 4.21 3.72 - 5.30 M/uL Final HGB 03/01/2020 13.6 11.4 - 15.9 g/dL Final Note updated Reference Ranges for all CBC and Differential results. HCT 03/01/2020 41.2 34.2 - 46.8 % Final PLT 03/01/2020 252 140 - 430 K/uL Final MCV 03/01/2020 97.9* 78.0 - 97.0 fL Final MCH 03/01/2020 32.3 25.0 - 33.0 pg Final MCHC 03/01/2020 33.0 32.0 - 36.0 g/dL Final RDW 03/01/2020 12.4 11.0 - 16.0 % Final MPV 03/01/2020 11.8 8.4 - 12.8 fl Final NRBC 03/01/2020 0.00 0 /100 WBCs Final ABSOLUTE NRBC 03/01/2020 0.00 0 K/uL Final DIFF METHOD 03/01/2020 Auto Final NEUTS 03/01/2020 43.5 43.0 - 75.0 % Final LYMPHS 03/01/2020 47.6* 18.2 - 47.4 % Final MONOS 03/01/2020 6.9 4.00 - 11.00 % Final EOS 03/01/2020 1.2 0.0 - 8.0 % Final BASOS 03/01/2020 0.5 0.0 - 2.0 % Final Granulocytes, immature (%) 03/01/2020 0.3 0.0 - 0.9 % Final ABSOLUTE NEUTS 03/01/2020 3.20 1.80 - 7.70 K/uL Final ABSOLUTE LYMPHS 03/01/2020 3.50* 1.00 - 3.10 K/uL Final ABSOLUTE MONOS 03/01/2020 0.51 0.20 - 0.80 K/uL Final ABSOLUTE EOS 03/01/2020 0.09 0.00 - 0.80 K/uL Final ABSOLUTE BASOS 03/01/2020 0.04 0.00 - 0.09 K/uL Final Granulocytes, immature 03/01/2020 0.02 0.00 - 0.05 K/uL Final Assessment & Plan (12/15/2019 3:28 PM EDT): Patient has polyarticular psoriatic arthritis as well as bilateral sacroiliitis. Review of lab work shows no toxicity from medications. As I explained to her today we will add immunoglobulin levels to try to assess the level of her humoral immunity on the next visit. She will remain on 12.5 mg of methotrexate every week as well as 40 mg of Humira every week, ibuprofen on an as-needed basis and folic acid rescue every day. Hospital Outpatient Visit on 10/20/2019 Component Date Value Ref Range Status 25 OH VIT D (TOTAL) 10/20/2019 33 30 - 60 ng/mL Final QUANTIFERON-TB GOLD 10/20/2019 Negative Negative Final Comment: (NOTE) No interferon-gamma response to M. tuberculosis antigens was detected. Infection with M. tuberculosis is unlikely. A single negative result does not exclude infection with M. tuberculosis. In patients at high risk for M.tuberculosis infection, a second test should be considered in accordance with the 2017 ATS/IDSA/CDC Clinical Practice Guidelines for Diagnosis of Tuberculosis in Adults and Children [Ivonne NARANJO et. al. Clin. Infect. Dis. 2017;64(2):111-115]. The reference range for the 'TB1 Ag minus Nil Result' and 'TB2 Ag minus Nil Result' is an Interferon-gamma level <0.35 IU/mL. TB1 AG MINUS NIL 10/20/2019 0.00 IU/mL Final TB2 AG MINUS NIL 10/20/2019 0.00 IU/mL Final MITOGEN MINUS NIL 10/20/2019 7.26 IU/mL Final NIL RESULT 10/20/2019 0.01 IU/mL Final SODIUM 10/20/2019 139 133 - 146 mmol/L Final POTASSIUM 10/20/2019 4.2 3.3 - 5.1 mmol/L Final CHLORIDE 10/20/2019 102 96 - 108 mmol/L Final CO2 10/20/2019 26 21 - 35 mmol/L Final BUN 10/20/2019 11 6 - 19 mg/dL Final CREATININE 10/20/2019 0.70 0.5 - 1.5 mg/dL Final GLUCOSE 10/20/2019 102* 70 - 99 mg/dL Final ALBUMIN 10/20/2019 4.5 3.9 - 4.8 g/dL Final TOTAL PROTEIN 10/20/2019 7.2 6.5 - 8.0 g/dL Final CALCIUM 10/20/2019 9.8 8.4 - 10.3 mg/dL Final ALKALINE PHOSPHATASE 10/20/2019 67 39 - 117 U/L Final TOTAL BILIRUBIN 10/20/2019 0.6 0.0 - 1.2 mg/dL Final AST 10/20/2019 19 0 - 37 U/L Final ALT 10/20/2019 18 0 - 40 U/L Final GLOBULIN 10/20/2019 2.7 1 - 4.8 g/dL Final EGFR 10/20/2019 95 >59 mL/min/1.73m2 Final Estimated glomerular filtration rate calculated using the CKD-EPI equation. ANION GAP 10/20/2019 15 10 - 20 mmol/L Final C REACTIVE PROTEIN 10/20/2019 0.7 0.0 - 4.0 mg/L Final WBC 10/20/2019 6.30 4.00 - 11.00 K/uL Final Note Reference Range updates to all CBC and Differential results. RBC 10/20/2019 3.99 3.72 - 5.30 M/uL Final HGB 10/20/2019 13.5 11.4 - 15.9 g/dL Final Note updated Reference Ranges for all CBC and Differential results. HCT 10/20/2019 39.1 34.2 - 46.8 % Final PLT 10/20/2019 223 140 - 430 K/uL Final MCV 10/20/2019 98.0* 78.0 - 97.0 fL Final MCH 10/20/2019 33.8* 25.0 - 33.0 pg Final MCHC 10/20/2019 34.5 32.0 - 36.0 g/dL Final RDW 10/20/2019 12.6 11.0 - 16.0 % Final MPV 10/20/2019 11.1 8.4 - 12.8 fl Final NRBC 10/20/2019 0.00 0 /100 WBCs Final ABSOLUTE NRBC 10/20/2019 0.00 0 K/uL Final DIFF METHOD 10/20/2019 Auto Final NEUTS 10/20/2019 37.6* 43.0 - 75.0 % Final LYMPHS 10/20/2019 51.9* 18.2 - 47.4 % Final MONOS 10/20/2019 7.8 4.00 - 11.00 % Final EOS 10/20/2019 1.9 0.0 - 8.0 % Final BASOS 10/20/2019 0.6 0.0 - 2.0 % Final Granulocytes, immature (%) 10/20/2019 0.2 0.0 - 0.9 % Final ABSOLUTE NEUTS 10/20/2019 2.37 1.80 - 7.70 K/uL Final ABSOLUTE LYMPHS 10/20/2019 3.27* 1.00 - 3.10 K/uL Final ABSOLUTE MONOS 10/20/2019 0.49 0.20 - 0.80 K/uL Final ABSOLUTE EOS 10/20/2019 0.12 0.00 - 0.80 K/uL Final ABSOLUTE BASOS 10/20/2019 0.04 0.00 - 0.09 K/uL Final Granulocytes, immature 10/20/2019 0.01 0.00 - 0.05 K/uL Final Assessment & Plan (08/25/2019 2:46 PM EDT): Oligoarticular psoriatic arthritis, plaque psoriasis, and sacroiliitis in a patient doing well on combination therapy with methotrexate at 12.5 mg weekly with folic acid rescue and Humira at 40 mg weekly. Using omeprazole as a gastroprotective agent she may take ibuprofen up to 400 mg twice daily as needed. Lab work to be done. Previous lab work reviewed. No visits with results within 3 Month(s) from this visit. Latest known visit with results is: Hospital Outpatient Visit on 03/31/2019 Component Date Value Ref Range Status SODIUM 03/31/2019 139 133 - 146 mmol/L Final POTASSIUM 03/31/2019 4.4 3.3 - 5.1 mmol/L Final CHLORIDE 03/31/2019 102 96 - 108 mmol/L Final CO2 03/31/2019 24 21 - 35 mmol/L Final BUN 03/31/2019 9 6 - 19 mg/dL Final CREATININE 03/31/2019 0.70 0.5 - 1.5 mg/dL Final GLUCOSE 03/31/2019 88 70 - 99 mg/dL Final ALBUMIN 03/31/2019 4.6 3.9 - 4.8 g/dL Final TOTAL PROTEIN 03/31/2019 7.4 6.5 - 8.0 g/dL Final CALCIUM 03/31/2019 9.7 8.4 - 10.3 mg/dL Final ALKALINE PHOSPHATASE 03/31/2019 72 39 - 117 U/L Final TOTAL BILIRUBIN 03/31/2019 0.4 0.0 - 1.2 mg/dL Final AST 03/31/2019 27 0 - 37 U/L Final ALT 03/31/2019 26 0 - 40 U/L Final GLOBULIN 03/31/2019 2.8 1 - 4.8 g/dL Final EGFR 03/31/2019 96 >59 mL/min/1.73m2 Final If patient is black, multiply result by 1.159. Estimated glomerular filtration rate calculated using the CKD-EPI equation. ANION GAP 03/31/2019 17 10 - 20 mmol/L Final C REACTIVE PROTEIN 03/31/2019 0.5 0.0 - 4.0 mg/L Final WBC 03/31/2019 5.08 3.40 - 11.20 K/uL Final RBC 03/31/2019 4.12 3.80 - 4.80 M/uL Final HGB 03/31/2019 13.8 12.0 - 15.0 g/dL Final HCT 03/31/2019 40.1 36.0 - 46.0 % Final PLT 03/31/2019 220 130 - 400 K/uL Final MCV 03/31/2019 97.3 79.0 - 98.0 fL Final MCH 03/31/2019 33.5 27.0 - 34.8 pg Final MCHC 03/31/2019 34.4 31.5 - 36.0 g/dL Final RDW 03/31/2019 12.8 10.8 - 14.6 % Final MPV 03/31/2019 11.6 9.4 - 12.4 fl Final NRBC 03/31/2019 0.00 0.00 /100 WBCs Final ABSOLUTE NRBC 03/31/2019 0.00 0.00 K/uL Final DIFF METHOD 03/31/2019 Auto Final NEUTS 03/31/2019 35.2* 45.30 - 77.70 % Final LYMPHS 03/31/2019 51.8* 12.30 - 39.70 % Final MONOS 03/31/2019 9.4 4.10 - 12.80 % Final EOS 03/31/2019 2.8 0 - 7.2 % Final BASOS 03/31/2019 0.6 0 - 2.80 % Final Granulocytes, immature (%) 03/31/2019 0.2 0.0 - 0.9 % Final ABSOLUTE NEUTS 03/31/2019 1.79 1.40 - 7.70 K/uL Final ABSOLUTE LYMPHS 03/31/2019 2.63 0.60 - 3.20 K/uL Final ABSOLUTE MONOS 03/31/2019 0.48 0.11 - 0.59 K/uL Final ABSOLUTE EOS 03/31/2019 0.14 0.01 - 0.50 K/uL Final ABSOLUTE BASOS 03/31/2019 0.03 0.00 - 0.08 K/uL Final Granulocytes, immature 03/31/2019 0.01 0.00 - 0.05 K/uL Final Assessment & Plan (05/19/2019 12:15 PM EST): Polyarticular erosive psoriatic arthritis and patient doing quite well on combined therapy with low-dose weekly methotrexate at 12.5 mg weekly and Humira at 40 mg weekly. No extra-articular manifestations of disease or toxicity from medications but we did discuss the move towards decreasing the frequency of Humira injections to every 2 weeks once the weather warms. If we are unsuccessful in controlling her disease with the q. two-week dose of Humira and we can experiment with increasing her methotrexate dose or switching her to another biologic agent and we did discuss briefly the potential use of Cosentyx. Hospital Outpatient Visit on 03/31/2019 Component Date Value Ref Range Status SODIUM 03/31/2019 139 133 - 146 mmol/L Final POTASSIUM 03/31/2019 4.4 3.3 - 5.1 mmol/L Final CHLORIDE 03/31/2019 102 96 - 108 mmol/L Final CO2 03/31/2019 24 21 - 35 mmol/L Final BUN 03/31/2019 9 6 - 19 mg/dL Final CREATININE 03/31/2019 0.70 0.5 - 1.5 mg/dL Final GLUCOSE 03/31/2019 88 70 - 99 mg/dL Final ALBUMIN 03/31/2019 4.6 3.9 - 4.8 g/dL Final TOTAL PROTEIN 03/31/2019 7.4 6.5 - 8.0 g/dL Final CALCIUM 03/31/2019 9.7 8.4 - 10.3 mg/dL Final ALKALINE PHOSPHATASE 03/31/2019 72 39 - 117 U/L Final TOTAL BILIRUBIN 03/31/2019 0.4 0.0 - 1.2 mg/dL Final AST 03/31/2019 27 0 - 37 U/L Final ALT 03/31/2019 26 0 - 40 U/L Final GLOBULIN 03/31/2019 2.8 1 - 4.8 g/dL Final EGFR 03/31/2019 96 >59 mL/min/1.73m2 Final If patient is black, multiply result by 1.159. Estimated glomerular filtration rate calculated using the CKD-EPI equation. ANION GAP 03/31/2019 17 10 - 20 mmol/L Final C REACTIVE PROTEIN 03/31/2019 0.5 0.0 - 4.0 mg/L Final WBC 03/31/2019 5.08 3.40 - 11.20 K/uL Final RBC 03/31/2019 4.12 3.80 - 4.80 M/uL Final HGB 03/31/2019 13.8 12.0 - 15.0 g/dL Final HCT 03/31/2019 40.1 36.0 - 46.0 % Final PLT 03/31/2019 220 130 - 400 K/uL Final MCV 03/31/2019 97.3 79.0 - 98.0 fL Final MCH 03/31/2019 33.5 27.0 - 34.8 pg Final MCHC 03/31/2019 34.4 31.5 - 36.0 g/dL Final RDW 03/31/2019 12.8 10.8 - 14.6 % Final MPV 03/31/2019 11.6 9.4 - 12.4 fl Final NRBC 03/31/2019 0.00 0.00 /100 WBCs Final ABSOLUTE NRBC 03/31/2019 0.00 0.00 K/uL Final DIFF METHOD 03/31/2019 Auto Final NEUTS 03/31/2019 35.2* 45.30 - 77.70 % Final LYMPHS 03/31/2019 51.8* 12.30 - 39.70 % Final MONOS 03/31/2019 9.4 4.10 - 12.80 % Final EOS 03/31/2019 2.8 0 - 7.2 % Final BASOS 03/31/2019 0.6 0 - 2.80 % Final Granulocytes, immature (%) 03/31/2019 0.2 0.0 - 0.9 % Final ABSOLUTE NEUTS 03/31/2019 1.79 1.40 - 7.70 K/uL Final ABSOLUTE LYMPHS 03/31/2019 2.63 0.60 - 3.20 K/uL Final ABSOLUTE MONOS 03/31/2019 0.48 0.11 - 0.59 K/uL Final ABSOLUTE EOS 03/31/2019 0.14 0.01 - 0.50 K/uL Final ABSOLUTE BASOS 03/31/2019 0.03 0.00 - 0.08 K/uL Final Granulocytes, immature 03/31/2019 0.01 0.00 - 0.05 K/uL Final Assessment & Plan (01/13/2019 12:25 PM EDT): Oligoarticular psoriatic arthritis and sacroiliitis 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 She understands well the immunosuppressive effect of both methotrexate and Humira. Medications will continue unchanged. Previous lab work was reviewed and I requested a new set of lab work to be done at the beginning of February. She will have a flu vaccine next week. Hospital Outpatient Visit on 12/09/2018 Component Date Value Ref Range Status COLOR 12/09/2018 Yellow Yellow Final CLARITY 12/09/2018 Clear Final GLUCOSE 12/09/2018 Negative Negative Final BILI 12/09/2018 Negative Negative Final KETONES 12/09/2018 Negative Negative Final SPECIFIC GRAVITY 12/09/2018 <1.005 1.005 - 1.030 Final BLOOD 12/09/2018 Trace* Negative Final PH 12/09/2018 6.5 5.0 - 8.0 Final Protein-UA 12/09/2018 Negative Negative Final NITRITE 12/09/2018 Negative Negative Final Leukocyte esterase, ur 12/09/2018 Negative Negative Final 25 OH VIT D (TOTAL) 12/09/2018 28* 30 - 60 ng/mL Final WBC 12/09/2018 5.11 3.40 - 11.20 K/uL Final RBC 12/09/2018 4.18 3.80 - 4.80 M/uL Final HGB 12/09/2018 13.8 12.0 - 15.0 g/dL Final HCT 12/09/2018 41.5 36.0 - 46.0 % Final PLT 12/09/2018 222 130 - 400 K/uL Final MCV 12/09/2018 99.3* 79.0 - 98.0 fL Final MCH 12/09/2018 33.0 27.0 - 34.8 pg Final MCHC 12/09/2018 33.3 31.5 - 36.0 g/dL Final RDW 12/09/2018 12.7 10.8 - 14.6 % Final MPV 12/09/2018 12.4 9.4 - 12.4 fl Final NRBC 12/09/2018 0.00 0.00 /100 WBCs Final ABSOLUTE NRBC 12/09/2018 0.00 0.00 K/uL Final DIFF METHOD 12/09/2018 Auto Final NEUTS 12/09/2018 33.9* 45.30 - 77.70 % Final LYMPHS 12/09/2018 54.4* 12.30 - 39.70 % Final MONOS 12/09/2018 8.4 4.10 - 12.80 % Final EOS 12/09/2018 2.3 0 - 7.2 % Final BASOS 12/09/2018 0.8 0 - 2.80 % Final Granulocytes, immature (%) 12/09/2018 0.2 0.0 - 0.9 % Final ABSOLUTE NEUTS 12/09/2018 1.73 1.40 - 7.70 K/uL Final ABSOLUTE LYMPHS 12/09/2018 2.78 0.60 - 3.20 K/uL Final ABSOLUTE MONOS 12/09/2018 0.43 0.11 - 0.59 K/uL Final ABSOLUTE EOS 12/09/2018 0.12 0.01 - 0.50 K/uL Final ABSOLUTE BASOS 12/09/2018 0.04 0.00 - 0.08 K/uL Final Granulocytes, immature 12/09/2018 0.01 0.00 - 0.05 K/uL Final TSH 12/09/2018 2.70 0.27 - 4.20 uIU/mL Final HDL 12/09/2018 88 mg/dL Final Comment: Interpretation <40 mg/dL: Low HDL cholesterol (major risk factor for CHD) Greater than or equal to 60 mg/dL: High HDL cholesterol ( negative risk factor for CHD) HDL - cholesterol is affected by a number of factors, e.g. smoking, excerise, hormones, sex and age. CHOLESTEROL 12/09/2018 223 0 - 240 mg/dL Final TRIGLYCERIDES 12/09/2018 53 30 - 160 mg/dL Final LDL 12/09/2018 124 50 - 129 mg/dL Final Comment: LDL levels in terms of risk for coronary heart disease: <100 mg/dL: Optimal 100-129 mg/dL: Near or above optimal 130-159 mg/dL: Borderline high 160-189 mg/dL: High >190 mg/dL: Very High CARDIAC RISK RATIO 12/09/2018 2.5* 3.3 - 4.4 Final SODIUM 12/09/2018 139 133 - 146 mmol/L Final POTASSIUM 12/09/2018 4.4 3.3 - 5.1 mmol/L Final CHLORIDE 12/09/2018 102 96 - 108 mmol/L Final CO2 12/09/2018 24 21 - 35 mmol/L Final BUN 12/09/2018 10 6 - 19 mg/dL Final CREATININE 12/09/2018 0.60 0.5 - 1.5 mg/dL Final GLUCOSE 12/09/2018 97 70 - 99 mg/dL Final ALBUMIN 12/09/2018 4.4 3.9 - 4.8 g/dL Final TOTAL PROTEIN 12/09/2018 7.4 6.5 - 8.0 g/dL Final CALCIUM 12/09/2018 9.9 8.4 - 10.3 mg/dL Final ALKALINE PHOSPHATASE 12/09/2018 72 39 - 117 U/L Final TOTAL BILIRUBIN 12/09/2018 0.5 0.0 - 1.2 mg/dL Final AST 12/09/2018 25 0 - 37 U/L Final ALT 12/09/2018 21 0 - 40 U/L Final GLOBULIN 12/09/2018 3.0 1 - 4.8 g/dL Final EGFR 12/09/2018 100 >59 mL/min/1.73m2 Final If patient is black, multiply result by 1.159. Estimated glomerular filtration rate calculated using the CKD-EPI equation. ANION GAP 12/09/2018 17 10 - 20 mmol/L Final Assessment & Plan (10/07/2018 12:08 PM EDT): Excellent control on current medication regimen. She may reduce methotrexate by 2.5 mg every 3 weeks till off and continue on Humira 40 mg every 2 weeks. Ibuprofen along with omeprazole as a gastroprotective agent may be used every 6 hours on an as- needed basis. When she stops the methotrexate she may discontinue folic acid. No visits with results within 3 Month(s) from this visit. Latest known visit with results is: Hospital Outpatient Visit on 06/13/2018 Component Date Value Ref Range Status SODIUM 06/13/2018 140 133 - 146 mmol/L Final CHLORIDE 06/13/2018 103 96 - 108 mmol/L Final POTASSIUM 06/13/2018 4.3 3.3 - 5.1 mmol/L Final CO2 06/13/2018 28 21 - 35 mmol/L Final BUN 06/13/2018 11 6 - 19 mg/dL Final CREATININE 06/13/2018 0.60 0.5 - 1.5 mg/dL Final GLUCOSE 06/13/2018 96 70 - 99 mg/dL Final CALCIUM 06/13/2018 10.0 8.4 - 10.3 mg/dL Final EGFR 06/13/2018 101 >59 mL/min/1.73m2 Final If patient is black, multiply result by 1.159. Estimated glomerular filtration rate calculated using the CKD-EPI equation. ANION GAP 06/13/2018 13 10 - 20 mmol/L Final Assessment & Plan (07/08/2018 3:21 PM EDT): Patient's polyarticular psoriatic arthritis, mild plaque psoriasis sacroiliitis is well controlled without extra articular manifestations on Humira 40 mg weekly and 50 mg of methotrexate weekly with 1 mg of folic acid daily. Sacroiliitis is mild and stable and improved as is her peripheral synovitis in the no signs or symptoms of new enthesitis. She has already had Prevnar 13 pneumococcal vaccine and she is advised to have the Pneumovax 23 vaccine as well. Assessment & Plan (04/01/2018 4:50 PM EST): Patient's recurrent knee effusion which is now small, her bilateral sacroiliitis and temporomandibular joint disorder are all related I believe to polyarticular psoriatic arthritis. She is actually doing much better. We did talk about possibly decreasing methotrexate but first I would like to lengthen out the interval of the Humira to every 2 weeks as she is now doing every week. It has taken several months but I do believe the combination has gradually decreased her pain and stiffness and increased her exercise tolerance and general quality of life without evidence of toxicity. Leave the methotrexate dose unchanged for now. She will have liver function test and C-reactive protein drawn. I reviewed most recent lab work showing a calcium of 9.7 with an AST of 18 and ALT of 17 and an alkaline phosphatase of 75 a C-reactive protein of 1.3 hemoglobin of 13.3 with a hematocrit of 39.4 and a white count of 5500 with a normal differential. Assessment & Plan (10/01/2017 3:19 PM EDT): Polyarticular psoriatic arthritis with sacroiliitis and oligoarticular inflammatory arthritis mostly involving the joints of lower extremity in particular both ankles and left greater than right knees. Good therapeutic response to combination therapy with methotrexate and Humira. No evidence of medication-induced toxicity or extra-articular manifestations of disease. Methotrexate will be increased from 10 mg to 12.5 mg weekly and if well tolerated without cognitive dysfunction or nausea and she may go to 15 mg weekly. Her exam shows that she is still flaring with pain in both ankles with left lateral ankle pain most symptomatic and this will be injected with cortisone today. Her sacroiliitis is stable. Finger to floor measures 1 cm. There is a negative Sheela's maneuver. She understands the need for a high dose flu vaccine when I see her again in December. I reviewed lab work with her done last week showing an alkaline phosphatase of 69, AST 14, AST 11, hemoglobin 12.5, hematocrit 37.8, TSH 0.16, and a clear urinalysis. Lab work will be repeated 3 days prior to her next visit in 3 months. Assessment & Plan (04/23/2017 5:55 PM EST): Patient's continued oligoarticular inflammatory arthritis and enthesopathy with sacroiliitis is compatible with psoriatic arthropathy. She is flaring particularly in her left wrist which she'll be treated with a cortisone injection today. She states that she gets significant relief from the Humira but the effect diminishes after day 10. She had significant side effects with methotrexate including mucositis and alopecia. We talked today about therapeutic options including increasing Humira to weekly dosing, retrying methotrexate, switching to a biologic agent, or leflunomide. Given her history, I will try her for 2 months on Humira 40 mg weekly. I reviewed with her lab work done last month showing a creatinine of 0.7 with a calcium of 9.5 and ALT of 2017 with an AST of 22 and an alkaline phosphatase of 67. All of her questions were answered. Temporomandibular joint disorder 02/24/2013 Overview (05/14/2014): Temporomandibular joint disorder - Disc dislocation; Left Hypothyroidism 02/24/2013 Overview (05/14/2014): Hypothyroidism Encounters Date Type Department Care Team Description 12/29/2024 9:52 AM EDT - 12/29/2024 11:59 PM EDT Hospital Encounter [place] [address] Kayla Ordaz MD Discharge Disposition: Home or Self Care 12/16/2024 Procedure Pass [place] [address] 12/16/2024 Transcribe Orders [facility] [address], [address] [place] [address] aKyla Ordaz MD Palpitations (Primary Dx) 10/20/2024 12:59 PM EDT - 10/20/2024 11:59 PM EDT Hospital Encounter [facility], Bone Density - [facility] [address] [place] [address] Kayla Ordaz MD Discharge Disposition: Home or Self Care from Last 3 Months Immunizations Immunization Administration Dates Next Due Influenza Recombinant Quadrivalent Preservative Free IM 12/31/2017 Family History Medical History Relation Comments Breast cancer Neg Hx Social History Tobacco Use Types Packs/Day Years Used Date Smoking Tobacco: Never Smokeless Tobacco: Never Tobacco Cessation:Counseling Given: Not Answered Alcohol Use Standard Drinks/Week Comments Not Currently [...] on file Sexual Orientation Not on file Last Filed Vital Signs Vital Sign Reading Time Taken Comments Blood Pressure 114/70 09/04/2021 7:59 AM EDT Pulse 75 09/04/2021 7:59 AM EDT Temperature 35.9 C (96.6 F) 12/27/2020 10:28 AM EDT Respiratory Rate 16 09/04/2021 7:59 AM EDT Oxygen Saturation 92% 09/04/2021 7:59 AM EDT Inhaled Oxygen Concentration - - Weight 83.9 kg (185 lb) 06/21/2022 8:03 AM EDT Height 167.6 cm (5' 6 ) 06/21/2022 8:03 AM EDT Body Mass Index 29.86 06/21/2022 8:03 AM EDT Plan of Treatment Upcoming Encounters Date Type Department Care Team (Late st Contact Info) Description 10/14/2025 10:00 AM EDT Office Visit [facility] [address] [facility] [address] [place] [address] Paulina Torrez MD [address] [address] [email or web address] Health Maintenance Due Date Last Done Comments Adult Td,Tdap Booster 1960 DEPRESSION SCREENING 1972 HEPATITIS C SCREENING 1978 HIV ONE-TIME SCREENING (18-65 YEARS) 1978 ZOSTER VACCINES (1 of 2) 07/25/1979 PAP SMEAR 1981 COLOGUARD 2005 FIT TEST 2005 FOBT 2005 SIGMOIDOSCOPY 2005 VIRTUAL COLONOSCOPY 2005 RSV VACCINE (1 - Risk 50-74 years 1-dose series) 2010 PNEUMOCOCCAL VACCINES (50+ years) (2 of 2 - PPSV23) 07/03/2016 05/08/2016 INFLUENZA VACCINE (#1) 2024 12/31/2017 COVID-19 VACCINE ( season) 2024 07/07/2021, 11/15/2020, 05/10/2020, Additional history exists TSH LEVEL 04/14/2025 04/14/2024, 11/0 03/2022, 08/19/2020, Additional history exists MAMMOGRAM 03/10/2026 03/10/2024, 12/23, 12/19/2021, Additional history exists SCREENING FOR DIABETES 04/14/2027 04/14/2024 LIPID PANEL 04/14/2029 04/14/2024, 11/0 03/2022, 04/17/2022, Additional history exists COLONOSCOPY 12/27/2030 12/27/2020 COLORECTAL CANCER SCREENING 12/27/2030 SMOKING STATUS SCREENING (Once After 26 Yrs) Completed 03/10/2024 HEPATITIS A VACCINES Aged Out No long er eligible based on patient's age to complete this topic HIB VACCINES Aged Out No longer eligi ble based on patient's age to complete this topic MENINGOCOCCAL VACCINES (ACWY) Aged Out No longer eligible based on patient's age to complete this topic MENINGOCOCCAL VACCINES (B) Aged Out N o longer eligible based on patient's age to complete this topic Medical Devices Not on file Procedures Procedure Name Priority Date/Time Associated Diagnosis Comments BD DXA AXIAL (SPINE) WITH HIP Routine 10/20/2024 1:16 PM EDT Osteopenia, unspecified location LIPID PANEL Routine 04/14/2024 8:26 AM EST PE (physical exam), routine Hypothyroidism, unspecified type TSH WITH REFLEX Routine 04/14/2024 8:26 AM EST PE (physical exam), routine Hypothyroidism, unspecified type BI MAMMOGRAM SCREENING WITH TOMOSYNTHESIS WITH CAD (BILATERAL) Routine 03/10/2024 12:03 PM EST Breast screening ENDOSCOPY, COLON 12/27/2020 10:0 5 AM EDT from Last 3 Months or Most Recently Relevant to Health Maintenance Results * BD DXA AXIAL (SPINE) WITH HIP (10/20/2024 1:16 PM EDT) Anatomical Region Laterality Modality Bone Density Bone Density 10/20/2024 1:17 PM EDT Impressions 10/21/2024 12:44 PM EDT Interpretation: Osteopenia. Narrative 10/21/2024 12:44 PM EDT Referred By: KAYLA ORDAZ Indications: Osteopenia Scanner: [id number] A with serial# of [id number] located at [facility] Bone Density Scan (DXA) 10/20/24 Details of prior DXA scans are available by clicking View Full Report BMD T- Z- Skeletal Site gm/cm2 score score BMD Change Since Prior Scan ------ ----- ----- PA Spine (L1 L3 L4) 0.845 -1.90 -0.20 0.032 (3.9%)* since 10/16/2022 Total Hip (Left) 0.776 -1.40 -0.20 0.012 (stable) since 10/16/2022 Femoral Neck (Left) 0.638 -1.90 -0.40 0.014 (stable) since 10/16/2022 ------ ----- ----- * Denotes significant change when >= 0.022 g/cm2 for the spine, 0.027 g/cm2 for the total hip, 0.029 g/cm2 for the femoral neck. Interpretation: Osteopenia. Technical Quality: Imaging of all sites was of adequate quality. FRAX: Based on FRAX(r) 3.6 ([place] White female), this patient's likelihood of hip fracture is 1.2% and major osteoporotic fracture is 9.6% over the next 10 years. The patient reported no risks of fracture. Reviewed By: Belle Hoang MD on 10/21/2024 12:44:06 Additional Information: -World Health Organization criteria classify adults based on lowest T-score at PA spine, hip or forearm: Normal (T-score >= -1.0), Osteopenia (T-score between -1 and -2.5), or Osteoporosis (T-score <= -2.5). At [facility], T-scores are compared to peak bone density of a young white gender matched reference population. - For premenopausal women and men under the age of 50, Z-scores (comparison to age, gender, and ethnicity matched reference population) are used: Above expected range for age (Z-score >= 2.0), Within expected range of age (Z-score 1.9 to -1.9), or Below expected range for age (Z-score <= -2.0). - The Bone Health and Osteoporosis Foundation recommends that treatment be considered in men aged more than 50 years and in postmenopausal women with ANY of the following: Prior hip or vertebral fractures; T-score of <= -2.5 at the PA spine or hip; or 10 year fracture probability by FRAX of >= 3% for the hip or >= 20% for major osteoporotic fracture. - The FRAX algorithm (https://www.sourav.ac.uk/FRAX/tool.aspx) is designed to predict 10-year fracture risk in treatment-naive adults between the ages of 40 and 90. It is not intended to be used in those receiving pharmacologic osteoporosis treatment. - The TBS is derived from the texture of the DXA spine image and has been shown to be related to bone microarchitecture and fracture risk. This data provides information independent of BMD value. It adds to fracture risk assessment with a FRAX adjusted for TBS score. If your patient had a TBS and qualified for a FRAX score, the reported FRAX score has been adjusted for TBS. TBS Score Interpretation 1.350 and greater Normal bone microarchitecture 1.200 to 1.350 Partially degraded bone microarchitecture 1.200 and less Degraded bone microarchitecture - Including race/ethnicity in the generation of T- or Z-scores or in the FRAX calculation is complicated, and currently undergoing active review to ensure that we can give patients the best information on their risk of fracture. - Some prior studies may not be compatible with our comparison software. - Click on View Full Report to see subsequent pages with images and prior bone density results. Procedure Note Belle Hoang MD - 10/21/2024 Referred By: KAYLA ORDAZ Indications: Osteopenia Scanner: [id number] A with serial# of [id number] located at [facility] Bone Density Scan (DXA) 10/20/24 Details of prior DXA scans are available by clicking View Full Report BMD T- Z- Skeletal Site gm/cm2 score score BMD Change Since Prior Scan ------ ----- PA Spine (L1 L3 L4) 0.845 -1.90 -0.20 0.032 (3.9%)* since10/16/2022 Total Hip (Left) 0.776 -1.40 -0.20 0.012 (stable) since10/16/2022 Femoral Neck (Left) 0.638 -1.90 -0.40 0.014 (stable) since10/16/2022 ------ ----- * Denotes significant change when >= 0.022 g/cm2 for the spine, 0.027g/cm2 for the total hip, 0.029 g/cm2 for the femoral neck. Interpretation: Osteopenia. Technical Quality: Imaging of all sites was of adequate quality. FRAX: Based on FRAX(r) 3.6 ([place] White female), this patient's likelihoodof hip fracture is 1.2% and major osteoporotic fracture is 9.6% over the next 10 years. The patient reported no risks of fracture. Reviewed By: Belle Hoang MD on 10/21/2024 12:44:06 Additional Information: -World Health Organization criteria classify adults based on lowestT-score at PA spine, hip or forearm: Normal (T-score >= -1.0), Osteopenia (T-score between -1 and -2.5), or Osteoporosis (T-score <= -2.5). At [facility], T-scores are compared to peak bone density of a young white gender matched reference population. - For premenopausal women and men under the age of 50, Z-scores(comparison to age, gender, and ethnicity matched reference population) are used:Above expected range for age (Z-score >= 2.0), Within expected range of age (Z-score 1.9 to -1.9), or Below expected range for age (Z-score <= -2.0). - The Bone Health and Osteoporosis Foundation recommends that treatment be considered in men aged more than 50 years and in postmenopausal women with ANY of the following: Prior hip or vertebral fractures; T-score of <= -2.5 at the PA spine or hip; or 10 year fracture probability by FRAX of >= 3%for the hip or >= 20% for major osteoporotic fracture. - The FRAX algorithm (https://www.sourav.ac.uk/FRAX/tool.aspx) is designed to predict 10-year fracture risk in treatment-naive adultsbetween the ages of 40 and 90. It is not intended to be used in those receiving pharmacologic osteoporosis treatment. - The TBS is derived from the texture of the DXA spine image and has been shown to be related to bone microarchitecture and fracture risk. This data provides information independent of BMD value. It adds to fracture risk assessment with a FRAX adjusted for TBS score. If your patient had a TBSand qualified for a FRAX score, the reported FRAX score has been adjusted for TBS. TBS Score Interpretation 1.350 and greater Normal bone microarchitecture 1.200 to 1.350 Partially degraded bone microarchitecture 1.200 and less Degraded bone microarchitecture - Including race/ethnicity in the generation of T- or Z-scores or in the FRAX calculation is complicated, and currently undergoing active review to ensure that we can give patients the best information on their risk of fracture. - Some prior studies may not be compatible with our comparison software. - Click on View Full Report to see subsequent pages with images andprior bone density results. IMPRESSION: Interpretation: Osteopenia. us Kayla Ordaz MD [facility] [place] BONE DENSITY DEXA Fi nal Result * TSH with reflex (04/14/2024 8:26 AM EST) TSH 1.43 0.27 - 4.20 uIU/mL [facility] Blood 04/14/2024 8:26 AM EST 04/14/2024 8:38 AM EST us Kayla Ordaz MD LAB BLOOD ORDERABLES Final Result [facility] [address] [place] [address] * (ABNORMAL) Lipid panel (04/14/2024 8:26 AM EST) HDL 76 mg/dL [facility] Comment: Interpretation <40 mg/dL: Low HDL cholesterol (major risk factor for CHD) Greater than or equal to 60 mg/dL: High HDL cholesterol ( negative risk factor for CHD) HDL - cholesterol is affected by a number of factors, e.g. smoking, excerise, hormones, sex and age. CHOLESTEROL 219 0 - 240 mg/dL [facility] TRIGLYCERIDES 108 30 - 160 mg/dL [facility] LDL 121 50 - 129 mg/dL [facility] Comment: LDL levels in terms of risk for coronary heart disease: <100 mg/dL: Optimal 100-129 mg/dL: Near or above optimal 130-159 mg/dL: Borderline high 160-189 mg/dL: High >190 mg/dL: Very High CARDIAC RISK RATIO 2.9(L) 3.3 - 4.4 C [facility] Blood 04/14/2024 8:26 AM EST 04/14/2024 8:31 AM EST us Kayla Ordaz MD LAB BLOOD ORDERABLES Final Result Performing Organization Address City/State/[facility] Co de Phone Number [address] [address] * BI MAMMOGRAM SCREENING WITH TOMOSYNTHESIS WITH CAD (BILATERAL) (03/10/2024 12:03 PM EST) Anatomical Region Laterality Modality Breast Left, Breast Right, Breast Bilateral Bila teral Mammography 03/11/2024 9:02 AM EST Impressions 03/11/2024 9:04 AM EST No mammographic evidence of malignancy in either breast. Annual screening mammography is recommended. BI-RADS 1 NEGATIVE The patient will be notified of the results and recommendations. Narrative 03/11/2024 9:04 AM EST BI MAMMOGRAM SCREENING WITH TOMOSYNTHESIS WITH CAD (BILATERAL) Additional patient information: Screening. COMPARISON: Comparison is made with relevant prior imaging. Breast composition: The breast tissue is heterogeneously dense which may obscure small masses. FINDINGS: No abnormal masses, suspicious calcifications, or other significant findings are identified mammographically in either breast. Procedure Note Lorraine Avila MD - 03/11/2024 BI MAMMOGRAM SCREENING WITH TOMOSYNTHESIS WITH CAD (BILATERAL) Additional patient information: Screening. COMPARISON: Comparison is made with relevant prior imaging. Breast composition: The breast tissue is heterogeneously dense which mayobscure small masses. FINDINGS: No abnormal masses, suspicious calcifications, or other significantfindings are identified mammographically in either breast. IMPRESSION: No mammographic evidence of malignancy in either breast. Annual screening mammography is recommended. BI-RADS 1 NEGATIVE The patient will be notified of the results and recommendations. us Kayla Ordaz MD IMG MG EXAMS Final Resul t * ENDOSCOPY, COLON (12/27/2020 10:05 AM EDT) Narrative Transcriptions Everette Baker MD - 12/27/2020 10:05 AM EDT Patient Name: Rozina Bonilla Attending MD:: EVERETTE BAKER MD Procedure Date: 12/27/2020 10:05 AM Date of : 1960 Age: 60 Admit Type: Outpatient Gender: Female Room: [place] [address] Referring MD: KAYLA ORDAZ MD Exam Type: Colonoscopy Indications: Screening for colorectal malignant neoplasm, Last colonoscopy: 2010 Medications: Monitored Anesthesia Care Procedure: Informed consent was obtained from the patient after discussion of the indications, limitations, alternatives, benefits, and risks of the procedure. Risks specifically discussed include but are not limited to medication reactions, missed lesions, bleeding, perforation, or the need for emergentsurgery. Throughout the procedure, the patient's bloodpressure, pulse, end-tidal CO2, and oxygen saturations were monitored continuously. The Olympus adult colonoscope CFQ 180AL #5 was introduced through the anus and advanced to the terminal ileum. The colonoscopy was performedwithout difficulty. The patient tolerated the procedurewell. The quality of the bowel preparation was good. Complications: No immediate complications. Estimated blood loss:None. Findings: The perianal and digital rectal examinations were normal. The rectum, recto-sigmoid colon, sigmoid colon, descending colon, splenic flexure, transverse colon, hepatic flexure, ascending colon, cecum, appendiceal orifice, ileocecal valve, ileum, rectum (on retroflexion) and ascending colon (on retroflexion) appeared normal. A few small-mouthed diverticula were found in the sigmoid colon. Impression: - The rectum, recto-sigmoid colon, sigmoid colon, descending colon, splenic flexure, transverse colon, hepatic flexure, ascending colon, cecum, appendiceal orifice, ileocecal valve and terminal ileum arenormal. - No specimens collected. Recommendation: - Discharge patient to home. - Resume previous diet. - Continue present medications. - Repeat colonoscopy in 10 years for screeningpurposes. - Your colonoscopy was normal with no polyps orcolitis. - You have diverticulosis so please eat a high fiber diet. - You have diverticulosis so please eat a high fiber diet. - You have diverticulosis so please eat a high fiber diet. EVERETTE BAKER MD 12/27/2020 10:26:57 AM This report has been signed electronically. Number of Addenda: 0 Note Initiated On: 12/27/2020 10:05 AM Procedure Code(s): --- Professional --- 94359, Colonoscopy, flexible; diagnostic, including collection of specimen(s) by brushing or washing, when performed (separateprocedure) --- Technical --- 69671, Colonoscopy, flexible; diagnostic, including collection of specimen(s) by brushing or washing, when performed (separateprocedure) Diagnosis Code(s): --- Professional --- Z12.11, Encounter for screening for malignantneoplasm of colon --- Technical --- Z12.11, Encounter for screening for malignantneoplasm of colon CPT copyright 2018 [employer]. All rights reserved. The codes documented in this report are preliminary and upon nightman reviewmay be revised to meet current compliance requirements. Procedure Date: 12/27/2020 10:05:19 AM [address] [place] [address] Kayla Ordaz MD GI PROCEDURE ORDERABLES Fin al Result from Last 3 Months or Most Recently Relevant to Health Maintenance Insurance [facility] [place] [address] [facility] Address: [address] [address] Care Teams Delinquency Prevention Social Worker Relationship Specialty Start Date End Date Kayla Ordaz MD [address] [place] [address] [email or web address] PCP - General 09/21/13 Additional Source Comments The information contained in this document represents components of the legal health record. It is not the complete legal health record.[facility]
--- OUTSIDE RECORDS SUMMARY | 2025-01-19 11:42 | XMS_ITS | Encounter Summary ---
Author Organization [facility] Address [address] [place] [address] Phone Care Team Providers Care Safety Analyst Name Role Phone Kayla Casarez MD Primary Care Provider Encounter Details Date Type Department Care Team (Late Contact Info) Description 12/13/2019 Transcribe Orders Virtual Department [address] [place] [address] Kayla Casarez MD [address] [place], [place] [id number] [email or web address] Pre-procedure lab exam (Primary Dx) Social History Tobacco Use Types [...] 10/14/2025 10:00 AM EDT Office Visit [facility] [place] [facility] [address] [place], [place] [id number] Paulina Torrez MD [address] [facility] [address] [place] [address] [email or web address] documented as of this encounter Visit Diagnoses Diagnosis Pre-procedure lab exam- Primary Pre-procedural laboratory examination documented in this encounter Additional Health Concerns Infection Onset Date Last Indicated Resolved Time CoV-Exposed Comment:Recent close contact documented in the COVID-19 PCR/PRO order 04/19/2020 04/19/2020 05/03/2020 1:[address] CoV-Exposed Comment:Recent close contact documented in the COVID-19 PCR/PRO order 03/19/2021 03/21/2021 04/03/2021 1:[address] documented as of this encounter Care Teams Safety Analyst Relationship Specialty Start Date End Date Kayla Casarez MD [address] [place] [address] [email or web address] PCP - General 09/21/13 documented as of this encounter Additional Source Comments The information contained in this document represents components of the legal health record. It is not the complete legal health record.[facility]
--- OUTSIDE RECORDS SUMMARY | 2025-01-19 11:42 | XMS_ITS | Encounter Summary ---
Author Organization [facility] Address [address] [place] [address] Phone Care Team Providers Care Melt House Drag Operator Name Role Phone Kayla Casarez MD Primary Care Provider [phone] Encounter Details Date Type Department Care Team (Latest Contact Info) Description 06/03/2018 Transcribe Orders [facility] Laboratory [address] [place] [address] Greyson Delgado MD [address] [place] [address], [address] [place] [address] [email or web address] Memory loss (Primary Dx) Social History Tobacco Use Types [...] EDT Office Visit [facility] [place] [facility] [address] [place] [address] Paulina Torrez MD [address] [facility] [address] [place] [address] documented as of this encounter Results * Vitamin B12 (06/03/2018 12:59 PM EDT) VITAMIN B12 460 232 - 1,245 pg/mL [facility] Blood 06/03/2018 12:5 9 PM EDT 06/03/2018 1:04 PM EDT us Greyson Delgado MD LAB BLOOD ORDERABLES Final R esult [address] [address] documented in this encounter Visit Diagnoses Diagnosis Memory loss- Primary documented in this encounter Additional Health Concerns Infection Onset Date Last Indicated Resolved Time CoV-Risk 08/28/2019 08/30/2019 09/11/2019 1:23 AM EDT CoV-Exposed Comment:Recent close contact documented in the COVID-19 PCR/PRO order 04/19/2020 04/19/2020 05/03/2020 1:[address] CoV-Exposed Comment:Recent close contact documented in the COVID-19 PCR/PRO order 03/19/2021 03/21/2021 04/03/2021 1:[address] documented as of this encounter Care Teams Melt House Drag Operator Relationship Specialty Start Date End Date Kayla Casarez MD [address] [place] [id number] [email or web address] PCP - General 09/21/13 documented as of this encounter Additional Source Comments The information contained in this document represents components of the legal health record. It is not the complete legal health record.[facility]
--- OUTSIDE RECORDS SUMMARY | 2025-01-19 11:42 | XMS_ITS | Encounter Summary ---
Author Organization [facility] Address [address] [place] [address] Phone Care Team Providers Care Agency Operator Name Role Phone Kayla Casarez MD Primary Care Provider Encounter Details Date Type Department Care Team (Late st Contact Info) Description 04/19/2020 Transcribe Orders Virtual Department [address] [place] [address] Kayla Casarez MD [address] [place], [place] [phone] [email or web address] Exposure to SARS-associated coronavirus (Primary Dx) Social History Tobacco Use Types [...] EDT Office Visit [facility] [place] [facility] [address] [facility] [facility] [address] [place], [place] [phone] Paulina Torrez MD [address] [facility] [address] [place] [address] [email or web address] documented as of this encounter Results * COVID-19 PCR Order (04/19/2020 11:17 AM EST) COVID Testing Status Specimen received in analyzing lab. Results should be available within 24 to 48 hrs. [facility] Symptomatic? NO [facility] 04/19/2020 11:1 7 AM EST 04/19/2020 1:45 PM EST Kayla Casarez MD BODY FLUIDS AND STOOLS JUAN [facility]LOS [facility]IO Final Result [facility] [address] [place] [address] [facility] [address] [place] [address] documented in this encounter Visit Diagnoses Diagnosis Exposure to SARS-associated coronavirus- Primary documented in this encounter Additional Health Concerns Infection Onset Date Last Indicated Resolved Time CoV-Exposed Comment:Recent close contact documented in the COVID-19 PCR/PRO order 04/19/2020 04/19/2020 05/03/2020 1:[address] CoV-Exposed Comment:Recent close contact documented in the COVID-19 PCR/PRO order 03/19/2021 03/21/2021 04/03/2021 1:[address] documented as of this encounter Care Teams Agency Operator Relationship Specialty Start Date End Date Kayla Casarez MD [address] [place] [address] [email or web address] PCP - General 09/21/13 documented as of this encounter Additional Source Comments The information contained in this document represents components of the legal health record. It is not the complete legal health record.[facility]
--- OUTSIDE RECORDS SUMMARY | 2025-01-19 11:42 | XMS_ITS | Encounter Summary ---
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 [place] [address] [email or web address] documented as of this encounter Results * (ABNORMAL) Urinalysis (08/27/2017 10:37 AM EDT) COLOR STRAW(A) Yellow [facility] CLARITY Clear [facility] GLUCOSE Negative Negative [facility] BILI Negative Negative [facility] KETONES Negative Negative [facility] SPECIFIC GRAVITY 1.010 1.005 - 1.030 [facility] BLOOD Negative Negative [facility] PH 7.5 5.0 - 8.0 [facility] Protein-UA Negative Negative [facility] NITRITE Negative Negative [facility] Leukocyte esterase, ur Negative Negative [facility] Urine (Urine) 08/27/2017 10: 37 AM EDT 08/27/2017 10:59 AM EDT Kayla Casarez MD URINE ORDERABLES Final Resu lt Performing Organization Address City/State/[facility] Co de Phone Number [address] [address] * CBC (08/27/2017 10:37 AM EDT) WBC 5.94 3.40 - 11.20 K/uL [facility] RBC 4.08 3.80 - 4.80 M/uL [facility] HGB 12.5 12.0 - 15.0 g/dL [facility] HCT 37.8 36.0 - 46.0 % [facility] PLT 260 130 - 400 K/uL [facility] MCV 92.6 79.0 - 98.0 fL [facility] MCH 30.6 27.0 - 34.8 pg [facility] MCHC 33.1 31.5 - 36.0 g/dL [facility] RDW 13.7 10.8 - 14.6 % [facility] MPV 11.1 9.4 - 12.4 [facility] NRBC 0.00 /100 WBCs [facility] ABSOLUTE NRBC 0.00 K/uL [facility] Blood 08/27/2017 10:3 7 AM EDT 08/27/2017 10:43 AM EDT us Kayla Casarez MD LAB BLOOD ORDERABLES Final Result [address] [address] * TSH with reflex (08/27/2017 10:37 AM EDT) TSH 3.16 0.27 - 4.20 uIU/mL [facility] Blood 08/27/2017 10:3 7 AM EDT 08/27/2017 10:43 AM EDT Kayla Casarez MD LAB BLOOD ORDERABLES Final Result Performing Organization Address [facility] Co de Phone Number [address] [address] * (ABNORMAL) Lipid panel (08/27/2017 10:37 AM EDT) HDL 81 mg/dL [facility] Comment: Interpretation: Risk Level Females Decreased >55mg/dL Average 50-55 mg/dL Increased <50 mg/dL CHOLESTEROL 194 0 - 240 mg/dL [facility] TRIGLYCERIDES 72 30 - 160 mg/dL [facility] LDL 99 50 - 129 mg/dL [facility] Comment: LDL levels in terms of risk for coronary heart disease: <100 mg/dL: Optimal 100-129 mg/dL: Near or above optimal 130-159 mg/dL: Borderline high 160-189 mg/dL: High >190 mg/dL: Very High CARDIAC RISK RATIO 2.4(L) 3.3 - 4.4 [facility] Blood 08/27/2017 10:3 7 AM EDT 08/27/2017 10:43 AM EDT us Kayla Casarez MD LAB BLOOD ORDERABLES Final Result Performing Organization Address [facility]/ZIP Co de Phone Number [address] [address] * Comprehensive metabolic panel (08/27/2017 10:37 AM EDT) SODIUM 140 133 - 146 mmol/L [facility] POTASSIUM 4.5 3.3 - 5.1 mmol/L [facility] CHLORIDE 102 96 - 108 mmol/L [facility] CO2 26 21 - 35 mmol/L [facility] BUN 10 6 - 19 mg/dL [facility] CREATININE 0.60 0.5 - 1.5 mg/dL [facility] GLUCOSE 88 70 - 99 mg/dL [facility] ALBUMIN 4.1 3.9 - 4.8 g/dL [facility] TOTAL PROTEIN 7.3 6.5 - 8.0 g/dL [facility] CALCIUM 9.3 8.4 - 10.3 mg/dL [facility] ALKALINE PHOSPHATASE 69 39 - 117 U/L [facility] TOTAL BILIRUBIN 0.3 0.0 - 1.2 mg/dL [facility] AST 14 0 - 37 U/L [facility] ALT 11 0 - 40 U/L [facility] GLOBULIN 3.2 1 - 4.8 g/dL [facility] EGFR 101 >59 mL/min/1.7 3m2 [facility] Comment:If patient is black, multiply result by 1.159. The eGFR calculation has changed from the MDRD equation to the CKD-EPI equation as of May 27, 2017. ANION GAP 17 10 - 20 mmol/L [facility] Blood 08/27/2017 10:3 7 AM EDT 08/27/2017 10:43 AM EDT Kayla Casarez MD LAB BLOOD ORDERABLES Final Result Performing Organization Address City/State/[facility] Co de Phone Number [address] [address] documented in this encounter Visit Diagnoses Diagnosis Routine general medical examination at a health care facility- Primary Myxedema heart disease Unspecified hypothyroidism documented in this encounter Additional Health Concerns Infection Onset Date Last Indicated Resolved Time CoV-Risk 08/28/2019 08/30/2019 09/11/2019 1:23 AM EDT CoV-Exposed Comment:Recent close contact documented in the COVID-19 PCR/PRO order 04/19/2020 04/19/2020 05/03/2020 1:[address] CoV-Exposed Comment:Recent close contact documented in the COVID-19 PCR/PRO order 03/19/2021 03/21/2021 04/03/2021 1:[address] documented as of this encounter Care Teams Billet Straightener Relationship Specialty Start Date End Date Kayla Casarez MD [address] [place] [id number] [email or web address] PCP - General 09/21/13 documented as of this encounter Additional Source Comments The information contained in this document represents components of the legal health record. It is not the complete legal health record.[facility]
--- OUTSIDE RECORDS SUMMARY | 2025-01-19 11:42 | XMS_ITS | Encounter Summary ---
Author Organization [facility] Address [facility] [employer] [facility] [address] [place] [address] Phone Care Team Providers Care Mri Assistant Name Role Phone Kayla Casarez MD Primary Care Provider Encounter Details Date Type Department Care Team (Late Contact Info) Description 11/12/2023 Procedure Pass [facility], [facility] [address] [place] [address] Social History Tobacco Use Types Packs/Day Years [...] Description 10/14/2025 10:00 AM EDT Office Visit [facility] [address] [facility] [address] [place] [address] Paulina Torrez MD 15 [facility] [address] [place] [address] [email or web address] documented as of this encounter Visit Diagnoses Not on filedocumented in this encounter Care Teams Mri Assistant Relationship Specialty Start Date End Date Kayla Casarez MD [address] [place] [address] [email or web address] PCP - General 09/21/13 documented as of this encounter Additional Source Comments The information contained in this document represents components of the legal health record. It is not the complete legal health record.[facility]
--- OUTSIDE RECORDS SUMMARY | 2025-01-19 11:42 | XMS_ITS | Patient Health Record ---
Author Organization [facility] de[place] Address [address] [facility] [place] [address] Care Team Providers Care Band Instrument Repairer Name Role Phone Kayla Casarez MD Primary Care Provider Cami Biswas Unavailable [phone] Sabine Toledo Unavailable [phone] Allergies Allergen (clinical drug ingredient) Drug/Non Drug Allergy documented on EMR Reaction Allergy Type Onset Date Status amoxicillin Amoxicillin hives Drug Allergy Act truner shrimp allergenic extract Shrimp (Diagnostic) Unknown Drug Allergy Active Reason For Referral No Information Medications Medication SIG (Take, Route, Frequency, Duration) Notes Start Date End Date Status Levothyroxine Sodium 50 MCG 1 tablet on an empty stomach in the morning Orally Once a day; Duration: 30 day(s) Active Methotrexate Sodium 15 MG as directed Orally Not-Taking Night Splint AFO - L1930 as directed 04/22/2018 Not-Taking Enbrel 50 MG/ML 1 mL Subcutaneous Active Humira 10 MG/0.2ML as directed Subcutaneous Not-Taking Immunizations Vaccine Route Administration Date Status Comme nts Influenza Unknown 12/22/2020 Administered Influenza Unknown 11/23/2023 Administered COVID-19 Moderna Vaccine Unknown 11/22/2020 Administered 1st 04/09/2020 2st 05/08/2020 Social History Tobacco Use: Social History Observation Description Date Details (start date - stop date) Never Smoker NA - NA Alcohol Screen Question Answer Notes Did you have a drink containing alcohol in the p ast year? No Points 0 Interpretation Negative Tobacco use other than smoking: Question Answer Notes Are you an other tobacco user? No Tobacco Control (Standard) Question Answer Notes Tobacco use: Nonsmoker Additional Findings: Tobacco non-user Current no nsmoker AUDIT-C (Standard) Question Answer Notes Did you have a drink containing alcohol in the p ast year? No Points 0 Interpretation Negative Problems Problem Type SNOMED Code ICD Code Onset Dates Problem Status W/U Status Risk Notes Problem Plantar wart (79596277) Plantar wart (B07.0) Active confirmed Problem Chronic pain (58765366) Other chronic pain (G89.29) Active confirmed Problem Psoriatic arthritis (564587775) Psoriatic arthritis (L40.50) Active confirmed Vital Signs Blood pressure diastolic 70 mm Hg 12/08/2024 Height 66 in 12/08/2024 Blood pressure systolic 120 mm Hg 12/08/2024 Weight 183 lbs 12/08/2024 BMI 29.53 kg/m2 12/08/2024 Procedures Procedure Date Ordered Date Performed Result Body Sit e 64202-Ymox Destruction, 1-14 02/18/2024 N/A Encounters Encounter Location Date Provider Diagnosis [address] [address] 02/18/2024 Cami Murray Right foot pain M79.671 and Plantar wart B07.[address] [address] 06/09/2024 Sabine Perica Right foot pain M79.671 and Plantar wart B07.[address] [address] 09/08/2024 Sabine Perica Right foot pain M79.671 and Plantar wart B07.[address] [address] 12/08/2024 Sabine Perica Right foot pain M79.671 and Plantar wart B07.[address] [address] 02/18/2024 Cami Murray [address] [address] 04/28/2024 Cami Murray [address] [phone] Cami Murray [facility] [address] [place] [address] 06/09/2024 Cami Murray Assessments Encounter Date Diagnosis (ICD Code) Assessment Notes Treatment Notes Treatment Clinical Notes Section Notes 02/18/2024 Right foot pain (ICD-10 - M79.671) 06/09/2024 Right foot pain (ICD-10 - M79.671) 09/08/2024 Right foot pain (ICD-10 - M79.671) 12/08/2024 Right foot pain (ICD-10 - M79.671) 02/18/2024 Plantar wart (ICD-10 - B07.0) 12/08/2024 Plantar wart (ICD-10 - B07.0) 09/08/2024 Plantar wart (ICD-10 - B07.0) 06/09/2024 Plantar wart (ICD-10 - B07.0) Plan Of Treatment Pending Test Test Name Order Date X ray : Foot, left 3V 04/22/2018 X ray : Foot, right 3V 04/22/2018 [id number]-Qeed Destruction, 1-14 03/31/2019 [id number]-Fyee Destruction, 1-14 02/18/2024 Next Appt Details Provider Name:Sabine hancock, 03/23/2025 09:15:00 AM, [address] [place], [address], Insurance Providers Payer Name Payer Address Payer Phone Subscriber Number Group Number Insured Name Patient Relationship to Insured Coverage Start Date Coverage End Date [facility] [address] [place] [address] [id number] Rozina Bonilla Self - patient is the insured Medical (General) History Medical History History ICD Code Arthritis thyroid Psoriatic arthritis Surgical History Surgery Date(Month/Year) umbilical hernia rt hernia
--- OUTSIDE RECORDS SUMMARY | 2025-01-19 11:43 | XMS_ITS | Encounter Summary ---
Author Organization [facility] Address [address] [place] [address] Phone Care Team Providers Care Pilot Plant Supervisor Name Role Phone Kayla Casarez MD Primary Care Provider Encounter Details Date Type Department Care Team (Late st Contact Info) Description 11/27/2023 Community Orders [facility] Kayla Casarez MD [address] [place] [address] [email or web address] Social History Tobacco Use Types Packs/Day Years [...] 10/14/2025 10:00 AM EDT [facility] [address] [facility] [address] [place] [address] Paulina Torrez MD 15 [facility] [address] [place] [address] [email or web address] documented as of this encounter Visit Diagnoses Not on filedocumented in this encounter Care Teams Pilot Plant Supervisor Relationship Specialty Start Date End Date Kayla Casarez MD [address] [place] [phone] [email or web address] PCP - General 09/21/13 documented as of this encounter Additional Source Comments The information contained in this document represents components of the legal health record. It is not the complete legal health record.[facility]
--- OUTSIDE RECORDS SUMMARY | 2025-01-19 11:43 | XMS_ITS | Encounter Summary ---
Author Organization [facility] Address [address] [place] [address] Phone Care Team Providers Care Relationship Specialist Name Role Phone Kayla Casarez MD Primary Care Provider Encounter Details Date Type Department Care Team ([facility] Contact Info) Description 11/12/2023 Transcribe Orders Virtual Department 30 [place] [address] Kayla Casarez MD 15 [place], [place] [phone] [email or web address] Breast screening (Primary Dx) Social History Tobacco Use Types [...] 10/14/2025 10:00 AM EDT Office Visit [facility] 15 [facility] [address] [place] [address] Paulina Torrez MD 15 [facility] [address] [place] [address] documented as of this encounter Results * [...] of the results and recommendations. us Kayla Casarez MD IMG MG EXAMS Final Resul t documented in this encounter Visit Diagnoses Diagnosis Breast screening- Primary Breast screening, unspecified Breast screening Breast screening, unspecified documented in this encounter Care Teams Relationship Specialist Relationship Specialty Start Date End Date Kayla Casarez MD [address] [place] [address] [email or web address] PCP - General 09/21/13 documented as of this encounter Additional Source Comments The information contained in this document represents components of the legal health record. It is not the complete legal health record.[facility]
--- OUTSIDE RECORDS SUMMARY | 2025-01-19 11:43 | XMS_ITS | Encounter Summary ---
Author Organization [facility] Address [address] [place] [address] Phone Care Team Providers Care Librarian Special Library Name Role Phone Poly Casarez MD Primary Care Provider Encounter Details Date Type Department Care Team (Late st Contact Info) Description 11/03/2023 Transcribe Orders Virtual Department 30 [place] [address] Poly Casarez MD 15 [place], [place] [phone] [email or web address] Osteopenia, unspecified location (Primary Dx) Social History Tobacco Use [...] 10/14/2025 10:00 AM EDT Office Visit [facility] [place] [facility] 15 [facility] [address] [place] [address] Paulina Torrez MD 15 [facility] [address] [place] [address] [email or web address] documented as of this encounter Results * BD DXA AXIAL (SPINE) WITH HIP (10/20/2024 1:16 PM EDT) Anatomical Region Laterality Modality Bone Density Bone Density 10/20/2024 1:17 PM EDT Impressions 10/21/2024 12:44 PM EDT Interpretation: Osteopenia. Narrative 10/21/2024 12:44 PM EDT Referred By: POLY CASAREZ Indications: Osteopenia Scanner: Cask A with serial# of [id number] located at [facility] Bone Density Scan (DXA) 10/20/24 Details [...] -2.5), or Osteoporosis (T-score <= -2.5). At [facility], T-scores are compared to peak bone [...] Belle Hoang MD - 10/21/2024 Referred By: POLY CASAREZ Indications: Osteopenia Scanner: Cask A with serial# of [id number] located at [facility] Bone Density Scan (DXA) 10/20/24 Details [...] -2.5), or Osteoporosis (T-score <= -2.5). At [facility], T-scores are compared to peak bone [...] andprior bone density results. IMPRESSION: Interpretation: Osteopenia. Poly Casarez MD IMG BD BONE DENSITY DEXA Fi nal Result documented in this encounter Visit Diagnoses Diagnosis Osteopenia, unspecified location- Primary Osteopenia, unspecified location documented in this encounter Care Teams Librarian Special Library Relationship Specialty Start Date End Date Poly Casarez MD [address] [place] [phone] [email or web address] PCP - General 09/21/13 documented as of this encounter Additional Source Comments The information contained in this document represents components of the legal health record. It is not the complete legal health record.[facility]
== END 2025-01-19 10:21 | disposition home or self-care (01) ==
LOC: HO.HGI 09:48
PROVIDERS: PCP Internal Medicine; Visit Provider Nurse Practitioner Family
DX: R74.01 Elevation of levels of liver transaminase levels (principal); K76.0 Fatty (change of) liver, not elsewhere classified
CPT/HCPCS: 99204

== ENCOUNTER 2025-02-16 09:38 | Outpatient (AMB) | payer OTHER, SELFPAY ==
--- OUTSIDE RECORDS SUMMARY | 2024-04-28 07:30 | XMS_ITS ---
Author Organization [facility] Address [address] [place] [address] Care Team Providers Care Cleat Layer Name Role Phone Hermelindo SABA, Kayla Primary Care Provider JaelynvaCami Rollins Unavailable [phone] Encounters Encounter Location Date Provider Diagnosis [address] [address] 04/28/2024 Cami Murray Plan Of Treatment Next Appt Details Provider Name:Sabine hancock, 03/23/2025 09:15:00 AM, [address] [place] [address], [address], Progress Notes * Rozina BONILLA ADOB:[birth year] (64 yo F)Acc No.[id number]:04/28/2024 Progress Notes Patient: Rozina ARNOLD Provider: Mary Beth Murray DPM :1960 A ge:63 Y S ex:Female Date:04/28/2024 [address] Pcp:Kayla Casarez MD Subjective: * Chief Complaints: * * Medical History: Objective: * Vitals: Assessment: Plan: * Treatment: * Images: * The named appointment provid er may or may not be the originator of this progress note, and it is not deemed complete until electronically signed by the appointment provider. Sign off status: Pending * Provider: Mary Beth Murray DPM Date: 0 04/28/2024 Generated for Nessa gallegos/Reji/Justyn on: 04/18/2024 10:57 AM EST
[2025-02-16 09:46] VITALS: BP 120/90; PULSE 68; O2SAT 98; BMI 29.8
--- NOTE | 2025-02-16 09:46 | MHC.OFFVIS ---
Vital Signs 02/16/25 09:46 Height 5 ft 6 in Weight 184 lb 11.958 oz BMI 29.8 BP 120/90 H Blood Pressure Location Lt brachial Position Sitting Pulse 68 Pulse Source Pulse Oximeter Pulse Oximetry (%) 98 Oxygen Delivery Method Room Air Intake Visit Reasons: 3 months Intake Note: Patient presents for CTS and Arthritis. Accompanied by: Self / Same As Patient Allergies Penicillins Allergy (Mild, Verified 02/16/25 09:46) Hives HPI HPI 3 months: Details: Enbrel is helping. 85% relief with joint pain. She stopped wearing ankle support braces all the time. She only uses it as needed for support. Recently she had a dental exam and was told that her jaw bone is thinning. Injection reaction has improved. Using ice pretreatment and post treatment with topical clobetasol once when she sees a circular lesion. The circular lesion/injection site reaction is smaller in size than it was prior. She has pruritus associated with the injection site reaction relieved with topical clobetasol. Morning stiffness is lasting 30 minutes [facility] Medical History Hypothyroidism (acquired) Psoriatic arthritis Family History (Updated 02/16/25 @ 09:49 by Sonya Amaro CMA) Mother Scleroderma Lung cancer Physical Exam Vital Signs: Last Vital Signs Pulse 68 02/16/25 09:46 BP 120/90 H 02/16/25 09:46 Pulse Ox 98 02/16/25 09:46 Oxygen Delivery Method Room Air 02/16/25 09:46 BMI result Body Mass Index 29.8 Const Other: General: Comfortable CVS: RRR Respiratory: clear to auscultation bilaterally. Good respiratory effort Skin: No lesions seen MSK: No tenderness of upper extremities. Normal range of motion of upper extremities and lower extremities. Mild ankle synovitis bilateral with tenderness on palpation. No MTP tenderness. No dactylitis. Assessment & Plan Assessment & Plan (1) Psoriatic arthritis: Comment: Improved control on Enbrel. She continues to have injection site reaction but it has improved with icing and using topical clobetasol. Rheumatology history: Diagnosis of psoriatic arthritis sine psoriasis 2015. HLA B27 positive. Presenting with oligoarthritis. Methotrexate started 2015. High dose methotrexate and subcutaneous with preservatives causes tinnitus. Humira started 2015 changed to weekly 2019 to present. Leflunomide was added 2023 and discontinued due to feeling unwell, dizziness and transaminitis. After discontinuing methotrexate transaminitis resolved. Enbrel started September 2024. She has nonalcoholic fatty liver disease on ultrasound 09/2024. Dental exam 2024 revealed jaw bone is thinning -cautiously use steroids. Code(s): L40.50 - Arthropathic psoriasis, unspecified Category: Medical Plan: Continue Enbrel 50 mg subcutaneous injection once weekly. She will ice area 15 minutes before and after injection. She will use Benadryl 25 mg OTC 30 minutes before injection. She will continue to use topical clobetasol for injection site reaction. If she continues to have injection site reaction, she will call office. I will then process PA for Enbrel syringe Labs for drug monitoring on high-risk medication due today Return to clinic in 3 months (2) Other remote computer terminal operator (current) drug therapy: Code(s): Z79.899 - Other remote computer terminal operator (current) drug therapy Category: Medical Plan: See above (3) Hepatic steatosis: Code(s): K76.0 - Fatty (change of) liver, not elsewhere classified Category: Medical Plan: Encouraged weight loss with healthy eating and exercise Orders: Orders Alanine Aminotransferase Today Z79.899 - Other alf (current) drug therapy C Reactive Protein Today Z79.899 - Other remote computer terminal operator (current) drug therapy Complete Blood Count Auto Diff Today Z79.899 - Other remote computer terminal operator (current) drug therapy Aspartate Amino Transferase Today Z79.899 - Other remote computer terminal operator (current) drug therapy Creatinine Today Z79.899 - Other alf (current) drug therapy Erythrocyte Sedimentation Rate Today Z79.899 - Other remote computer terminal operator (current) drug therapy Coding Level of Care Code Est Pt Level 4 (99151) Complex visit Add On G2211 Diagnoses Psoriatic arthritis L40.50 Other alf (current) drug therapy Z79.899 Hepatic steatosis K76.0
--- OUTSIDE RECORDS SUMMARY | 2025-02-16 10:57 | XMS_ITS | Encounter Summary ---
Author Organization [facility] Address [address] [place] [address] Phone Care Team Providers Care Repair Armature Winder Helper Name Role Phone Kayla Casarez MD Primary Care Provider Encounter Details Date Type Department Care Team (Late st Contact Info) Description 03/30/2021 Transcribe Orders Virtual Department [address] [place] [address] Kayla Casarez MD [address] [place] [phone] [email or web address] Encounter for laboratory testing for COVID-19 virus [...] Department Care Team (Late Contact Info) Description 01/25/2025 Procedure Pass [address] [address] 10/12/2025 11:00 AM EDT Appointment [address] [address] Kayla Casarez MD 15 [place] [address] 10/14/2025 10:00 AM EDT Office Visit [facility] Primary [facility] 15 [facility] [address] [place] [address] Paulina Torrez MD 15 [facility] [address] [place] [address] [email or web address] documented as of this encounter Results * COVID-19 PCR Order (04/01/2021 2:14 PM EST) COVID Testing Status Specimen received in analyzing lab. Results should be available within 24 to 48 hrs. [facility] Symptomatic? NO [facility] Other 04/01/2021 2:14 PM EST 04/01/2021 5:26 PM EST Kayla Casarez MD LAB GENERAL ORDERABLES Adali l Result [facility] [address] [place] [address] [facility] [address] [place] [address] documented in this encounter Visit Diagnoses Diagnosis Encounter for laboratory testing for COVID-19 virus- Primary documented in this encounter Additional Health Concerns Infection Onset Date Last Indicated Resolved Time CoV-Exposed Comment:Recent close contact documented in the COVID-19 PCR/PRO order 03/19/2021 03/21/2021 04/03/2021 1:[address] documented as of this encounter Care Teams Repair Armature Winder Helper Relationship Specialty Start Date End Date Kayla Casarez MD 15 [place] [address] [email or web address] PCP - General 09/21/13 documented as of this encounter Additional Source Comments The information contained in this document represents components of the legal health record. It is not the complete legal health record.[facility]
--- OUTSIDE RECORDS SUMMARY | 2025-02-16 10:57 | XMS_ITS | Encounter Summary ---
Author Organization [facility] Address formerly [facility] [employer] [address] [address] Phone Care Team Providers Care Composite Boat Builder Name Role Phone Kayla Casarez MD Primary Care Provider Encounter Details Date Type Department Care Team (Late st Contact Info) Description 01/22/2023 Transcribe Orders [facility] [address] [place] [address] Kayla Casarez MD 15 [place], [place] [phone] [email or web address] Routine general medical examination at a health [...] Care Team (Late st Contact Info) Description 01/25/2025 Procedure Pass [address] [address] 10/12/2025 11:00 AM EDT Appointment [address] [address] Kayla Casarez MD [address] [place] [address] [email or web address] 10/14/2025 10:00 AM EDT Office Visit [facility] [place] [facility] [address] [address] Paulina Torrez MD [address] [address] [email or web address] documented as of this encounter Results * 25-OH vitamin D (01/22/2023 9:00 AM EDT) 25 OH VIT D (TOTAL) 32 30 - 60 ng/mL [facility] Blood 01/22/2023 9:00 AM EDT 01/22/2023 9:11 AM EDT us Kayla Casarez MD LAB BLOOD BKR ORDERABLES Fi nal Result [address] [address] * TSH with reflex (01/22/2023 9:00 AM EDT) TSH 2.49 0.27 - 4.20 uIU/mL [facility] Blood 01/22/2023 9:00 AM EDT 01/22/2023 9:11 AM EDT us Kayla Casarez MD LAB BLOOD BKR ORDERABLES Fi nal Result Performing Organization Address [facility] Co de Phone Number [address] [address] * (ABNORMAL) Lipid panel (01/22/2023 9:00 AM EDT) HDL 92 mg/dL [facility] Comment: Interpretation <40 mg/dL: Low HDL cholesterol (major risk factor for CHD) Greater than or equal to 60 mg/dL: High HDL cholesterol ( negative risk factor for CHD) HDL - cholesterol is affected by a number of factors, e.g. smoking, excerise, hormones, sex and age. CHOLESTEROL 235 0 - 240 mg/dL [facility] TRIGLYCERIDES 88 30 - 160 mg/dL [facility] LDL 125 50 - 129 mg/dL [facility] Comment: LDL levels in terms of risk for coronary heart disease: <100 mg/dL: Optimal 100-129 mg/dL: Near or above optimal 130-159 mg/dL: Borderline high 160-189 mg/dL: High >190 mg/dL: Very High CARDIAC RISK RATIO 2.6(L) 3.3 - 4.4 [facility] Blood 01/22/2023 9:00 AM EDT 01/22/2023 9:11 AM EDT Kayla Casarez MD LAB BLOOD BKR ORDERABLES Fi nal Result Performing Organization Address [facility] Co de Phone Number [address] [address] documented in this encounter Visit Diagnoses Diagnosis Routine general medical examination at a health care facility- Primary Hypothyroidism, unspecified type Low vitamin D level documented in this encounter Care Teams Composite Boat Builder Relationship Specialty Start Date End Date Kayla Casarez MD [address] [place] [address] [email or web address] PCP - General 09/21/13 documented as of this encounter Additional Source Comments The information contained in this document represents components of the legal health record. It is not the complete legal health record.[facility]
--- OUTSIDE RECORDS SUMMARY | 2025-02-16 10:57 | XMS_ITS | Encounter Summary ---
Author Organization [facility] Address [address] [facility] [address] [place] [address] Phone Care Team Providers Care Parking Supervisor Name Role Phone Kayla Casarez MD Primary Care Provider [phone] Encounter Details Date Type Department Care Team (Late st Contact Info) Description 04/07/2019 Ancillary Orders Virtual Department [address] [place] [address] Charmaine Fernández MD [address] [place] [address] Drive [address] [place] [address] Visit for screening mammogram Social [...] st Contact Info) Description 01/25/2025 Procedure Pass [address] [address] 10/12/2025 11:00 AM EDT Appointment [address] [address] Kayla Casarez MD 15 [place] [address] 10/14/2025 10:00 AM EDT Office Visit [facility] [place] Primary [facility] 15 [facility] [address] [place] [address] Paulina Torrez MD 15 [facility] [address] [place] [address] documented as of this encounter Results * [...] obscure a lesion on mammography. POS - [id number] Narrative 10/20/2019 2:47 PM EDT Bilateral mammography [...] documented as of this encounter Care Teams Parking Supervisor Relationship Specialty Start Date End Date Kayla Casarez MD [address] [place] [address] PCP - General 09/21/13 documented as of this encounter Additional Source Comments The information contained in this document represents components of the legal health record. It is not the complete legal health record.[facility]
--- OUTSIDE RECORDS SUMMARY | 2025-02-16 10:57 | XMS_ITS | Encounter Summary ---
Author Organization [facility] Address [address] [place] [address] Phone Care Team Providers Care Retail Team Leader Name Role Phone Kayla Casarez MD Primary Care Provider Encounter Details Date Type Department Care Team (Late st Contact Info) Description 03/21/2021 Transcribe Orders Virtual Department [address] [place] [address] Kayla Casarez MD [address] [place] [phone] [email or web address] Encounter for laboratory testing for COVID-19 virus [...] (Late Contact Info) Description 01/25/2025 Procedure Pass [address] [address] 10/12/2025 11:00 AM EDT Appointment [address] [address] Kayla Casarez MD 15 [place] [address] 10/14/2025 10:00 AM EDT Office Visit [facility] [place] [facility] 15 [facility] [address] [place] [address] Paulina Torrez MD 15 [facility] [address]. [address] [place] [address] [email or web address] documented as of this encounter Results * COVID-19 PCR Order (03/22/2021 3:00 PM EST) COVID Testing Status In-house testing being performed [facility] Symptomatic? NO [facility] Other 03/22/2021 3:00 PM EST 03/22/2021 6:32 PM EST us Kayla Casarez MD LAB GENERAL ORDERABLES Adali l Result [facility] 30 [place] [address] documented in this encounter Visit Diagnoses Diagnosis Encounter for laboratory testing for COVID-19 virus- Primary documented in this encounter Additional Health Concerns Infection Onset Date Last Indicated Resolved Time CoV-Exposed Comment:Recent close contact documented in the COVID-19 PCR/PRO order 03/19/2021 03/21/2021 04/03/2021 1:[address] documented as of this encounter Care Teams Retail Team Leader Relationship Specialty Start Date End Date Kayla Casarez MD 15 [place] [address] PCP - General 09/21/13 documented as of this encounter Additional Source Comments The information contained in this document represents components of the legal health record. It is not the complete legal health record.[facility]
--- OUTSIDE RECORDS SUMMARY | 2025-02-16 10:57 | XMS_ITS | Encounter Summary ---
Author Organization [facility] Address [address] [place] [address] Phone Care Team Providers Care Gummed Tape Press Operator Name Role Phone Kayla Casarez MD Primary Care Provider Encounter Details Date Type Department Care Team (Late st Contact Info) Description 07/16/2017 Ancillary Orders [facility], X-Ray - [address] [address] Kayla Casarez MD [address] [place] [address] [email or web address] Pain Social History Tobacco Use Types Packs/Day [...] st Contact Info) Description 01/25/2025 Procedure Pass [address] [address] 10/12/2025 11:00 AM EDT Appointment [address] [address] Kayla Casarez MD 15 [place] [address] 10/14/2025 10:00 AM EDT Office Visit [facility] [place] [facility] 15 [facility] [address] [place] [address] Paulina Torrez MD 15 [facility] [address]. [address] [place] [address] [email or web address] documented [...] documented as of this encounter Care Teams Gummed Tape Press Operator Relationship Specialty Start Date End Date Kayla Casarez MD [address] [place] [address] [email or web address] PCP - General 09/21/13 documented as of this encounter Additional Source Comments The information contained in this document represents components of the legal health record. It is not the complete legal health record.[facility]
--- OUTSIDE RECORDS SUMMARY | 2025-02-16 10:57 | XMS_ITS | Encounter Summary ---
Author Organization [facility] Address [address] [place] [address] Phone Care Team Providers Care Fine Grade Operator Name Role Phone Kayla Casarez MD Primary Care Provider [phone] Encounter Details Date Type Department Care Team (Late Contact Info) Description 01/22/2023 Transcribe Orders [facility] [place] [address] [place] [address] Kayla Casarez MD 15 [place], [place] [phone] [email or web address] Social History Tobacco Use Types Packs/Day Years [...] st Contact Info) Description 01/25/2025 Procedure Pass [address] [address] 10/12/2025 11:00 AM EDT Appointment [address] [address] Kayla Casarez MD 15 [place] [address] 10/14/2025 10:00 AM EDT Office Visit [facility] 15 [facility] [address] [place], [place] [phone] Paulina Torrez MD 15 [facility] Carlos. [address] [place] [address] documented as of this encounter Visit Diagnoses Not on filedocumented in this encounter Care Teams Fine Grade Operator Relationship Specialty Start Date End Date Kayla Casarez MD 15 [place] [address] PCP - General 09/21/13 documented as of this encounter Additional Source Comments The information contained in this document represents components of the legal health record. It is not the complete legal health record.[facility]
--- OUTSIDE RECORDS SUMMARY | 2025-02-16 10:57 | XMS_ITS | Encounter Summary ---
Author Organization [facility] Address [address] [place] [address] Phone Care Team Providers Care Content Designer Name Role Phone Kayla Casarez MD Primary Care Provider [phone] Encounter Details Date Type Department Care Team (Late Contact Info) Description 11/27/2022 Procedure Pass [address] [address] Social History Tobacco Use Types Packs/Day Years [...] (Late st Contact Info) Description 01/25/[address] [address] 10/12/2025 11:00 AM EDT Appointment [facility] 30 [place] [address] Kayla Casarez MD 15 [place] [address] 10/14/2025 10:00 AM EDT Office Visit [facility] [place] [facility] 15 [facility] [address] [place] [address] Paulina Torrez MD 15 [facility] Carlos. [address] [place] [address] [email or web address] documented as of this encounter Visit Diagnoses Not on filedocumented in this encounter Care Teams Content Designer Relationship Specialty Start Date End Date Kayla Casarez MD 15 [place] [address] PCP - General 09/21/13 documented as of this encounter Additional Source Comments The information contained in this document represents components of the legal health record. It is not the complete legal health record.[facility]
--- OUTSIDE RECORDS SUMMARY | 2025-02-16 10:57 | XMS_ITS | Encounter Summary ---
Author Organization [facility] Address [address] [place] [address] Phone Care Team Providers Care Sanitation Superintendent Name Role Phone Kayla Casarez MD Primary Care Provider Encounter Details Date Type Department Care Team (Late st Contact Info) Description 02/26/2021 Procedure Pass [address] [address] Social History Tobacco Use Types Packs/Day Years [...] st Contact Info) Description 01/25/2025 Procedure Pass [address] [address] 10/12/2025 11:00 AM EDT Appointment [address] [address] Kayla Casarez MD [address] [place] [address] 10/14/2025 10:00 AM EDT Office Visit [facility] [place] [facility] 15 [facility] [address] [place] [address] Paulina Torrez MD 15 [facility] [address]. [address] [place] [address] [email or web address] documented as of this encounter Visit Diagnoses Not on filedocumented in this encounter Additional Health Concerns Infection Onset Date Last Indicated Resolved Time CoV-Exposed Comment:Recent close contact documented in the COVID-19 PCR/PRO order 03/19/2021 03/21/2021 04/03/2021 1:[address] documented as of this encounter Care Teams Sanitation Superintendent Relationship Specialty Start Date End Date Kayla Casarez MD 15 [place] [address] [email or web address] PCP - General 09/21/13 documented as of this encounter Additional Source Comments The information contained in this document represents components of the legal health record. It is not the complete legal health record.[facility]
--- OUTSIDE RECORDS SUMMARY | 2025-02-16 10:58 | XMS_ITS | Encounter Summary ---
Author Organization [facility] Address [address] [facility] [address] [place] [address] Phone Care Team Providers Care Case Finisher Name Role Phone aKyla Casarez MD Primary Care Provider Encounter Details Date Type Department Care Team (Late st Contact Info) Description 10/06/2018 Ancillary Orders Virtual Department [address] [place] [address] Charmaine Fernández MD [address] [place] [address] [address] [place] [address] Visit for screening mammogram Social [...] st Contact Info) Description 01/25/2025 Procedure Pass [address] [address] 10/12/2025 11:00 AM EDT Appointment [address] [address] Kayla Casarez MD 15 [place] [address] 10/14/2025 10:00 AM EDT Office Visit [facility] [place] [facility] 15 [facility] [address] [place] [address] Paulina Torrez MD 15 [facility] [address]. [address] [place] [address] [email or web address] documented as of this encounter Results * [...] which lowers the sensitivity of mammography. POS -[id number] Narrative 10/14/2018 1:18 PM EDT Bilateral full-field [...] appearance whichlowers the sensitivity of mammography. POS -[id number] Charmaine Fernández MD IMG MG EXAMS Final [...] documented as of this encounter Care Teams Case Finisher Relationship Specialty Start Date End Date Kayla Casarez MD [address] [place] [address] [email or web address] PCP - General 09/21/13 documented as of this encounter Additional Source Comments The information contained in this document represents components of the legal health record. It is not the complete legal health record.[facility]
--- OUTSIDE RECORDS SUMMARY | 2025-02-16 10:58 | XMS_ITS | Encounter Summary ---
Author Organization [facility] Address [address] [place] [address] Phone Care Team Providers Care Poultry Grader Name Role Phone Kayla Casarez MD Primary Care Provider [phone] Reason for Referral * MRI/CAT Scan - Closed Specialty Diagnoses / Procedures Referred By Sonam franco Referred To Contact Radiology Diagnoses Abdominal pain, unspecified abdominal location Procedures CT Abdomen/Pelvis CHG CT SCAN,ABDOMENT AND PELVIS,W CONTRAST Kayla Casarez MD Phone: tel: fax: mailto:[email or web address] Referral ID Status Reason Start Date Expiration Date Visits Re quested Visits Authorized [id number] Closed 08/18/2020 02/13/2021 1 1 Encounter Details Date Type Department Care Team (Late st Contact Info) Description 08/18/2020 Transcribe Orders Virtual Department 30 [place] [address] Kayla Casarez MD 15 [place] [address] [email or web address] Abdominal pain, unspecified abdominal location (Primary Dx) [...] st Contact Info) Description 01/25/2025 Procedure Pass [address] [address] 10/12/2025 11:00 AM EDT Appointment [address] [address] Kayla Casarez MD [address] [place] [address] 10/14/2025 10:00 AM EDT Office Visit [facility] [place] [facility] [address] [address] Paulina Torrez MD [address] [address] [email or web address] documented as of this encounter [...] documented as of this encounter Care Teams Poultry Grader Relationship Specialty Start Date End Date Kayla Casraez MD [address] [place] [address] [email or web address] PCP - General 09/21/13 documented as of this encounter Additional Source Comments The information contained in this document represents components of the legal health record. It is not the complete legal health record.[facility]
--- OUTSIDE RECORDS SUMMARY | 2025-02-16 10:58 | XMS_ITS | Encounter Summary ---
Author Organization [facility] Address [facility] [employer] [address] [address] Phone Care Team Providers Care Maintenance Shop Technician Name Role Phone Kayla Casarez MD Primary Care Provider Encounter Details Date Type Department Care Team (Late st Contact Info) Description 04/14/2024 Transcribe Orders [facility] [place] [address] 2nd [place] [address] Kayla Casarez MD 15 [place], [place] [phone] [email or web address] PE (physical exam), routine (Primary Dx); Hypothyroidism, [...] st Contact Info) Description 01/25/2025 Procedure Pass [address] [address] 10/12/2025 11:00 AM EDT Appointment [address] [address] Kayla Casarez MD 15 [place] [address] [email or web address] 10/14/2025 10:00 AM EDT Office Visit [facility] [place] [facility] [address] [address] Paulina Torrez MD [address] [address] [email or web address] documented as of this encounter Results * TSH with reflex (04/14/2024 8:26 AM EST) TSH 1.43 0.27 - 4.20 uIU/mL [facility] Blood 04/14/2024 8:26 AM EST 04/14/2024 8:38 AM EST us Kayla Casarez MD LAB BLOOD BKR ORDERABLES Fi nal Result [address] [address] * (ABNORMAL) Lipid panel (04/14/2024 8:26 AM EST) HDL 76 mg/dL [facility] Comment: Interpretation <40 mg/dL: Low HDL cholesterol (major risk factor for CHD) Greater than or equal to 60 mg/dL: High HDL cholesterol ( negative risk factor for CHD) HDL - cholesterol is affected by a number of factors, e.g. smoking, excerise, hormones, sex and age. CHOLESTEROL 219 0 - 240 mg/dL [facility] TRIGLYCERIDES 108 30 - 160 mg/dL [facility] LDL 121 50 - 129 mg/dL [facility] Comment: LDL levels in terms of risk for coronary heart disease: <100 mg/dL: Optimal 100-129 mg/dL: Near or above optimal 130-159 mg/dL: Borderline high 160-189 mg/dL: High >190 mg/dL: Very High CARDIAC RISK RATIO 2.9(L) 3.3 - 4.4 C [facility] Blood 04/14/2024 8:26 AM EST 04/14/2024 8:31 AM EST us Kayla Casarez MD LAB BLOOD BKR ORDERABLES Fi nal Result [facility] 30 [place] [address] * (ABNORMAL) Comprehensive metabolic panel (04/14/2024 8:26 AM EST) SODIUM 138 133 - 146 mmol/L [facility] POTASSIUM 4.0 3.3 - 5.1 mmol/L [facility] CHLORIDE 105 96 - 108 mmol/L [facility] CO2 25 21 - 35 mmol/L [facility] BUN 9 6 - 19 mg/dL [facility] CREATININE 0.70 0.5 - 1.5 mg/dL [facility] GLUCOSE 103(H) 70 - 99 mg/dL [facility] ALBUMIN 4.0 3.9 - 4.8 g/dL [facility] TOTAL PROTEIN 6.8 6.5 - 8.0 g/dL [facility] CALCIUM 9.5 8.4 - 10.3 mg/dL [facility] ALKALINE PHOSPHATASE 71 39 - 117 U/L [facility] TOTAL BILIRUBIN 0.7 0.0 - 1.2 mg/dL [facility] AST 38(H) 0 - 37 U/L [facility] ALT 46(H) 0 - 40 U/L [facility] GLOBULIN 2.8 1 - 4.8 g/dL [facility] EGFR 97 >59 mL/min/1.7 3m2 [facility] Comment:Estimated glomerular filtration rate calculated using the CKD-EPI refit equation. ANION GAP 12 10 - 20 mmol/L [facility] Blood 04/14/2024 8:26 AM EST 04/14/2024 8:38 AM EST us Kayla Casarez MD LAB BLOOD BKR ORDERABLES Fi nal Result Performing Organization Address City/State/[facility] Co de Phone Number [facility] [address] [place] [address] documented in this encounter Visit Diagnoses Diagnosis PE (physical exam), routine- Primary Hypothyroidism, unspecified type documented in this encounter Care Teams Maintenance Shop Technician Relationship Specialty Start Date End Date Kayla Casarez MD 15 [place] [address] [email or web address] PCP - General 09/21/13 documented as of this encounter Additional Source Comments The information contained in this document represents components of the legal health record. It is not the complete legal health record.[facility]
--- OUTSIDE RECORDS SUMMARY | 2025-02-16 10:58 | XMS_ITS | Encounter Summary ---
Author Organization [facility] Address [address] [place] [address] Phone Care Team Providers Care Planning Division Superintendent Name Role Phone Kayla Casarez MD Primary Care Provider [phone] Encounter Details Date Type Department Care Team (Late st Contact Info) Description 01/11/2017 Ancillary Orders [facility] X-Ray [address] [address] Kayla Casarez MD [address] [place] [address] [email or web address] Breast screening Social History Tobacco Use Types [...] st Contact Info) Description 01/25/2025 Procedure Pass [address] [address] 10/12/2025 11:00 AM EDT Appointment [address] [address] Kayla Casarez MD 15 [place] [address] 10/14/2025 10:00 AM EDT Office Visit [facility] [place] [facility] 15 [facility] [address] [place] [address] Paulina Torrez MD 15 [facility] [address]. [address] [place] [address] [email or web address] [...] lowers the sensitivity of mammography. POS - [id number] Narrative 02/12/2017 5:03 PM EST FINDINGS: Bilateral [...] whichlowers the sensitivity of mammography. POS - [id number] Kayla Casarez MD IMG MG EXAMS Final [...] documented as of this encounter Care Teams Planning Division Superintendent Relationship Specialty Start Date End Date Kayla Casarez MD [address] [place] [address] [email or web address] PCP - General 09/21/13 documented as of this encounter Additional Source Comments The information contained in this document represents components of the legal health record. It is not the complete legal health record.[facility]
--- OUTSIDE RECORDS SUMMARY | 2025-02-16 10:58 | XMS_ITS | Encounter Summary ---
Author Organization [facility] Address [address] [place] [address] Phone Care Team Providers Care Security Sergeant Name Role Phone Kayla Casarez MD Primary Care Provider Encounter Details Date Type Department Care Team (Late st Contact Info) Description 09/01/2020 Procedure Pass [address] [address] Social History Tobacco Use Types Packs/Day Years [...] st Contact Info) Description 01/25/2025 Procedure Pass [address] [address] 10/12/2025 11:00 AM EDT Appointment [address] [address] Kayla Casarez MD [address] [place] [address] 10/14/2025 10:00 AM EDT Office Visit [facility] [place] [facility] [address] [place] [address] Paulina Torrez MD [address] [address] [email or web address] documented as of this encounter Visit Diagnoses Not on filedocumented in this encounter Additional Health Concerns Infection Onset Date Last Indicated Resolved Time CoV-Exposed Comment:Recent close contact documented in the COVID-19 PCR/PRO order 03/19/2021 03/21/2021 04/03/2021 1:[address] documented as of this encounter Care Teams Security Sergeant Relationship Specialty Start Date End Date Kayla Casarez MD [address] [place] [address] [email or web address] PCP - General 09/21/13 documented as of this encounter Additional Source Comments The information contained in this document represents components of the legal health record. It is not the complete legal health record.[facility]
--- OUTSIDE RECORDS SUMMARY | 2025-02-16 10:58 | XMS_ITS | Encounter Summary ---
Author Organization [facility] Address [address] [place] [address] [place] [address] Phone Care Team Providers Care Engine Cowling Installer Name Role Phone Kayla Casarez MD Primary Care Provider Encounter Details Date Type Department Care Team (Late Contact Info) Description 01/31/2025 [facility] [address] [facility] 3rd Floor, [address] [place] [address] Kayla Casarez MD 15 [place], [place] [phone] [email or web address] Social History Tobacco Use Types Packs/Day Years [...] st Contact Info) Description 01/25/2025 Procedure Pass [address] [address] 10/12/2025 11:00 AM EDT Appointment [address] [address] Kayla aCsarez MD 15 [place] [address] 10/14/2025 10:00 AM EDT Office Visit [facility] [place] [facility] [address] [facility] [address] [place] [address] Paulina Torrez MD 15 [facility] Carlos. [address] [place] [address] documented as of this encounter Procedures Procedure Name Priority Date/Time Associated Diagnosis Comments OUTSIDE MONITOR Routine 01/31/2025 4:56 PM EST documented in this encounter Results * Outside Monitor Report Only (01/31/2025 4:56 PM EST) Kayla Casarez MD CV CARDIAC SERVICES ORDERAB LES Final Result documented in this encounter Visit Diagnoses Not on filedocumented in this encounter Care Teams Engine Cowling Installer Relationship Specialty Start Date End Date Kayla Casarez MD 15 [place] [address] PCP - General 09/21/13 documented as of this encounter Additional Source Comments The information contained in this document represents components of the legal health record. It is not the complete legal health record.[facility]
--- OUTSIDE RECORDS SUMMARY | 2025-02-16 10:58 | XMS_ITS | Encounter Summary ---
Author Organization [facility] Address [address] [place] [address] Phone Care Team Providers Care Injection Press Operator Name Role Phone Kayla Casarez MD Primary Care Provider Encounter Details Date Type Department Care Team (Late st Contact Info) Description 04/19/2020 Transcribe Orders Virtual Department [address] [place] [address] Kayla Casarez MD [address] [place] [address] [email or web address] Exposure to SARS-associated coronavirus (Primary Dx) Social [...] st Contact Info) Description 01/25/2025 Procedure Pass [address] [address] 10/12/2025 11:00 AM EDT Appointment [address] [address] Kayla Casarez MD [address] [place] [address] 10/14/2025 10:00 AM EDT Office Visit [facility] 15 [facility] [address] [place] [address] Paulina Torrez MD 15 [facility] Carlos. [address] [place] [address] [email or web address] documented as of this encounter Results * COVID-19 PCR Order (04/19/2020 11:17 AM EST) COVID Testing Status Specimen received in analyzing lab. Results should be available within 24 to 48 hrs. [facility] Symptomatic? NO [facility] 04/19/2020 11:1 7 AM EST 04/19/2020 1:45 PM EST us Kayla Casarez MD LAB GENERAL ORDERABLES Adali murdock Result Performing Organization Address City/State/[facility] Co de Phone Number [facility] [address] [place] [address] [facility] [address] [place] [address] documented in this encounter Visit Diagnoses Diagnosis Exposure to SARS-associated coronavirus- Primary documented in this encounter Additional Health Concerns Infection Onset Date Last Indicated Resolved Time CoV-Exposed Comment:Recent close contact documented in the COVID-19 PCR/PRO order 04/19/2020 04/19/2020 05/03/2020 1:24 AM EST CoV-Exposed Comment:Recent close contact documented in the COVID-19 PCR/PRO order 03/19/2021 03/21/2021 04/03/2021 1:[address] documented as of this encounter Care Teams Injection Press Operator Relationship Specialty Start Date End Date Kayla Casarez MD [address] [place] [address] PCP - General 09/21/13 documented as of this encounter Additional Source Comments The information contained in this document represents components of the legal health record. It is not the complete legal health record.[facility]
--- OUTSIDE RECORDS SUMMARY | 2025-02-16 10:58 | XMS_ITS | Clinical Summary ---
Author Organization [facility] Address [address] [place] [address] Phone Care Team Providers Care Antisqueak Applier Name Role Phone Kayla Ordaz MD Primary [...] hospital encounter of 01/13/19 (from the past 55153 hour(s)) DXA Screening Narrative This is a [...] hospital encounter of 01/13/19 (from the past 69950 hour(s)) DXA Screening Narrative This is a [...] the guidance issued by the [employer] [place] (May) and the FDA (May 22, 2019). This test has not been FDA cleared or approved but is being run under the FDA's Emergency Use Authorization (EUA) mechanism. This test was validated for dry nasal swabs. Method: RNA is isolated from respiratory specimens using Delver-96 Viral RNA Isolation Kits ([employer]); RNA is reverse transcribed to cDNA, and subsequently ampl ified in a Real-Time PCR Instrument ([employer] ViiA7). This system provides qualitative detection of nucleic acid from SARS-CoV-2. For more detailed information on the test methods and limitations as well as for Fact Sheets for both Patients and Healthcare providers see https://sites.broadThreatMetrixtitute.org/tokm-ada-fibfjt/jwc-gcmc-zwfwz-19-mine ti ng-work-0 Positive results are indicative of [...] Encounters Date Type Department Care Team Description 01/31/2025 Orders Only [facility] [address], [address] [place] [address] Kayla Ordaz MD 01/25/2025 Transcribe Orders Virtual Department [address] [place] [address] Kayla Ordaz MD Breast screening (Primary Dx) 12/16/2024 Transcribe Orders [facility] [address], [address] [place] [address] Kayla Ordaz MD Palpitations (Primary Dx) from Last 3 Months Immunizations Immunization Administration [...] Contact Info) Description 01/25/2025 Procedure [address] [address] 10/12/2025 11:00 AM EDT Appointment [address] [address] Kayla Ordaz MD [address] [place] [address] 10/14/2025 10:00 AM EDT Office Visit [facility] [place] [facility] 15 [facility] [address] [place] [address] Paulina Torrez MD 15 [facility] [address]. [address] [place] [address] [email or web address] Health Maintenance Due Date Last Done Comments Adult Td,Tdap Booster 1960 DEPRESSION SCREENING 1972 HEPATITIS C SCREENING 1978 HIV ONE-TIME SCREENING (18-65 YEARS) 1978 ZOSTER VACCINES (1 of 2) 07/25/1979 PAP SMEAR 1981 COLOGUARD 2005 FIT TEST 2005 FOBT 2005 SIGMOIDOSCOPY 2005 VIRTUAL COLONOSCOPY 2005 RSV VACCINE (1 - Risk 50-74 years 1-dose series) 2010 PNEUMOCOCCAL VACCINES (50+ years) (2 of 2 - PPSV23, PCV20, or PCV21) 07/03/2016 05/08/2016 INFLUENZA VACCINE (#1) 2024 12/31/2017 COVID-19 VACCINE (2024- season) 2024 07/07/2021, 11/15/2020, 05/10/2020, Additional history [...] on patient's age to complete this topic IPV VACCINES Aged Out No longer eligi ble [...] OUTSIDE MONITOR Routine 01/31/2025 4:56 PM EST LIPID PANEL Routine 04/14/2024 8:26 AM EST [...] Recently Relevant to Health Maintenance Results * Outside Monitor Report Only (01/31/2025 4:56 PM EST) Kayla Ordaz MD CV CARDIAC SERVICES ORDERAB LES Final Result * TSH with reflex (04/14/2024 8:26 AM EST) TSH 1.43 0.27 - 4.20 uIU/mL [facility] Blood 04/14/2024 8:26 AM EST 04/14/2024 8:38 AM EST Kayla Ordaz MD LAB BLOOD BKR ORDERABLES Fi nal Result [facility] [address] [place] [address] * (ABNORMAL) Lipid panel (04/14/2024 8:26 AM EST) HDL 76 mg/dL [facility] Comment: Interpretation <40 mg/dL: Low HDL cholesterol (major risk factor for CHD) Greater than or equal to 60 mg/dL: High HDL cholesterol ( negative risk factor for CHD) HDL - cholesterol is affected by a number of factors, e.g. smoking, excerise, hormones, sex and age. CHOLESTEROL 219 0 - 240 mg/dL [facility] TRIGLYCERIDES 108 30 - 160 mg/dL [facility] LDL 121 50 - 129 mg/dL [facility] Comment: LDL levels in terms of risk for coronary heart disease: <100 mg/dL: Optimal 100-129 mg/dL: Near or above optimal 130-159 mg/dL: Borderline high 160-189 mg/dL: High >190 mg/dL: Very High CARDIAC RISK RATIO 2.9(L) 3.3 - 4.4 C [facility] Blood 04/14/2024 8:26 AM EST 04/14/2024 8:31 AM EST us Kayla Ordaz MD LAB BLOOD BKR ORDERABLES Fi nal Result Performing Organization Address City/State/[facility] Co de Phone Number [address] [address] * BI MAMMOGRAM SCREENING WITH TOMOSYNTHESIS WITH [...] 12/27/2020 10:05 AM EDT Patient Name: Rozina Mourapili Attending MD:: EVERETTE BAKER MD Procedure Date: 12/27/2020 10:05 AM Date of : 1960 Age: 60 Admit Type: Outpatient Gender: Female Room: [place] [address] Referring MD: KAYLA ORDAZ MD Exam Type: [...] 10:05 AM Procedure Code(s): --- Professional --- 55310, Colonoscopy, flexible; diagnostic, including collection of specimen(s) by brushing or washing, when performed (separateprocedure) --- Technical --- 26201, Colonoscopy, flexible; diagnostic, including collection of specimen(s) by brushing or washing, when performed (separateprocedure) Diagnosis Code(s): --- Professional --- Z12.11, Encounter for screening for malignantneoplasm of colon --- Technical --- Z12.11, Encounter for screening for malignantneoplasm of colon CPT copyright 2018 [employer]. All rights reserved. The codes documented in this report are preliminary and upon machine lay out worker reviewmay be revised to meet current compliance requirements. Procedure Date: 12/27/2020 10:05:19 AM 30 [place] [address] Kayla Ordaz MD GI PROCEDURE ORDERABLES Fin al Result from Last 3 Months or Most Recently Relevant to Health Maintenance Insurance [facility] HMO Care Teams Antisqueak Applier Relationship Specialty Start Date End Date Kayla Ordaz MD [address] [place] [address] [email or web address] PCP - General 09/21/13 Additional Source Comments The information contained in this document represents components of the legal health record. It is not the complete legal health record.[facility]
--- OUTSIDE RECORDS SUMMARY | 2025-02-16 10:58 | XMS_ITS | Encounter Summary ---
Author Organization [facility] Address [address] [place] [address] Phone Care Team Providers Care Body Shop Worker Name Role Phone Kayla Casarez MD Primary Care Provider Encounter Details Date Type Department Care Team (Late st Contact Info) Description 12/13/2019 Transcribe Orders Virtual Department [address] [place] [address] Kayla Casarez MD [address] [place] [address] [email or web address] Pre-procedure lab exam [...] st Contact Info) Description 01/25/2025 Procedure Pass [address] [address] 10/12/2025 11:00 AM EDT Appointment [address] [address] Kayla Casarez MD 15 [place] [address] 10/14/2025 10:00 AM EDT [facility] [place] [facility] 15 [facility] [address] [place] [address] Paulina Torrez MD 15 [facility] Carlos. [address] [place] [address] documented as of this encounter Visit Diagnoses [...] documented as of this encounter Care Teams Body Shop Worker Relationship Specialty Start Date End Date Kayla Casarez MD [address] [place] [address] PCP - General 09/21/13 documented as of this encounter Additional Source Comments The information contained in this document represents components of the legal health record. It is not the complete legal health record.[facility]
--- OUTSIDE RECORDS SUMMARY | 2025-02-16 10:58 | XMS_ITS | Encounter Summary ---
Author Organization [facility] Address [address] [facility] [address] [place] [address] Phone Care Team Providers Care Hydrodynamicist Name Role Phone Kayla Casarez MD Primary Care Provider Encounter Details Date Type Department Care Team (Late st Contact Info) Description 09/01/2020 Ancillary Orders Virtual Department [address] [place] [address] Charmaine Fernández MD [address] [place] [address] Drive [address] [place] [address] Breast screening Social History Tobacco [...] Contact Info) Description 01/25/2025 Procedure Pass [address] [address] 10/12/2025 11:00 AM EDT Appointment [address] [address] Kayla Casarez MD 15 [place] [address] 10/14/2025 10:00 AM EDT Office Visit [facility] [place] [facility] 15 [facility] [address] [place] [address] Paulina Torrez MD 15 [facility] [address] [place] [address] [email or web address] documented as of this [...] documented as of this encounter Care Teams Hydrodynamicist Relationship Specialty Start Date End Date Kayla Casarez MD [address] [place] [address] [email or web address] PCP - General 09/21/13 documented as of this encounter Additional Source Comments The information contained in this document represents components of the legal health record. It is not the complete legal health record.[facility]
--- OUTSIDE RECORDS SUMMARY | 2025-02-16 10:58 | XMS_ITS | Encounter Summary ---
Author Organization [facility] Address [address] [place] [address] Phone Care Team Providers Care Pumping Supervisor Name Role Phone Kayla Casarez MD Primary Care Provider Encounter Details Date Type Department Care Team (Late st Contact Info) Description 10/08/2021 Procedure Pass [address] [address] Social History Tobacco Use Types Packs/Day Years [...] Contact Info) Description 01/25/2025 Procedure Pass [address] [address] 10/12/2025 11:00 AM EDT Appointment [address] [address] Kayla Casarez MD [address] [place] [phone] [email or web address] 10/14/2025 10:00 AM EDT Office Visit [facility] [place] [facility] 15 [facility] [address] [place] [address] Paulina Torrez MD 15 [facility] [address]. [address] [place] [address] [email or web address] documented as of this encounter Visit Diagnoses Not on filedocumented in this encounter Care Teams Pumping Supervisor Relationship Specialty Start Date End Date Kayla Casarez MD [address] [place] [address] [email or web address] PCP - General 09/21/13 documented as of this encounter Additional Source Comments The information contained in this document represents components of the legal health record. It is not the complete legal health record.[facility]
--- OUTSIDE RECORDS SUMMARY | 2025-02-16 10:58 | XMS_ITS | Encounter Summary ---
Author Organization [facility] Address [address] [place] [address] Phone Care Team Providers Care Warehouse Examiner Name Role Phone Kayla Casarez MD Primary Care Provider Encounter Details Date Type Department Care Team (Late st Contact Info) Description 08/18/2020 Procedure Pass [facility] Ct Scan [address] [address] Social History Tobacco Use Types Packs/Day Years [...] Contact Info) Description 01/25/2025 Procedure Pass [address] [address] 10/12/2025 11:00 AM EDT Appointment [address] [address] Kayla Casarez MD [address] [place] [phone] [email or web address] 10/14/2025 10:00 AM EDT Office Visit [facility] [place] [facility] [address] [place] [address] Paulina Torrez MD [address] [address] [email or web address] documented as of this encounter Visit Diagnoses Not on filedocumented in this encounter Additional Health Concerns Infection Onset Date Last Indicated Resolved Time CoV-Exposed Comment:Recent close contact documented in the COVID-19 PCR/PRO order 03/19/2021 03/21/2021 04/03/2021 1:[address] documented as of this encounter Care Teams Warehouse Examiner Relationship Specialty Start Date End Date Kayla Casarez MD [address] [place] [address] [email or web address] PCP - General 09/21/13 documented as of this encounter Additional Source Comments The information contained in this document represents components of the legal health record. It is not the complete legal health record.[facility]
--- OUTSIDE RECORDS SUMMARY | 2025-02-16 10:58 | XMS_ITS | Encounter Summary ---
Author Organization [facility] Address [address] [place] [address] Phone Care Team Providers Care Construction Equipment Operator Name Role Phone Kayla Casarez MD Primary Care Provider Encounter Details Date Type Department Care Team ([facility] st Contact Info) Description 06/22/2024 Transcribe Orders Virtual Department 30 [place] [address] Kayla Casarez MD 15 [place], [place] [phone] [email or web address] Elevated LFTs (Primary Dx) Social History Tobacco [...] st Contact Info) Description 01/25/2025 Procedure Pass [address] [address] 10/12/2025 11:00 AM EDT Appointment [facility] 30 [place] [address] Kayla Casarez MD 15 [place] [address] [email or web address] 10/14/2025 10:00 AM EDT Office Visit [facility] [place] [facility] 15 [facility] [address] [place], [place] [address] Paulina Torrez MD 15 [facility] Carlos. [address] [place] [address] [email or web address] documented as of [...] small polyps measuring up to 3 mm. us Kayla Casarez MD IMG US ABDOMEN Final Resul t documented in this encounter Visit Diagnoses Diagnosis Elevated LFTs- Primary Other abnormal blood chemistry Elevated LFTs Other abnormal blood chemistry documented in this encounter Care Teams Construction Equipment Operator Relationship Specialty Start Date End Date Kayla Casarez MD [address] [place] [email or web address] PCP - General 09/21/13 documented as of this encounter Additional Source Comments The information contained in this document represents components of the legal health record. It is not the complete legal health record.[facility]
--- OUTSIDE RECORDS SUMMARY | 2025-02-16 10:58 | XMS_ITS | Encounter Summary ---
Author Organization [facility] Address [address] [place] [address] Phone Care Team Providers Care Unix Manager Name Role Phone Kayla Casarez MD Primary Care Provider Encounter Details Date Type Department Care Team (Late st Contact Info) Description 03/12/2017 Transcribe Orders [facility] [address] [place] [address] Kayla Casarez MD 15 [place] [address] [email or web address] Inflammatory arthritis (Primary Dx); Arthralgia, unspecified joint; [...] st Contact Info) Description 01/25/2025 Procedure Pass [address] [address] 10/12/2025 11:00 AM EDT Appointment [address] [address] Kayla Casarez MD 15 [place], [place] [phone] [email or web address] 10/14/2025 10:00 AM EDT Office Visit [facility] [place] [facility] 15 [facility] [address] [place] [address] Paulina Torrez MD 15 [facility] [address]. [address] [place] [address] [email or web address] documented as of this encounter Results * (ABNORMAL) Lyme screen with reflex to Western blot, blood (03/12/2017 9:41 AM EST) Lyme AB IgG Negative Negative [facility] Lyme AB IgM Equivocal(A) Negative [facility] Comment:The Lyme Disease Ant ibody, Confirmation, Serum (Western Blot) has been reflexed. The results will follow. Blood 03/12/2017 9:41 AM EST 03/12/2017 9:47 AM EST Kayla Casarez MD LAB BLOOD BKR ORDERABLES Fi nal Result [address] [address] * C-Reactive Protein (03/12/2017 9:41 AM EST) C REACTIVE PROTEIN 0.5 0 - 0.5 mg/L [facility] Blood 03/12/2017 9:41 AM EST 03/12/2017 9:47 AM EST Kayla Casarez MD LAB BLOOD BKR ORDERABLES Fi nal Result [address] [address] * CBC (03/12/2017 9:41 AM EST) WBC 7.27 3.40 - 11.20 K/uL [facility] RBC 4.17 3.80 - 4.80 M/uL [facility] HGB 13.1 12.0 - 15.0 g/dL [facility] HCT 38.0 36.0 - 46.0 % [facility] PLT 229 130 - 400 K/uL [facility] MCV 91.1 79.0 - 98.0 fL [facility] MCH 31.4 27.0 - 34.8 pg [facility] MCHC 34.5 31.5 - 36.0 g/dL [facility] RDW 12.0 10.8 - 14.6 % [facility] MPV 11.2 9.4 - 12.4 fl [facility] NRBC 0.00 /100 WBCs [facility] ABSOLUTE NRBC 0.00 K/uL [facility] Blood 03/12/2017 9:41 AM EST 03/12/2017 9:47 AM EST us Kayla Casarez MD LAB BLOOD BKR ORDERABLES Fi nal Result Performing Organization Address City/State/[facility] Co de Phone Number [address] [address] * Comprehensive metabolic panel (03/12/2017 9:41 AM EST) SODIUM 140 133 - 146 mmol/L [facility] POTASSIUM 4.3 3.3 - 5.1 mmol/L [facility] CHLORIDE 102 96 - 108 mmol/L [facility] CO2 26 21 - 35 mmol/L [facility] BUN 13 6 - 19 mg/dL [facility] CREATININE 0.70 0.5 - 1.5 mg/dL [facility] GLUCOSE 94 70 - 99 mg/dL [facility] ALBUMIN 4.0 3.9 - 4.8 g/dL [facility] TOTAL PROTEIN 7.3 6.5 - 8.0 g/dL [facility] CALCIUM 9.5 8.4 - 10.3 mg/dL [facility] ALKALINE PHOSPHATASE 67 39 - 117 U/L [facility] TOTAL BILIRUBIN 0.4 0 - 1.2 mg/dL [facility] AST 22 0 - 37 U/L [facility] ALT 27 0 - 40 U/L [facility] GLOBULIN 3.3 1 - 4.8 g/dL [facility] EGFR >60 60 - 1000 mL/min/1.7 3m2 [facility] Comment:Abnormal if <60. If patient is -Emirati, multiply the result by 1.21. ANION GAP 16 10 - 20 mmol/L [facility] Blood 03/12/2017 9:41 AM EST 03/12/2017 9:47 AM EST us Kayla Casarez MD LAB BLOOD BKR ORDERABLES Fi nal Result [address] [address] documented in this encounter Visit Diagnoses Diagnosis [...] documented as of this encounter Care Teams Unix Manager Relationship Specialty Start Date End Date Kayla Casarez MD [address] [place] [phone] [email or web address] PCP - General 09/21/13 documented as of this encounter Additional Source Comments The information contained in this document represents components of the legal health record. It is not the complete legal health record.[facility]
--- OUTSIDE RECORDS SUMMARY | 2025-02-16 10:58 | XMS_ITS | Encounter Summary ---
Author Organization [facility] Address [address] [place] [address] Phone Care Team Providers Care Turning Machine Operator Helper Name Role Phone Kayla Casarez MD Primary Care Provider Encounter Details Date Type Department Care Team (Late Contact Info) Description 08/25/2018 Transcribe Orders Virtual Department [address] [place] [address] Kayla Casarez MD [address] [place] [phone] [email or web address] Post-menopausal (Primary Dx) Social History Tobacco Use [...] Contact Info) Description 01/25/2025 Procedure Pass [address] [address] 10/12/2025 11:00 AM EDT Appointment [address] [address] Kayla Casarez MD 15 [place], [place] [phone] 10/14/2025 10:00 AM EDT Office Visit [facility] [place] [facility] [address] [facility] [address] [place] [address] Paulina Torrez MD 15 [facility] [address] [place] [address] [email or web address] documented as of this [...] documented as of this encounter Care Teams Turning Machine Operator Helper Relationship Specialty Start Date End Date Kayla Casarez MD [address] [place] [address] [email or web address] PCP - General 09/21/13 documented as of this encounter Additional Source Comments The information contained in this document represents components of the legal health record. It is not the complete legal health record.[facility]
--- OUTSIDE RECORDS SUMMARY | 2025-02-16 10:58 | XMS_ITS | Encounter Summary ---
Author Organization [facility] Address [address] [place] [address] Phone Care Team Providers Care Energy Scheduler Name Role Phone Kayla Casarez MD Primary Care Provider Encounter Details Date Type Department Care Team (Late st Contact Info) Description 05/30/2022 Procedure Pass [address] [address] Social History Tobacco Use Types Packs/Day Years [...] Contact Info) Description 01/25/2025 Procedure Pass [address] [address] 10/12/2025 11:00 AM EDT Appointment [address] [address] Kayla Casarez MD [address] [place] [address] [email or web address] 10/14/2025 10:00 AM EDT Office Visit [facility] [place] [facility] 15 [facility] [address] [place] [address] Paulina Torrez MD 15 [facility] [address]. [address] [place] [address] [email or web address] documented as of this encounter Visit Diagnoses Not on filedocumented in this encounter Care Teams Energy Scheduler Relationship Specialty Start Date End Date Kayla Casarez MD [address] [place] [email or web address] PCP - General 09/21/13 documented as of this encounter Additional Source Comments The information contained in this document represents components of the legal health record. It is not the complete legal health record.[facility]
--- OUTSIDE RECORDS SUMMARY | 2025-02-16 10:58 | XMS_ITS | Encounter Summary ---
Author Organization [facility] Address [address] [place] [address] Phone Care Team Providers Care Spice Fumigator Name Role Phone Kayla Casarez MD Primary Care Provider [phone] Reason for Referral * MRI/CAT Scan - Closed Specialty Diagnoses / Procedures Referred By Sonam franco Referred To Contact Radiology Diagnoses Numbness White matter disease Procedures MRI Brain CHG MRI BRAIN Greyson Delgado MD Phone: tel: fax: [email or web address] Referral ID Status Reason Start Date Expiration Date Visits Re quested Visits Authorized [id number] Closed 05/30/2022 07/29/2022 1 1 Encounter Details Date Type Department Care Team (Latest Contact Info) Description 05/30/2022 Transcribe Orders Virtual Department 30 [place] [address] Greyson Delgado MD [address] [place] [address], [address] [place] [address] [email or web address] Numbness (Primary Dx); White matter disease Social [...] st Contact Info) Description 01/25/2025 Procedure Pass [address] [address] 10/12/2025 11:00 AM EDT Appointment [address] [address] Kayla Casarez MD [address] [place] [phone] [email or web address] 10/14/2025 10:00 AM EDT Office Visit [facility] [place] [facility] [address] [address] Paulina Torrez MD [address] [address] [email or web address] documented as of this encounter Results * MRI BRAIN WITHOUT CONTRAST (06/22/2022 5:15 PM EDT) Anatomical Region Laterality Modality Head Magnetic Resonan ce 06/23/2022 9:04 PM EDT Impressions 06/23/2022 10:06 PM EDT No significant change in trace periventricular white matter disease since 2016, which is nonspecific but may relate to [...] change in trace periventricular white matter disease [email or web address], which is nonspecific but may relate to chronic small vessel disease.This degree of signal abnormality is likely clinically insignificant. Greyson Delgado MD IM MR HEAD/NECK Final Resul t documented in this encounter Visit Diagnoses Diagnosis Numbness- Primary Disturbance of skin sensation White matter disease Numbness Disturbance of skin sensation White matter disease documented in this encounter Care Teams Spice Fumigator Relationship Specialty Start Date End Date Kayla Casarez MD [address] [place] [address] [email or web address] PCP - General 09/21/13 documented as of this encounter Additional Source Comments The information contained in this document represents components of the legal health record. It is not the complete legal health record.[facility]
--- OUTSIDE RECORDS SUMMARY | 2025-02-16 10:58 | XMS_ITS | Encounter Summary ---
Author Organization [facility] Address [address] [place] [address] Phone Care Team Providers Care Maintenance Manager Name Role Phone Kayla Casarez MD Primary Care Provider Encounter Details Date Type Department Care Team (Late st Contact Info) Description 12/27/2020 Procedure Pass [facility] Admitting Dept Virtual Department [address] [place] [address] Social History Tobacco Use Types Packs/Day Years [...] (Late Contact Info) Description 01/25/2025 Procedure Pass [address] [address] 10/12/2025 11:00 AM EDT Appointment [address] [address] Kayla Casarez MD [address] [place] [phone] [email or web address] 10/14/2025 10:00 AM EDT Office Visit [facility] [place] [facility] 15 [facility] [address] [place] [address] Paulina Torrez MD 15 [facility] [address] [place] [address] [email or web address] documented as of this encounter Visit Diagnoses Not on filedocumented in this encounter Additional Health Concerns Infection Onset Date Last Indicated Resolved Time CoV-Exposed Comment:Recent close contact documented in the COVID-19 PCR/PRO order 03/19/2021 03/21/2021 04/03/2021 1:[address] documented as of this encounter Care Teams Maintenance Manager Relationship Specialty Start Date End Date Kayla Casarez MD [address] [place] [address] [email or web address] PCP - General 09/21/13 documented as of this encounter Additional Source Comments The information contained in this document represents components of the legal health record. It is not the complete legal health record.[facility]
--- OUTSIDE RECORDS SUMMARY | 2025-02-16 10:58 | XMS_ITS | Encounter Summary ---
Author Organization [facility] Address [address] [place] [address] Phone Care Team Providers Care Pillar Man Name Role Phone Kayla Casarez MD Primary Care Provider Encounter Details Date Type Department Care Team (Latest Contact Info) Description 06/03/2018 Transcribe Orders [address] [address] Greyson Delgado MD [address] [place] [address], [address] [place] [address] [email or web address] Memory loss (Primary Dx) Social History [...] Contact Info) Description 01/25/2025 Procedure Pass [address] [address] 10/12/2025 11:00 AM EDT Appointment [address] [address] Kayla Casarez MD 15 [place], [place] [phone] 10/14/2025 10:00 AM EDT Office Visit [facility] [place] [facility] 15 [facility] [address] [place] [address] Paulina Torrez MD 15 [facility] [address]. [address] [place] [address] [email or web address] documented as of this encounter Results * Vitamin B12 (06/03/2018 12:59 PM EDT) VITAMIN B12 460 232 - 1,245 pg/mL [facility] Blood 06/03/2018 12:5 9 PM EDT 06/03/2018 1:04 PM EDT us Greyson Delgado MD LAB BLOOD BKR ORDERABLES Fin al Result [facility] 30 [place] [address] documented in this encounter Visit Diagnoses Diagnosis [...] documented as of this encounter Care Teams Pillar Man Relationship Specialty Start Date End Date Kayla Casarez MD 15 [place] [address] PCP - General 09/21/13 documented as of this encounter Additional Source Comments The information contained in this document represents components of the legal health record. It is not the complete legal health record.[facility]
--- OUTSIDE RECORDS SUMMARY | 2025-02-16 10:59 | XMS_ITS | Encounter Summary ---
Author Organization [facility] Address [address] [place] [address] Phone Care Team Providers Care Payroll Officer Name Role Phone Kayla Casarez MD Primary Care Provider Encounter Details Date Type Department Care Team (Late Contact Info) Description 11/12/2023 Procedure Pass [address] [address] Social History Tobacco Use Types Packs/Day Years [...] (Late st Contact Info) Description 01/25/[address] [address] 10/12/2025 11:00 AM EDT Appointment [facility] 30 [place] [address] Kayla Casarez MD 15 [place] [address] 10/14/2025 10:00 AM EDT Office Visit [facility] [place] [facility] 15 [facility] [address] [place] [address] Paulina Torrez MD 15 [facility] [address] [place] [address] [email or web address] documented as of this encounter Visit Diagnoses Not on filedocumented in this encounter Care Teams Payroll Officer Relationship Specialty Start Date End Date Kayla Casarez MD 15 [place] [address] PCP - General 09/21/13 documented as of this encounter Additional Source Comments The information contained in this document represents components of the legal health record. It is not the complete legal health record.[facility]
--- OUTSIDE RECORDS SUMMARY | 2025-02-16 10:59 | XMS_ITS | Encounter Summary ---
Author Organization [facility] Address [address] [place] [address] Phone Care Team Providers Care Instrumentation Engineer Name Role Phone Kayla Casarez MD Primary Care Provider Encounter Details Date Type Department Care Team (Late st Contact Info) Description 08/27/2017 Transcribe Orders [facility] [place] [address] [place] [address] Kayla Casarez MD 15 [place] [address] [email or web address] Routine general medical examination at a health [...] st Contact Info) Description 01/25/2025 Procedure Pass [address] [address] 10/12/2025 11:00 AM EDT Appointment [address] [address] Kayla Casarez MD 15 [place], [place] [phone] [email or web address] 10/14/2025 10:00 AM EDT Office Visit [facility] [place] [facility] 15 [facility] [address] [place] [address] Paulina Torrez MD 15 [facility] [address] [place] [address] [email or web address] documented as of this encounter Results * (ABNORMAL) Urinalysis (08/27/2017 10:37 AM EDT) COLOR STRAW(A) Yellow [facility] CLARITY Clear [facility] GLUCOSE Negative Negative [facility] BILI Negative Negative [facility] KETONES Negative Negative [facility] SPECIFIC GRAVITY 1.010 1.005 - 1.030 [facility] BLOOD Negative Negative [facility] PH 7.5 5.0 - 8.0 [facility] Protein-UA Negative Negative [facility] NITRITE Negative Negative [facility] Leukocyte esterase, ur Negative Negative [facility] Urine (Urine) 08/27/2017 10: 37 AM EDT 08/27/2017 10:59 AM EDT Kayla Casarez MD LAB URINE ORDERABLES Final Result [facility] 30 [place] [address] * CBC (08/27/2017 10:37 AM EDT) WBC 5.94 3.40 - 11.20 K/uL [facility] RBC 4.08 3.80 - 4.80 M/uL [facility] HGB 12.5 12.0 - 15.0 g/dL [facility] HCT 37.8 36.0 - 46.0 % [facility] PLT 260 130 - 400 K/uL [facility] MCV 92.6 79.0 - 98.0 fL [facility] MCH 30.6 27.0 - 34.8 pg [facility] MCHC 33.1 31.5 - 36.0 g/dL [facility] RDW 13.7 10.8 - 14.6 % [facility] MPV 11.1 9.4 - 12.4 fl [facility] NRBC 0.00 /100 WBCs [facility] ABSOLUTE NRBC 0.00 K/uL [facility] Blood 08/27/2017 10:3 7 AM EDT 08/27/2017 10:43 AM EDT Kayla Casarez MD LAB BLOOD BKR ORDERABLES Fi nal Result Performing Organization Address City/[facility]/ZIP Co de Phone Number [address] [address] * TSH with reflex (08/27/2017 10:37 AM EDT) TSH 3.16 0.27 - 4.20 uIU/mL [facility] Blood 08/27/2017 10:3 7 AM EDT 08/27/2017 10:43 AM EDT Kayla Casarez MD LAB BLOOD BKR ORDERABLES Fi nal Result Performing Organization Address City/[facility] Co de Phone Number [address] [address] * (ABNORMAL) Lipid panel (08/27/2017 10:37 AM EDT) HDL 81 mg/dL [facility] Comment: Interpretation: Risk Level Females Decreased >55mg/dL Average 50-55 mg/dL Increased <50 mg/dL CHOLESTEROL 194 0 - 240 mg/dL [facility] TRIGLYCERIDES 72 30 - 160 mg/dL [facility] LDL 99 50 - 129 mg/dL [facility] Comment: LDL levels in terms of risk for coronary heart disease: <100 mg/dL: Optimal 100-129 mg/dL: Near or above optimal 130-159 mg/dL: Borderline high 160-189 mg/dL: High >190 mg/dL: Very High CARDIAC RISK RATIO 2.4(L) 3.3 - 4.4 C [facility] Blood 08/27/2017 10:3 7 AM EDT 08/27/2017 10:43 AM EDT us Kayla Casarez MD LAB BLOOD BKR ORDERABLES Fi nal Result Performing Organization Address City/[facility]/ZIP Co de Phone Number [address] [address] * Comprehensive metabolic panel (08/27/2017 10:37 AM EDT) SODIUM 140 133 - 146 mmol/L [facility] POTASSIUM 4.5 3.3 - 5.1 mmol/L [facility] CHLORIDE 102 96 - 108 mmol/L [facility] CO2 26 21 - 35 mmol/L [facility] BUN 10 6 - 19 mg/dL [facility] CREATININE 0.60 0.5 - 1.5 mg/dL [facility] GLUCOSE 88 70 - 99 mg/dL [facility] ALBUMIN 4.1 3.9 - 4.8 g/dL [facility] TOTAL PROTEIN 7.3 6.5 - 8.0 g/dL [facility] CALCIUM 9.3 8.4 - 10.3 mg/dL [facility] ALKALINE PHOSPHATASE 69 39 - 117 U/L [facility] TOTAL BILIRUBIN 0.3 0.0 - 1.2 mg/dL [facility] AST 14 0 - 37 U/L [facility] ALT 11 0 - 40 U/L [facility] GLOBULIN 3.2 1 - 4.8 g/dL [facility] EGFR 101 >59 mL/min/1.7 3m2 [facility] Comment:If patient is black, multiply result by 1.159. The eGFR calculation has changed from the MDRD equation to the CKD-EPI equation as of May 27, 2017. ANION GAP 17 10 - 20 mmol/L [facility] Blood 08/27/2017 10:3 7 AM EDT 08/27/2017 10:43 AM EDT us Kayla Casarez MD LAB BLOOD BKR ORDERABLES Fi nal Result [address] [address] documented in this encounter Visit Diagnoses Diagnosis [...] documented as of this encounter Care Teams Instrumentation Engineer Relationship Specialty Start Date End Date Kayla Casarez MD [address] [place] [address] [email or web address] PCP - General 09/21/13 documented as of this encounter Additional Source Comments The information contained in this document represents components of the legal health record. It is not the complete legal health record.[facility]
--- OUTSIDE RECORDS SUMMARY | 2025-02-16 10:59 | XMS_ITS | Encounter Summary ---
Author Organization [facility] Address [address] [place] [address] Phone Care Team Providers Care Manager Internal Name Role Phone Kayla Casarez MD Primary Care Provider Encounter Details Date Type Department Care Team (Late st Contact Info) Description 11/27/2023 Community Orders [facility] Kayla Casarez MD [address] [place] [address] Social History Tobacco Use Types Packs/Day Years [...] st Contact Info) Description 01/25/2025 Procedure Pass [facility] [address] [address] 10/12/2025 11:00 AM EDT Appointment [address] [address] Kayla Casarez MD 15 [place] [address] 10/14/2025 10:00 AM EDT Office Visit [facility] [place] [facility] 15 [facility] [address] [place] [address] Paulina Torrez MD 15 [facility] Carlos. [address] [place] [address] [email or web address] documented as of this encounter Visit Diagnoses Not on filedocumented in this encounter Care Teams Manager Internal Relationship Specialty Start Date End Date Kayla Casarez MD 15 [place] [address] PCP - General 09/21/13 documented as of this encounter Additional Source Comments The information contained in this document represents components of the legal health record. It is not the complete legal health record.[facility]
--- OUTSIDE RECORDS SUMMARY | 2025-02-16 10:59 | XMS_ITS | Patient Health Record ---
Author [facility] [place] Address [address] [facility] [place] [address] Care Team Providers Care Switchboard Manager Name Role Phone Kayla Casarez MD Primary Care Provider Cami Biswas Unavailable [phone] Sabine Toledo Unavailable [phone] Allergies Allergen (clinical drug ingredient) Drug/Non Drug [...] W/U Status Risk Notes Problem Plantar wart (39633748) Plantar wart (B07.0) Active confirmed Problem Chronic pain (92007086) Other chronic pain (G89.29) Active confirmed Problem Psoriatic arthritis (824962622) Psoriatic arthritis (L40.50) Active confirmed Vital Signs Blood pressure diastolic 70 mm Hg 12/08/2024 Height 66 in 12/08/2024 Blood pressure systolic 120 mm Hg 12/08/2024 Weight 183 lbs 12/08/2024 BMI 29.53 kg/m2 12/08/2024 Procedures Procedure Date Ordered Date Performed Result Body Sit e 57379-Xyxl Destruction, 1-14 02/18/2024 N/A Encounters Encounter Location Date Provider Diagnosis [address] [address] 02/18/2024 Cami Murray Right foot pain M79.671 and Plantar wart B07.[address] [address] 06/09/2024 Sabine Perica Right foot pain M79.671 and Plantar wart B07.[address] [address] 09/08/2024 Sabine Perica Right foot pain M79.671 and Plantar wart B07.[address] [address] 12/08/2024 Sabine Perica Right foot pain M79.671 and Plantar wart B07.[address] [address] 02/18/2024 Cami Murray [address] [address] 04/28/2024 Cami Murray [address] [phone] Cami Murray [facility] [address] [place] [address] 06/09/2024 Cami Murray Assessments Encounter Date Diagnosis [...] X ray : Foot, right 3V 04/22/2018 64285-Vdvj Destruction, 1-14 03/31/2019 91803-Wlbs Destruction, 1-14 02/18/2024 Next Appt Details Provider Name:Sabine [place], 03/23/2025 09:15:00 AM, [address] [place], [address], Insurance Providers Payer Name Payer Address Payer Phone Subscriber Number Group Number Insured Name Patient Relationship to Insured Coverage Start Date Coverage End Date [facility] [address] [place] [address] [id number] Rozina Bonilla Self - patient is the insured Medical (General) History Medical History History ICD Code Arthritis thyroid Psoriatic arthritis Surgical History Surgery Date(Month/Year) umbilical hernia rt hernia
--- OUTSIDE RECORDS SUMMARY | 2025-02-16 10:59 | XMS_ITS | Clinical Summary ---
Author Organization [facility] Address [address] [place] [address] Care Team Providers Care Beater Out Leveling Machine Name Role Phone Unavailable Primary Care Provider [...]
--- OUTSIDE RECORDS SUMMARY | 2025-02-16 10:59 | XMS_ITS | Encounter Summary ---
Author Organization [facility] Address [address] [place] [address] Phone Care Team Providers Care Electrical Software Engineer Name Role Phone Kayla Casarez MD Primary Care Provider Encounter Details Date Type Department Care Team ([facility] Contact Info) Description 11/12/2023 Transcribe Orders Virtual Department 30 [place] [address] Kayla Casarez MD 15 [place], [place] [phone] [email or web address] Breast screening (Primary Dx) Social History Tobacco [...] st Contact Info) Description 01/25/2025 Procedure Pass [address] [address] 10/12/2025 11:00 AM EDT Appointment [address] [address] Kayla Casarez MD [address] [place] [address] [email or web address] 10/14/2025 10:00 AM EDT Office Visit [facility] [place] [facility] 15 [facility] [address] [place], [place] [phone] Paulina Torrez MD 15 [facility] Carlos. [address] [place] [address] [email or web address] documented as [...] be notified of the results and recommendations. Kayla Casarez MD IMG MG EXAMS Final Resul t documented in this encounter Visit Diagnoses Diagnosis Breast screening- Primary Breast screening, unspecified Breast screening Breast screening, unspecified documented in this encounter Care Teams Electrical Software Engineer Relationship Specialty Start Date End Date Kayla Casarez MD [address] [place] [address] [email or web address] PCP - General 09/21/13 documented as of this encounter Additional Source Comments The information contained in this document represents components of the legal health record. It is not the complete legal health record.[facility]
--- OUTSIDE RECORDS SUMMARY | 2025-02-16 10:59 | XMS_ITS | Encounter Summary ---
Author Organization [facility] Address [address] [place] [address] Phone Care Team Providers Care Table Worker Packager Name Role Phone Poly Casarez MD Primary Care Provider Encounter Details Date Type Department Care Team (Late st Contact Info) Description 11/03/2023 Transcribe Orders Virtual Department 30 [place] [address] Poly Casarez MD 15 [place], [place] [phone] [email or web address] Osteopenia, unspecified location (Primary Dx) Social History [...] st Contact Info) Description 01/25/2025 Procedure Pass [address] [address] 10/12/2025 11:00 AM EDT Appointment [address] [address] Poly Casarez MD 15 [place] [address] [email or web address] 10/14/2025 10:00 AM EDT Office Visit [facility] [place] [facility] 15 [facility] [address] [place], [place] [phone] Paulina Torrez MD [address] [address] [email or web address] documented as of this encounter Results * BD DXA AXIAL (SPINE) WITH HIP (10/20/2024 1:16 PM EDT) Anatomical Region Laterality Modality Bone Density Bone Density 10/20/2024 1:17 PM EDT Impressions 10/21/2024 12:44 PM EDT Interpretation: Osteopenia. Narrative 10/21/2024 12:44 PM EDT Referred By: POLY CASAREZ Indications: Osteopenia Scanner: Nulu A with serial# of [id number] located at [facility] Bone Density Scan (DXA) 10/20/24 Details [...] -2.5), or Osteoporosis (T-score <= -2.5). At [facility], T-scores are compared to peak bone [...] Referred By: POLY CASAREZ Indications: Osteopenia Scanner: Nulu A with serial# of [id number] located at [facility] Bone Density Scan (DXA) 10/20/24 Details [...] -2.5), or Osteoporosis (T-score <= -2.5). At [facility], T-scores are compared to peak bone [...] results. IMPRESSION: Interpretation: Osteopenia. Poly Casarez MD IM BD BONE DENSITY DEXA Fi nal Result documented in this encounter Visit Diagnoses Diagnosis Osteopenia, unspecified location- Primary Osteopenia, unspecified location documented in this encounter Care Teams Table Worker Packager Relationship Specialty Start Date End Date Poly Casarez MD [address] [place] [address] [email or web address] PCP - General 09/21/13 documented as of this encounter Additional Source Comments The information contained in this document represents components of the legal health record. It is not the complete legal health record.[facility]
== END 2025-02-16 10:28 | disposition home or self-care (01) ==
LOC: HO.RHES 09:39
PROVIDERS: PCP Internal Medicine; Visit Provider Internal Medicine Rheumatology
DX: L40.50 Arthropathic psoriasis, unspecified (principal); Z79.899 Other long term (current) drug therapy; K76.0 Fatty (change of) liver, not elsewhere classified
CPT/HCPCS: 99214; G2211

== ENCOUNTER 2025-02-16 09:38 | Outpatient (REF) | payer OTHER, SELFPAY ==
[2025-02-16 13:42] LABS: MANUAL DIFF FLAG NO
[2025-02-16 13:50] LABS: Hematocrit 42.6 % (37.0-47.0); Hemoglobin 14.2 g/dl (12.0-16.0); Imm Gran Abs Auto 0.00 X10*3/uL (0.00-0.03); Imm Gran Pct Auto 0.0 % (0.0-0.4); Lymphocytes Absolute Auto 3.2 X10*3/uL (1.2-4.9); Mean Corpuscular HGB Conc 33.3 g/dl (31.0-35.0); Mean Corpuscular Hemoglobin 32.1 pg (27.0-33.0); Mean Corpuscular Volume 96.2 fL (80.0-98.0); NRBC Abs Auto 0.000 X10*3/uL (0.0-0.012); NRBC Pct Auto 0.0 /100WBC (0.0-0.2); Platelet Count 213 X10*3/uL (160-400); Red Blood Count 4.43 X10*6/uL (4.20-5.50); White Blood Count 5.9 X10*3/uL (4.8-10.8)
[2025-02-16 14:32] LABS: Erythrocyte Sedimentation Rate 11 MM/HR (0-20)
[2025-02-16 18:33] LABS: Alanine Aminotransferase 18 U/L (0-31); Aspartate Amino Transferase 25 U/L (5-31); Estimated Glomerular Filt Rate > 60
== END 2025-02-16 09:39 | disposition home or self-care (01) ==
LOC: HO.HKASLDS 09:38
PROVIDERS: PCP Internal Medicine; Visit Provider Internal Medicine Rheumatology
DX: L40.50 Arthropathic psoriasis, unspecified (principal); K76.0 Fatty (change of) liver, not elsewhere classified; Z79.899 Other long term (current) drug therapy; Z79.620 Long term (current) use of immunosuppressive biologic
CPT/HCPCS: 36415; 82565; 84450; 84460; 85025; 85652; 86140